=== PATIENT | female | born 1950 | race Caucasian/White ===

== ENCOUNTER → 2018-06-01 09:03 | Outpatient (CLI) | payer OTHER, SELFPAY ==
--- NOTE | 2018-06-01 09:10 | RAD_ITS ---
STUDY: X-RAY - LUMBAR SPINE REASON FOR EXAM: Female, 67 years old. Pain in lower back for years recently worsening. TECHNIQUE: 5 view(s) of the lumbar spine were obtained. COMPARISON: None FINDINGS: There is mild exaggeration of the lumbar lordosis. There is no substantial scoliosis. There is anterolisthesis of L5 on S1 of 3 mm. The alignment is otherwise preserved. There is mild multilevel endplate spondylosis of the lumbar vertebrae. Normal disc space heights. There is no evidence of acute fracture or loss of vertebral axial height. There is there is diffuse facet joint degenerative change without demonstrated spondylolysis of the pars interarticulares. There is atherosclerotic calcification of the abdominal aorta without a demonstrated aneurysm. RAD/L/S Spine Min 4 Views IMPRESSION: Degenerative changes of the lumbar spine as above. Electronically Signed: Fahad Maki DO at 16:59 EDT Tel [phone], Service support ,
== END ==
PROVIDERS: Family Provider Internal Medicine; PCP Internal Medicine; Visit Provider Anesthesiology Pain Medicine
DX: M54.5 Low back pain (principal)
CPT/HCPCS: 72110

== ENCOUNTER 2018-06-04 17:26 | Inpatient (IN) | payer OTHER, SELFPAY ==
[2018-06-04] VITALS (8 sets, daily range): BP systolic 115–128; BP diastolic 70–102; PULSE 79–113; RESP 14–20; TEMP 36.6; O2SAT 94–100; BMI 22.3; BMI 22.5; BMI 22.4
--- NOTE | 2018-06-04 17:48 | RAD_ITS ---
STUDY: X-RAY CHEST REASON FOR EXAM: Female, 67 years old. Dyspnea TECHNIQUE: Frontal view COMPARISON: None. FINDINGS: The lungs are clear and expanded. There is no demonstrated pleural abnormality. Normal size heart. Normal mediastinum and jonathon. Normal visualized pulmonary arteries. Normal visualized aortic arch and descending thoracic aorta. Normal visualized thoracic spine. Normal visualized ribs, clavicles, and shoulders. There is no demonstrated abnormality of the visualized soft tissue structures of the upper abdomen. RAD/Chest 1 View (Portable) IMPRESSION: Normal x-ray examination of the chest. Electronically Signed: Gentry Junior DO at 18:49 EDT Tel [phone], Service support ,
--- NOTE | 2018-06-04 17:48 | EKG12_ITS ---
Test Reason : VOMTTING Blood Pressure : / mmHG Vent. Rate : 095 BPM Atrial Rate : 095 BPM P-R Int : 146 ms QRS Dur : 088 ms QT Int : 360 ms P-R-T Axes : 077 066 076 degrees QTc Int : 452 ms Normal sinus rhythm Possible Left atrial enlargement Nonspecific ST abnormality Abnormal ECG Confirmed by BRAIN COLIN, REJI ([id number]), photograph editor PJ SANCHEZ ([id number] on 06/08/2018 2:52:41 PM Referred By: Sandeep Mehta Confirmed By:REJI DE LA PAZ MD
--- NOTE | 2018-06-04 17:53 | NURSING ---
NO OLD EKGS
[2018-06-04] MEDS: Ipratropium/Albuterol Sulfate 3 ML AMPUL.NEB INHALATION (18:00)
--- NOTE | 2018-06-04 18:05 | ED.VISSUMM ---
- ER Visit Summary Date of Service: 06/04/18 Chief Complaint: Shortness of breath History of Present Illness: The patient is a 67 F with shortness of breath today. The patient also reports nausea, vomiting, cough, congestion, cramps, and increased stoma output. She is worried she might be dehydrated. She has a history of colorectal cancer which was diagnosed and treated about 20 years ago. She does have an ostomy. She is denying any abdominal pain or bleeding. Denying fevers. She is a smoker. Physical Examination: Afebrile. Heart rate 113. 100% on room air. Sitting comfortably but breathing loudly. Nonlabored. Alert and oriented. HEENT exam unremarkable. Heart tachycardic but regular. Lungs show wheezing throughout all [place] with expiration. Abdomen is soft and nontender with slightly hyperactive bowel sounds. Skin appears unremarkable. Test Results: EKG shows sinus rhythm at a rate of [address] and T wave changes. Laboratory studies and chest x-ray are pending. Emergency Department Course and Treatment: Patient placed on a monitor. Treated with a small fluid bolus, Zofran, and a DuoNeb treatment. Will reassess. Lab work showed a white count of 14.7. She met Sirs criteria. Additional fluids were started. Lactate and cultures were added. Labs showed hyponatremia and acute kidney injury. Urinalysis and chest x-ray unremarkable. Troponin normal. Lactate 1.7. Patient looks and feels better after fluids and albuterol. She was covered with Azactam and vancomycin. Hospitalist was contacted for admission. Treatment Plan: As above Disposition: Admission to PCU Impression: 1. Hyponatremia 2. Acute kidney injury 3. Leukocytosis This note was generated with [employer] dictation software. It may contain incorrect words, spelling, and punctuation that were not noted in review of the chart prior to signing ED Disposition - Plan for ED Patient: Chief Complaint: Nausea/Vomiting/Diarrhea Referrals: Daphne Polanco DO [Primary Care Provider] -
[2018-06-04 18:14] LABS: Absolute Lymphocyte Count 1.49 X10^3/ul (0.83-4.51); Absolute Neutrophil Count 12.1 X10^3/uL (2.0-7.7); Basophil# 0.01 X10^3/uL; Basophil% 0.1 % (0-1); Eosinophil# 0.02 X10^3/uL; Eosinophils% 0.1 % (0-5); Lymphocyte # 1.49 X10^3/ul (4.0); Lymphocyte % 10.1 % (19-41); Mean Platelet Vol. 9.8 fl (6.2-12.0); Monocyte# 1.05 X10^3/uL; Monocyte% 7.1 % (0-10); Neutrophil # 12.11 X10^3/uL (2.7-7.7); Neutrophil % 82.4 % (47-70); Platelet Count 235 K/mm3 (150-450); RBC Distribution Width CV 12.6 % (11.6-14.6); RBC Distribution Width SD 40.3 fl (35.1-43.9); Red Blood Count 5.16 M/mm3 (4.2-5.4); White Blood Count 14.7 K/mm3 (4.4-11.0)
[2018-06-04] MEDS: Ondansetron 4 MG/2 ML Vial IV (18:15)
[2018-06-04 18:33] LABS: AST(SGOT) 69 U/L (15-37); Alanine Aminotransfer ALT/SGPT 111 U/L (13-56); Albumin, Serum 4.5 g/dL (3.2-5.0); Alkaline Phosphatase 69 U/L (45-117); Anion Gap 16 (5-15); BUN 48 mg/dL (7-18); BUN/Creat Ratio 19.8 RATIO (10-20); Calcium,Total 9.5 mg/dL (8.5-10.1); Chloride 79 mmol/L (98-107); Creatinine, Serum 2.43 mg/dL (0.55-1.02); EST Glomerular Filtration Rate 21 mL/min (>60); Est Glom Filt Rate - Afr Amer 26 mL/min (>60); Estimated Creatinine Clearance 19.93 ml/min; Globulin 4.6 g/dL (2.2-4.2); Glucose 149 mg/dL (74-106); Potassium 3.8 mmol/L (3.5-5.1); Protein, Total 9.1 g/dL (6.4-8.2); Sodium Level 113 mmol/L (136-145)
--- NOTE | 2018-06-04 18:33 | ED.RN ---
DR. PATEL AWARE OF NA LEVEL 113.
[2018-06-04 18:42] LABS: Hemoglobin 15.8 g/dl (12.0-15.0)
[2018-06-04 18:43] LABS: Differential Indicated SCAN CRITERIA MET; Hematocrit 45.5 % (37-47); POSITIVE COUNT YES; POSITIVE DIFFERENTIAL NO; POSITIVE MORPHOLOGY YES
[2018-06-04 18:44] LABS: Mean Corp Hgb Conc 34.7 g/gl (32-36); Mean Corpuscular Hgb 30.4 pg (27.0-32.0); Mean Corpuscular Volume 87.7 fL (81-99)
[2018-06-04 19:02] LABS: Platelet Estimate ADEQUATE (ADEQ); Red Cell Morphology NORM C+C NORMAL (NORM C&C)
[2018-06-04] MEDS: 0.9% Normal Saline 1,000 ML 999 ML IV (19:33)
[2018-06-04 19:48] LABS: Mucous, Urine 0 SEEN /hpf (<or=2+); Red Blood Cells-Urine 0 SEEN /hpf (0-5)
[2018-06-04 19:57] LABS: Color, Urine Yellow (Yellow); Glucose, Dipstick Normal (Normal); Ketone-Dipstick Negative (Negative); Leukocyte Esterase-Dipstick 100 /ul (Negative); Nitrite-Dipstick Negative (Negative); Occult Blood-Urine 50 /ul (Negative); Protein-Dipstick 30 mg/dl (Negative); Urine Bilirubin Dipstick Negative (Negative); Urine Clarity Clear (Clear); Urine Urobilinogen Normal (Normal)
[2018-06-04 20:05] LABS: Bacteria RARE /hpf (None Seen); Squamous Epithelial Cells - UA 0-5 SEEN /hpf (5-10)
[2018-06-04 20:06] LABS: White Blood Cells 0-5 SEEN /hpf (0-5)
[2018-06-04 20:15] LABS: Lactic Acid 1.7 mmol/L (0.4-2.0)
[2018-06-04] MEDS: Vancomycin IV 1,000 MG/200 ML BAG 200 MG IV (20:38)
--- NOTE | 2018-06-04 21:43 | HP.PCM_ITS ---
Problem List (1) COPD with acute exacerbation Status: Acute (2) Acute viral syndrome Status: Acute (3) Hyponatremia Status: Acute (4) AMAURY (acute kidney injury) Status: Acute (5) Chronic obstructive pulmonary disease Status: Chronic Qualifiers: COPD type: unspecified COPD Qualified Code(s): J44.9 - Chronic obstructive pulmonary disease, unspecified (6) History of colorectal cancer Status: Chronic (7) History of creation of ostomy Status: Chronic (8) Tobacco use Status: Chronic (9) Hypothyroidism Status: Chronic Qualifiers: Hypothyroidism type: unspecified Qualified Code(s): E03.9 - Hypothyroidism, unspecified History of Present Illness Date of Admission: 06/04/18 Chief Complaint: Dyspnea, cough, wheezing, increased ostomy output, N/V The patient is a 67 y/o F w/ PMHx: Chronic COPD, Tobacco use, History of Colorectal Cancer s/p colectomy w/ ostomy, Hypothyroidism who presents to the [facility] ED on 06/04/18 with history of 4-5-day history of dyspnea, cough with mild sputum production, congestion, nausea as well as occasional dry heaving, abdominal cramps and poor intake with increased ostomy output progressively worsening especially over the last 24 hours. She denied any recent seizure activity or mental status changes or neurological symptoms. In the ED workup included T 97.8, heart rate 113, BP 118/71, respiratory rate 17, 100% on room air, CBC with W BC 14.7, hemoglobin 15.8, platelet 235 with left shift, CMP with sodium 113, chloride 79, carbon dioxide 18, anion gap 16, BUN/Cr 48/2.43, glucose 149, lactic acid 1.7, AST/ALT 69/111, troponin less than 0.015, urinalysis with no evidence of acute infection but evidence of dehydration, chest x-ray with no acute process identified. The ED pending chest x-ray given presentation initially administered aztreonam and vancomycin for possible pne umonia, duonebs, Solu-Medrol, normal saline. Past Medical History Past Medical History (Chronic Problems): Chronic Problems Chronic obstructive pulmonary disease (Chronic) History of colorectal cancer (Chronic) History of creation of ostomy (Chronic) Tobacco use (Chronic) Hypothyroidism (Chronic) Allergies Penicillins Allergy (Verified 06/04/18 17:27) Other Home Medications: Ambulatory Orders Medication Instructions Recorded Acetaminophen/Codeine #3 [Tylenol 1 tab PO 4X/DAY 06/04/18 #3 Tablet] Citalopram Hydrobromide 20 mg PO DAILY 06/04/18 [Citalopram HBr] Cyanocobalamin [Vitamin B12] 100 mcg IM QWEEK 06/04/18 Levothyroxine [Synthroid] 100 mcg PO DAILY 06/04/18 Surgical History: - - Patient status post total colectomy with ostomy, tonsillectomy. 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 Tobacco Use: Cigarettes Alcohol: Occasional Drugs: None - *Family History Maternal History Items: - - Patient denies any marked paternal or maternal family history including heart disease, diabetes, cancer. Paternal History Items: - - Patient denies any marked paternal or maternal family history including heart disease, diabetes, cancer. Review of Systems Constitutional: Reports: Anorexia, Malaise, Weakness, Fatigue. Denies: Chills, Fever, Weight Change HEENT: Denies: Head Aches, Sinus Congestion, Sinus Drainage Cardiovascular: Denies: Chest Pain, Palpitations Respiratory: Reports: Cough, Shortness of Breath, Shortness of breath at rest, Shortness of breath upon exertion, Sputum production, Wheezing Gastrointestinal: Reports: Abdominal Pain, Nausea, Vomiting, - - Increased ostomy output. Genitourinary: Denies: Dysuria Musculoskeletal: Reports: Back Pain. Denies: Joint Pain, Joint Tenderness Skin: Denies: Rash, Wounds Neurological: Denies: Numbness, Tingling, Focal weakness Psychiatric: Reports: Anxiety, Depression. Denies: Homicidal Ideations, Suicidal Ideations Hematologic/ Lymphatic: Denies: Easy Bruising, Easy Bleeding VTE Information - Inpt Only VTE Present on Admission: No VTE Mechan Device Prophylaxis: SCD's VTE Pharm Prophylaxis ordered?: Yes Patient Problems: Active and Suspected Problems COPD with acute exacerbation (Acute) Acute viral syndrome (Acute) Hyponatremia (Acute) AMAURY (acute kidney injury) (Acute) Subjective: Seated upright in the ED bed, fatigued appearance, notes feeling improved since initial presentation. Objective: Physical Examination: General: awake, alert, oriented x 3 and cooperative, seated upright in the ED bed in no apparent distress, fatigued appearance. Skin: normal color, turgor, no icterus, cyanosis. HEENT: AT/NC, EOMI, PERRLA, MMM, no carotid bruits or JVD noted. Lungs: Diminished BS, > BL bases, moderate effort, expiratory distant wheezing, no rales or ronchi. Heart: Tachycardic with regular rhythm; no gallop, rub audible. Abdomen: soft, mild generalized discomfort to palpation, no marked distention, hyperactive BS, ostomy present, no HSM. Extremities: no cyanosis, clubbing, or edema. Neurological: patient awake, alert, oriented x 3; cognitive function intact; pupils equally reactive to light and accomodation; cranial nerves II-XII grossly normal, moving all 4 extremities, no focal deficits, strength moderately globally decreased secondary to acute presentation. Psychiatric: affect appears mildly flat, no acute evidence of depressive or anxiety feelings. - Physical Exam Vital Signs Temp Pulse Resp BP Pulse Ox 97.8 F 101 H 17 127/85 H 95 06/04/18 17:28 06/04/18 21:05 06/04/18 21:05 06/04/18 21:05 06/04/18 21:05 Oxygen Delivery Method Room Air Weight: 130 lb 1.164 oz Body Mass Index (BMI) 22.3 Laboratory Tests Past 24 Hrs 06/04/18 06/04/18 06/04/18 18:05 18:05 19:35 WBC 14.7 H RBC 5.16 Hgb 15.8 H Hct 45.5 MCV 87.7 MCH 30.4 MCHC 34.7 RDW 12.6 RDW Differential 40.3 Plt Count 235 MPV 9.8 Immature Gran % (Auto) 0.200 Neut % (Auto) 82.4 H Lymph % (Auto) 10.1 L [place] % (Auto) 7.1 Eos % (Auto) 0.1 Baso % (Auto) 0.1 Absolute Neuts (auto) 12.1 H Absolute Lymphs (auto) 1.49 Total Counted Not Reportable Platelet Estimate ADEQUATE RBC Morphology NORM C+C Sodium 113 L* Potassium 3.8 Chloride 79 L Carbon Dioxide 18.0 L Anion Gap 16 H BUN 48 H Creatinine 2.43 H Estim Creat Clear Calc 19.93 Est GFR (MDRD) Af Amer 26 L Est GFR (MDRD) Non-Af 21 L BUN/Creatinine Ratio 19.8 Glucose 149 H Lactic Acid 1.7 Calcium 9.5 Total Bilirubin 0.90 AST 69 H ALT 111 H Alkaline Phosphatase 69 Troponin I < 0.015 Total Protein 9.1 H Albumin 4.5 Globulin 4.6 H Albumin/Globulin Ratio 1.0 Urine Color Urine Clarity Urine pH Ur Specific [place] Urine Protein Urine Glucose (UA) Urine Ketones Urine Occult Blood Urine Nitrite Urine Bilirubin Urine Urobilinogen Ur Leukocyte Esterase Urine RBC Urine WBC Ur Squamous Epith Cells Urine Bacteria Urine Mucus 06/04/18 19:35 WBC RBC Hgb Hct MCV MCH MCHC RDW RDW Differential Plt Count MPV Immature Gran % (Auto) Neut % (Auto) Lymph % (Auto) [place] % (Auto) Eos % (Auto) Baso % (Auto) Absolute Neuts (auto) Absolute Lymphs (auto) Total Counted Platelet Estimate RBC Morphology Sodium Potassium Chloride Carbon Dioxide Anion Gap BUN Creatinine Estim Creat Clear Calc Est GFR (MDRD) Af Amer Est GFR (MDRD) Non-Af BUN/Creatinine Ratio Glucose Lactic Acid Calcium Total Bilirubin AST ALT Alkaline Phosphatase Troponin I Total Protein Albumin Globulin Albumin/Globulin Ratio Urine Color Yellow Urine Clarity Clear Urine pH 5.0 Ur Specific [place] 1.020 Urine Protein 30 H Urine Glucose (UA) Normal Urine Ketones Negative Urine Occult Blood 50 H Urine Nitrite Negative Urine Bilirubin Negative Urine Urobilinogen Normal Ur Leukocyte Esterase 100 H Urine RBC 0 SEEN Urine WBC 0-5 SEEN Ur Squamous Epith Cells 0-5 SEEN Urine Bacteria RARE Urine Mucus 0 SEEN Assessment/Plan All Active Problems COPD with acute exacerbation (Acute) Acute viral syndrome (Acute) Hyponatremia (Acute) AMAURY (acute kidney injury) (Acute) The patient is a 67 y/o F w/ PMHx: Chronic COPD, Tobacco use, History of Colorectal Cancer s/p colectomy w/ ostomy, Hypothyroidism who presents to the [facility] ED on 06/04/18 with history of 4-5-day history of dyspnea, cough with mild sputum production, congestion, nausea as well as occasional dry heaving, abdominal cramps and poor intake with increased ostomy output progressively worsening especially over the last 24 hours. (1) Acute Sepsis secondary to Suspected Acute Viral Syndrome (See #2) and Acute on chronic COPD exacerbation: CXR w/ chronic changes, CBC on admission w/ WBC 14.7 with L shift, afebrile upon presentation, LA 1.7. Will admit to PCU, maintain on oxygen with wean as tolerated to room air, continue ATC duonebs, PRN albuterol, IV methylprednisolone, HOB, IS parameters, IV Azithromcyin with pending sputum cultures, urine antigens, respiratory viral panel. Suspect that patient likely had viral illness w/ upper respiratory and GI symptoms w/ then exacerbation of her COPD. (2) N/V/Increased ostomy output, ? Acute Viral Syndrome w/ Gastroenteritis: Will continue hydration, will obtain c diff, stool cx with repeat AM CBC. Res piratory viral panel as noted also requested. On abx for concurrent COPD exacerbation given WBC elevation and shift. Anti-emetics, pain regimen PRN. (3) Acute kidney injury: Secondary to GI losses with viral illness suspected as noted. Admission BUN/Cr 48/2.43, prior baseline creatinine not known but no prior history of renal disease. Repeat BMP upon admission w/ improvement BUN/Cr 46/1.67. Will hydrate, hold nephrotoxic medications with repeat BMP q 4 and in AM secondary to severity of hyponatremia. Will obtain FeNa assessment. (4) Severe Hyponatremia, Hypovolemic: Admission Na 113, notably history of N/V, increased ostomy output w/ suspected acute viral syndrome as noted. Will obtain TSH, mag level, FeNa as noted. Patient is on Citalopram; however, denies history of prior chronic hyponatremia, thus will continue and suspect this is only secondary to her acute presentation. Will continue to hydrate, obtain serial BMP and repeat in AM to trend correction of Na. (5) Tobacco Abuse: Encouraged cessation, inpatient consultation per RT, NR if desired. (6) Anxiety and Depression: Given presentation, likely acute hypovolemic hyponatremia, will continue patient SSRI. (7) Hypothyroidism: Continue home synthroid regimen, TSH pending. (8) History of Colorectal Cancer: s/p colectomy w/ ostomy, closely monitor ostomy output, staff genetic counselor consultation. (9) DVT Prophylaxis: SCDs, heparin. Code Visit Inpatient E&M: 27940 Init Hosp L3
[2018-06-04 22:41] LABS: Urine Sodium < 5 mmol/L (Not Establ.)
[2018-06-04 22:51] LABS: Anion Gap 13 (5-15); BUN 46 mg/dL (7-18); BUN/Creat Ratio 27.5 RATIO (10-20); Calcium,Total 7.9 mg/dL (8.5-10.1); Chloride 87 mmol/L (98-107); Creatinine, Serum 1.67 mg/dL (0.55-1.02); EST Glomerular Filtration Rate 33 mL/min (>60); Est Glom Filt Rate - Afr Amer 40 mL/min (>60); Glucose 108 mg/dL (74-106); Magnesium 1.8 mg/dL (1.6-2.6); Potassium 3.1 mmol/L (3.5-5.1); Sodium Level 116 mmol/L (136-145)
[2018-06-04 22:53] LABS: Phosphorus 3.8 mg/dL (2.5-4.9); Thyroid Stim Hormone (TSH) 2.34 uIU/mL (0.358-3.74)
[2018-06-04] MEDS: oxyCODONE 5 MG Tablet PO (23:02)
[2018-06-04] MEDS: guaiFENesin 1,200 MG Tablet 1200 MG PO ×2 (23:02)
[2018-06-04] MEDS: 0.9% Normal Saline 1,000 ML 125 ML IV (23:03)
[2018-06-04] MEDS: Heparin Injection (Vial) 5,000 UNIT/ML VIAL 5000 UNIT SC (23:03)
[2018-06-05] VITALS (15 sets, daily range): BP systolic 116–121; BP diastolic 59–68; PULSE 81–112; RESP 16–20; TEMP 36.8–37; O2SAT 94–96
[2018-06-05] MEDS: Ipratropium/Albuterol Sulfate 3 ML AMPUL.NEB INHALATION ×4 (00:15→10:54)
[2018-06-05 02:04] LABS: Absolute Lymphocyte Count 0.94 X10^3/ul (0.83-4.51); Absolute Neutrophil Count 10.4 X10^3/uL (2.0-7.7); Basophil# 0.01 X10^3/uL; Basophil% 0.1 % (0-1); Eosinophil# 0.01 X10^3/uL; Eosinophils% 0.1 % (0-5); Hematocrit 38.1 % (37-47); Hemoglobin 13.8 g/dl (12.0-15.0); Lymphocyte # 0.94 X10^3/ul (4.0); Lymphocyte % 7.8 % (19-41); Mean Corp Hgb Conc 36.2 g/gl (32-36); Mean Corpuscular Hgb 31.9 pg (27.0-32.0); Mean Platelet Vol. 9.3 fl (6.2-12.0); Neutrophil % 86.8 % (47-70); Platelet Count 199 K/mm3 (150-450); RBC Distribution Width CV 12.2 % (11.6-14.6); RBC Distribution Width SD 38.8 fl (35.1-43.9); Red Blood Count 4.33 M/mm3 (4.2-5.4)
[2018-06-05 02:05] LABS: POSITIVE COUNT NO; POSITIVE DIFFERENTIAL NO; POSITIVE MORPHOLOGY NO
[2018-06-05 02:19] LABS: Anion Gap 12 (5-15); BUN 41 mg/dL (7-18); BUN/Creat Ratio 28.7 RATIO (10-20); Calcium,Total 8.2 mg/dL (8.5-10.1); Chloride 91 mmol/L (98-107); Creatinine, Serum 1.43 mg/dL (0.55-1.02); EST Glomerular Filtration Rate 39 mL/min (>60); Est Glom Filt Rate - Afr Amer 47 mL/min (>60); Estimated Creatinine Clearance 33.87 ml/min; Glucose 134 mg/dL (74-106); Potassium 3.5 mmol/L (3.5-5.1); Sodium Level 120 mmol/L (136-145)
[2018-06-05] MEDS: Heparin Injection (Vial) 5,000 UNIT/ML VIAL 5000 UNIT SC ×3 (06:17→21:58)
[2018-06-05] MEDS: Levothyroxine 100 MCG Tablet PO (06:18)
[2018-06-05] MEDS: 0.9% Normal Saline 1,000 ML 125 ML IV ×3 (06:18→19:42)
[2018-06-05 06:41] LABS: AST(SGOT) 73 U/L (15-37); Alanine Aminotransfer ALT/SGPT 84 U/L (13-56); Albumin, Serum 3.6 g/dL (3.2-5.0); Alkaline Phosphatase 52 U/L (45-117); Anion Gap 11 (5-15); BUN 34 mg/dL (7-18); BUN/Creat Ratio 25.6 RATIO (10-20); Calcium,Total 8.2 mg/dL (8.5-10.1); Chloride 95 mmol/L (98-107); Creatinine, Serum 1.33 mg/dL (0.55-1.02); EST Glomerular Filtration Rate 42 mL/min (>60); Est Glom Filt Rate - Afr Amer 51 mL/min (>60); Estimated Creatinine Clearance 36.42 ml/min; Globulin 3.5 g/dL (2.2-4.2); Glucose 153 mg/dL (74-106); Potassium 3.9 mmol/L (3.5-5.1); Protein, Total 7.1 g/dL (6.4-8.2); Sodium Level 124 mmol/L (136-145)
[2018-06-05] MEDS: Acetaminophen 325 MG Tablet 650 MG PO (07:47)
[2018-06-05] MEDS: Citalopram 20 MG Tablet PO (10:15)
--- NOTE | 2018-06-05 11:17 | NURSING ---
Pt states she cares for her own ostomy. states she has had it since she was in her 30's. denies any needs or supplies.
--- NOTE | 2018-06-05 11:41 | PN_ITS ---
Patient Problems: Active and Suspected Problems COPD with acute exacerbation (Acute) Acute viral syndrome (Acute) Hyponatremia (Acute) AMAURY (acute kidney injury) (Acute) Subjective: Patient was seen and examined today, she cannot remember why she came to the hospital, she does not appear to be in any distress and otherwise she is c arrying on a conversation appropriately. Lab called and she is positive for Shiga toxin, she will need antibiotics for this. Patient's lungs are clear, breath sounds are somewhat distant, I do not believe she needs IV Zithromax at this time. Patient states she is a water drinker and drinks water all day long. Her hyponatremia is better, I think most of the sodium loss was from her gastroenteritis. - Physical Exam General: Alert, Oriented x3, Cooperative, No apparent distress, Well developed, Well nourished HEENT: Atraumatic, PERRLA, EOMI, Normocephalic Oral: Moist Mucosa Neck: Supple, No Nuchal Rigidity, Trachea Midline, Thyroid Normal Size and Texture Lungs: Clear to auscultation, Normal air movement, No rhonchi, No wheeze, No rales Cardiovascular: Regular rate, Regular Rhythm, Normal S1, Normal S2, No murmurs Abdomen: Bowel Sounds Present, Soft, Non Tender, Non-Distended Extremities: No clubbing, No cyanosis, No edema, Capillary Refill Less than 3 Seconds Skin: No rashes, No breakdown Musculoskeletal: No Tenderness to Palpation of Joints or Extremities Neurological: Cranial nerves II-XII grossly intact, Sensory exam intact to light touch and pain, Coordination normal Psych/Mental Status: Normal Affect, Appropriate, Alert and oriented to time, place, person, mood and affect Vital Signs Temp Pulse Resp BP Pulse Ox 98.6 F 92 18 116/68 95 06/05/18 10:12 06/05/18 11:03 06/05/18 10:12 06/05/18 10:12 06/05/18 10:12 Oxygen Delivery Method Room Air Weight: 59.1 kg Body Mass Index (BMI) 22.4 Intake and Output for Last 24 Hours 06/03/18 06/04/18 06/05/18 23:59 23:59 23:59 Intake Total 2751 / 2751 Balance 2751 / 2751 Microbiology Past 72 Hours 06/04/18 22:55 Enteric Bacteriology - Final Stool Shiga Toxin 1 06/05/18 00:30 Respiratory Panel (PCR) - Final Mucosa - Nasopharyngeal 06/04/18 22:55 C. difficile DNA Amplification - Final Stool 06/04/18 19:35 Streptococcus pneumoniae Antigen (M - Final Urine, Clean Catch 06/04/18 19:35 Legionella Antigen - Final Urine, Clean Catch Laboratory Tests Past 24 Hrs 06/04/18 06/04/18 06/04/18 18:05 18:05 19:35 WBC 14.7 H RBC 5.16 Hgb 15.8 H Hct 45.5 MCV 87.7 MCH 30.4 MCHC 34.7 RDW 12.6 RDW Differential 40.3 Plt Count 235 MPV 9.8 Immature Gran % (Auto) 0.200 Neut % (Auto) 82.4 H Lymph % (Auto) 10.1 L [place] % (Auto) 7.1 Eos % (Auto) 0.1 Baso % (Auto) 0.1 Absolute Neuts (auto) 12.1 H Absolute Lymphs (auto) 1.49 Total Counted Not Reportable Platelet Estimate ADEQUATE RBC Morphology NORM C+C Sodium 113 L* Potassium 3.8 Chloride 79 L Carbon Dioxide 18.0 L Anion Gap 16 H BUN 48 H Creatinine 2.43 H Estim Creat Clear Calc 19.93 Est GFR (MDRD) Af Amer 26 L Est GFR (MDRD) Non-Af 21 L BUN/Creatinine Ratio 19.8 Glucose 149 H Lactic Acid 1.7 Calcium 9.5 Phosphorus Magnesium Total Bilirubin 0.90 AST 69 H ALT 111 H Alkaline Phosphatase 69 Troponin I < 0.015 Total Protein 9.1 H Albumin 4.5 Globulin 4.6 H Albumin/Globulin Ratio 1.0 TSH Urine Color Urine Clarity Urine pH Ur Specific [place] Urine Protein Urine Glucose (UA) Urine Ketones Urine Occult Blood Urine Nitrite Urine Bilirubin Urine Urobilinogen Ur Leukocyte Esterase Urine RBC Urine WBC Ur Squamous Epith Cells Urine Bacteria Urine Mucus Ur Random Sodium Urine Creatinine 06/04/18 06/04/18 06/04/18 19:35 19:35 19:35 WBC RBC Hgb Hct MCV MCH MCHC RDW RDW Differential Plt Count MPV Immature Gran % (Auto) Neut % (Auto) Lymph % (Auto) [place] % (Auto) Eos % (Auto) Baso % (Auto) Absolute Neuts (auto) Absolute Lymphs (auto) Total Counted Platelet Estimate RBC Morphology Sodium Potassium Chloride Carbon Dioxide Anion Gap BUN Creatinine Estim Creat Clear Calc Est GFR (MDRD) Af Amer Est GFR (MDRD) Non-Af BUN/Creatinine Ratio Glucose Lactic Acid Calcium Phosphorus Magnesium Total Bilirubin AST ALT Alkaline Phosphatase Troponin I Total Protein Albumin Globulin Albumin/Globulin Ratio TSH Urine Color Yellow Urine Clarity Clear Urine pH 5.0 Ur Specific [place] 1.020 Urine Protein 30 H Urine Glucose (UA) Normal Urine Ketones Negative Urine Occult Blood 50 H Urine Nitrite Negative Urine Bilirubin Negative Urine Urobilinogen Normal Ur Leukocyte Esterase 100 H Urine RBC 0 SEEN Urine WBC 0-5 SEEN Ur Squamous Epith Cells 0-5 SEEN Urine Bacteria RARE Urine Mucus 0 SEEN Ur Random Sodium < 5 Urine Creatinine 239.00 06/04/18 06/04/18 06/05/18 22:22 22:22 01:53 WBC RBC Hgb Hct MCV MCH MCHC RDW RDW Differential Plt Count MPV Immature Gran % (Auto) Neut % (Auto) Lymph % (Auto) [place] % (Auto) Eos % (Auto) Baso % (Auto) Absolute Neuts (auto) Absolute Lymphs (auto) Total Counted Platelet Estimate RBC Morphology Sodium 116 L* 120 L Potassium 3.1 L 3.5 Chloride 87 L 91 L Carbon Dioxide 16.0 L 17.0 L Anion Gap 13 12 BUN 46 H 41 H Creatinine 1.67 H 1.43 H Estim Creat Clear Calc 29.00 33.87 Est GFR (MDRD) Af Amer 40 L 47 L Est GFR (MDRD) Non-Af 33 L 39 L BUN/Creatinine Ratio 27.5 H 28.7 H Glucose 108 H 134 H Lactic Acid Calcium 7.9 L 8.2 L Phosphorus 3.8 Magnesium 1.8 Total Bilirubin AST ALT Alkaline Phosphatase Troponin I Total Protein Albumin Globulin Albumin/Globulin Ratio TSH 2.34 Urine Color Urine Clarity Urine pH Ur Specific [place] Urine Protein Urine Glucose (UA) Urine Ketones Urine Occult Blood Urine Nitrite Urine Bilirubin Urine Urobilinogen Ur Leukocyte Esterase Urine RBC Urine WBC Ur Squamous Epith Cells Urine Bacteria Urine Mucus Ur Random Sodium Urine Creatinine 06/05/18 06/05/18 01:53 05:40 WBC 12.0 H RBC 4.33 Hgb 13.8 Hct 38.1 MCV 88.0 MCH 31.9 MCHC 36.2 H RDW 12.2 RDW Differential 38.8 Plt Count 199 MPV 9.3 Immature Gran % (Auto) 0.200 Neut % (Auto) 86.8 H Lymph % (Auto) 7.8 L [place] % (Auto) 5.0 Eos % (Auto) 0.1 Baso % (Auto) 0.1 Absolute Neuts (auto) 10.4 H Absolute Lymphs (auto) 0.94 Total Counted Not Reportable Platelet Estimate RBC Morphology Sodium 124 L Potassium 3.9 Chloride 95 L Carbon Dioxide 18.0 L Anion Gap 11 BUN 34 H Creatinine 1.33 H Estim Creat Clear Calc 36.42 Est GFR (MDRD) Af Amer 51 L Est GFR (MDRD) Non-Af 42 L BUN/Creatinine Ratio 25.6 H Glucose 153 H Lactic Acid Calcium 8.2 L Phosphorus Magnesium Total Bilirubin 0.70 AST 73 H ALT 84 H Alkaline Phosphatase 52 Troponin I Total Protein 7.1 Albumin 3.6 Globulin 3.5 Albumin/Globulin Ratio 1.0 TSH Urine Color Urine Clarity Urine pH Ur Specific [place] Urine Protein Urine Glucose (UA) Urine Ketones Urine Occult Blood Urine Nitrite Urine Bilirubin Urine Urobilinogen Ur Leukocyte Esterase Urine RBC Urine WBC Ur Squamous Epith Cells Urine Bacteria Urine Mucus Ur Random Sodium Urine Creatinine Medical Necessity - Tobacco Use Smoking Status: Current every day smoker Tobacco Use: Cigarettes Assessment/Plan All Active Problems COPD with acute exacerbation (Acute) Acute viral syndrome (Acute) Hyponatremia (Acute) AMAURY (acute kidney injury) (Acute) #1 acute gastroenteritis with positive Shiga toxin, probably bacterial in nature-patient will be treated with supportive measures such as IV fluids, labs will be rechecked tomorrow #2 hyponatremia-secondary to gastroenteritis and excessive water drinking, patient has been cautioned to limit her water intake to when she is thirsty, patient's labs will be checked tomorrow #3 exacerbation of COPD-I have decided to change the patient from IV corticosteroids to inhaled Pulmicort, she is not wheezing today and does not appear to be in any distress and she is on room air. I have also changed her DuoNeb's to every 6 hours. #4 hypothyroidism #5 depression #6 acute kidney injury secondary to acute gastroenteritis-probably bacterial in nature-continue IV fluids and recheck labs Code Visit Inpatient E&M: 56057 Subs Hosp L2
[2018-06-05] MEDS: oxyCODONE 5 MG Tablet PO ×2 (13:00→17:32)
--- NOTE | 2018-06-05 14:12 | CASEMGMT ---
SHANTA POWELL Assessment: Face to Face with patient for initial transition planning/care coordination assessment. SHANTA POWELL introduced self and role at [facility], pt voices understanding and consents to assessment at this time. Pt is sitting up in bed in no distress at this time. Pt is A/O x4 at this time and answers all questions appropriately at this time. Care providers, pharmacy, and demographics verified at this time. PCP: Sherri Specialists: David Montague Pharmacy: [facility] Insurance: [facility] Prescription Benefit: [facility] Living Will/HPOA: Pt states does not have either and declines info at this time. Pt states my is who will be making all decisions if I can't. LNOK: Cr Steinberg, Living Arrangements: Pt states lives with in a duplex with no stairs and states no concerns at home at this time. Transportation: Pt states drives self and states no transportation concerns at this time. DME/HHC: Pt states has an ostomy and currently gets supplies through [facility] and they are closing soon. Pt provided with info on 2 other medical supply companies at this time, voices understanding and appreciation at this time. Pt states no need for any further DME at this time. Pt is disabled. Pt states no concerns with going home at time of discharge. Pt voices no further concerns/needs at this time. Plan: [place] SHANTA POWELL
[2018-06-05] MEDS: Ondansetron 4 MG/2 ML Vial IV (15:53)
[2018-06-05] MEDS: proMETHazine 25 MG/ML Syringe 12.5 MG IV (20:32)
[2018-06-05] MEDS: 0.9% NaCl Peripheral Flush Adult/Peds IV (20:33)
[2018-06-05] MEDS: guaiFENesin 1,200 MG Tablet 1200 MG PO (21:58)
[2018-06-06] VITALS (7 sets, daily range): BP systolic 119–130; BP diastolic 63–70; PULSE 82–133; RESP 16–20; TEMP 36.8; O2SAT 93–100
[2018-06-06] MEDS: 0.9% Normal Saline 1,000 ML 125 ML IV (03:46)
[2018-06-06] MEDS: Heparin Injection (Vial) 5,000 UNIT/ML VIAL 5000 UNIT SC (05:22)
[2018-06-06] MEDS: Levothyroxine 100 MCG Tablet PO (05:22)
[2018-06-06] MEDS: proMETHazine 25 MG/ML Syringe 12.5 MG IV (05:42)
[2018-06-06] MEDS: Budesonide Respules 0.5 MG/2 ML AMPUL.NEB. INHALATION (06:34)
[2018-06-06] MEDS: Ipratropium/Albuterol Sulfate 3 ML AMPUL.NEB INHALATION (06:34)
[2018-06-06 06:49] LABS: Anion Gap 8 (5-15); BUN 19 mg/dL (7-18); BUN/Creat Ratio 21.8 RATIO (10-20); Calcium,Total 7.9 mg/dL (8.5-10.1); Chloride 100 mmol/L (98-107); Creatinine, Serum 0.87 mg/dL (0.55-1.02); EST Glomerular Filtration Rate 69 mL/min (>60); Est Glom Filt Rate - Afr Amer 84 mL/min (>60); Estimated Creatinine Clearance 55.67 ml/min; Glucose 104 mg/dL (74-106); Potassium 3.7 mmol/L (3.5-5.1); Sodium Level 128 mmol/L (136-145)
[2018-06-06] MEDS: guaiFENesin 1,200 MG Tablet 1200 MG PO (09:20)
[2018-06-06] MEDS: Citalopram 20 MG Tablet PO (09:20)
[2018-06-06] MEDS: oxyCODONE 5 MG Tablet PO (09:21)
[2018-06-06] MEDS: Ondansetron 4 MG/2 ML Vial IV (09:21)
[2018-06-06] MEDS: 0.9% NaCl Peripheral Flush Adult/Peds IV (09:22)
--- NOTE | 2018-06-06 10:44 | DCINST_ITS ---
- Discharge Diagnoses Current Active Problems: Current Active and Chronic Problems Chronic obstructive pulmonary disease (Chronic) History of colorectal cancer (Chronic) History of creation of ostomy (Chronic) Tobacco use (Chronic) COPD with acute exacerbation (Acute) Acute viral syndrome (Acute) Hyponatremia (Acute) AMAURY (acute kidney injury) (Acute) Hypothyroidism (Chronic) You will use the following diet at home:: No restrictions Your food should be the consistency of: Regular Your liquids should be the consistency of: Regular/Thin Discharge Activity: Return to Normal Activity Weight Bearing Status: Full weight bearing Allergies/Adverse Reactions: Allergies Penicillins Allergy (Verified 06/04/18 17:27) Other Medications to take at Discharge Acetaminophen/Codeine #3 [Tylenol #3 Tablet] 1 tab PO 4X/DAY 06/04/18 Citalopram Hydrobromide [Citalopram HBr] 20 mg PO DAILY 06/04/18 Cyanocobalamin [Vitamin B12] 100 mcg IM QWEEK 06/04/18 Levothyroxine [Synthroid] 100 mcg PO DAILY 06/04/18 Acetaminophen [Tylenol Tablet] 650 mg PO Q6H PRN PRN tablet 06/06/18 Primary Care Physician: Daphne Polanco DO [Primary Care Provider] - Please follow up with your Primary Care Physician in: this week-get BMP drawn Test Results: Test results from this visit will be discussed in further detail at your follow- up appointment, if applicable.
--- NOTE | 2018-06-06 12:10 | DS.PCM_ITS ---
Discharge Date and Diagnosis - Problem List Patient Problems: Active and Suspected Problems COPD with acute exacerbation (Acute) Acute viral syndrome (Acute) Hyponatremia (Acute) AMAURY (acute kidney injury) (Acute) Date of Admission: 06/04/18 Date of Discharge: 06/06/18 - Primary Discharge Diagnosis Active and Suspected Problems #1 hyponatremia secondary to E. coli induced gastroenteritis #2 E. coli induced gastroenteritis-Shiga positive toxin #3 acute exacerbation of COPD #4 acute kidney injury secondary to E. 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 Lab work performed in the emergency room showed an elevated white count of 14.7, patient was hyponatremic and her creatinine and BUN were elevated. Urinalysis and chest x-ray were unremarkable, lactic acid was 1.7. On physical examination, patient had expiratory wheezes over her lungs, she was given an albuterol treatment, she was initially given antibiotics by the emergency room physician, the hospitalist service was contacted for admission and antibiotics were not continued. Patient was given IV fluids and labs are monitored, patient was given IV corticosteroids and then p.o. corticosteroids briefly, patient's sodium improved, her BUN and creatinine dropped, aerosol treatments were administered and the patient's breathing stabilized and she did not have wheezing. Enteric pathogen panel revealed positive Shiga toxin which was likely secondary to E. coli gastroenteritis. Patient was able to intake regular diet. On 06/06/18, patient was seen and examined: On examination she appeared in good health and spirits. Vital signs as documented. Skin warm and dry and without overt rashes. Neck without JVD. Lungs clear, breath sounds were distant. Heart exam notable for regular rhythm, normal sounds and absence of murmurs, rubs or gallops. Abdomen unremarkable and without evidence of organomegaly, masses, or abdominal aortic enlargement. Extremities nonedematous. Psych: Patient was alert and oriented x3 and in no distress. Neuro: Cranial nerves II through XII are grossly intact, no neurological deficits were noted On 06/06/18, patient was discharged home in stable condition, I did not feel that she needed follow-up treatment for her exacerbation of COPD, she had no wheezing and she did not want to go on any metered-dose inhaler or prednisone. Her E. coli gastroenteritis did not require antibiotic treatment. Discharge Activity: Return to Normal Activity Weight Bearing Status: Full weight bearing Home Medications: Medications to take at Discharge Acetaminophen/Codeine #3 [Tylenol #3 Tablet] 1 tab PO 4X/DAY 06/04/18 Citalopram Hydrobromide [Citalopram HBr] 20 mg PO DAILY 06/04/18 Cyanocobalamin [Vitamin B12] 100 mcg IM QWEEK 06/04/18 Levothyroxine [Synthroid] 100 mcg PO DAILY 06/04/18 Acetaminophen [Tylenol Tablet] 650 mg PO Q6H PRN PRN tablet 06/06/18 Primary Care Physician: Daphne Polanco DO [Primary Care Provider] - Please follow up with your Primary Care Physician in: this week-get BMP drawn Disposition: Home Minutes spent on discharge:: 32 Patient Condition:: Stable Medical Necessity - Tobacco Use Smoking Status: Current every day smoker Tobacco Use: Cigarettes Meaningful Use Info Meaningful Use Diagnoses (Choose all that apply): None applicable Code Visit Inpatient E&M: 65803 Disch Hosp
[2018-06-06] MEDS: Ondansetron 8 MG Tablet 4 MG PO (13:16)
== END 2018-06-06 13:59 | disposition home or self-care (01) | DRG 872 ==
LOC: ED 18:30 → PCU 06-05 06:57
PROVIDERS: Admitting Provider Family Medicine; Emergency Provider Emergency Medicine; Family Provider Internal Medicine; PCP Internal Medicine; Visit Provider Internal Medicine
DX: A41.51 Sepsis due to Escherichia coli [E. coli] (principal); A04.4 Other intestinal Escherichia coli infections; N17.9 Acute kidney failure, unspecified; E87.1 Hypo-osmolality and hyponatremia; J44.1 Chronic obstructive pulmonary disease with (acute) exacerbation; E03.9 Hypothyroidism, unspecified; E87.6 Hypokalemia; F17.210 Nicotine dependence, cigarettes, uncomplicated; Z93.3 Colostomy status; Z90.49 Acquired absence of other specified parts of digestive tract; Z85.038 Personal history of other malignant neoplasm of large intestine
CPT/HCPCS: 36415; 71045; 80048; 80053; 81001; 82570; 83605; 83735; 84100; 84300; 84443; 84484; 85025; 87040; 87086; 87088; 87449; 87493; 87506; 87633; 93005; 94640; 97802; 99283; 99406; J7030; J7040; A4216; J2405

== ENCOUNTER 2018-06-10 11:56 | Inpatient (IN) | payer OTHER, SELFPAY ==
[2018-06-10 11:57] VITALS: BP 89/52; PULSE 113; RESP 24; TEMP 36.6; O2SAT 97; BMI 22.3
[2018-06-10] MEDS: 0.9% Normal Saline 1,000 ML 1000 ML IV (12:55)
--- NOTE | 2018-06-10 13:09 | ED.RN ---
[facility] [address] CALLED FROM THE LAB. DR LYONS AWARE
[2018-06-10 13:10] LABS: ALB/GLOB Ratio 0.9 RATIO (0.9-2.4); AST(SGOT) 39 U/L (15-37); Alanine Aminotransfer ALT/SGPT 91 U/L (13-56); Albumin, Serum 4.1 g/dL (3.2-5.0); Alkaline Phosphatase 64 U/L (45-117); Anion Gap 14 (5-15); BUN 81 mg/dL (7-18); BUN/Creat Ratio 37.9 RATIO (10-20); Calcium,Total 9.7 mg/dL (8.5-10.1); Chloride 84 mmol/L (98-107); Creatinine, Serum 2.14 mg/dL (0.55-1.02); EST Glomerular Filtration Rate 25 mL/min (>60); Est Glom Filt Rate - Afr Amer 30 mL/min (>60); Estimated Creatinine Clearance 22.63 ml/min; Globulin 4.5 g/dL (2.2-4.2); Glucose 200 mg/dL (74-106); Lipase 1043 U/L (73-393); Potassium 3.6 mmol/L (3.5-5.1); Protein, Total 8.6 g/dL (6.4-8.2); Sodium Level 114 mmol/L (136-145)
[2018-06-10 13:14] VITALS: BP 105/67; PULSE 94; RESP 17; O2SAT 97
[2018-06-10 13:16] LABS: Mucous, Urine 0 SEEN /hpf (<or=2+)
[2018-06-10 13:18] LABS: Color, Urine Yellow (Yellow); Glucose, Dipstick Normal (Normal); Ketone-Dipstick Negative (Negative); Leukocyte Esterase-Dipstick 25 /ul (Negative); Nitrite-Dipstick Negative (Negative); Occult Blood-Urine 10 /ul (Negative); Protein-Dipstick 15 mg/dl (Negative); Specific Gravity, Urine 1.015 (1.002-1.030); Urine Bilirubin Dipstick Negative (Negative); Urine Clarity Sl. Cloudy (Clear); Urine Urobilinogen Normal (Normal)
[2018-06-10 13:24] LABS: Bacteria 1+ /hpf (None Seen); Red Blood Cells-Urine 0-5 SEEN /hpf (0-5); Squamous Epithelial Cells - UA 0-5 SEEN /hpf (5-10); White Blood Cells 0-5 SEEN /hpf (0-5)
[2018-06-10 13:29] LABS: Absolute Lymphocyte Count 2.18 X10^3/ul (0.83-4.51); Absolute Neutrophil Count 12.4 X10^3/uL (2.0-7.7); Basophil# 0.02 X10^3/uL; Basophil% 0.1 % (0-1); Eosinophil# 0.07 X10^3/uL; Eosinophils% 0.4 % (0-5); Hematocrit 45.9 % (37-47); Lymphocyte # 2.18 X10^3/ul (4.0); Lymphocyte % 13.5 % (19-41); Mean Corpuscular Hgb 31.5 pg (27.0-32.0); Mean Corpuscular Volume 85.2 fL (81-99); Monocyte# 1.39 X10^3/uL; Monocyte% 8.6 % (0-10); Neutrophil # 12.39 X10^3/uL (2.7-7.7); Neutrophil % 76.7 % (47-70); Platelet Count 301 K/mm3 (150-450); RBC Distribution Width CV 12.1 % (11.6-14.6); RBC Distribution Width SD 37.7 fl (35.1-43.9); Red Blood Count 5.39 M/mm3 (4.2-5.4); White Blood Count 16.2 K/mm3 (4.4-11.0)
[2018-06-10 13:30] LABS: POSITIVE COUNT NO; POSITIVE DIFFERENTIAL NO; POSITIVE MORPHOLOGY NO
--- NOTE | 2018-06-10 13:39 | ED.DCSUM_ITS ---
- ER Visit Summary Date of Service: 06/10/18 Chief Complaint: [Generalized weakness] History of Present Illness: The patient is a 67 F [presents to the emergency department complaint of feeling weak and lightheaded. Patient was admitted on the of the month and discharged on 06 June. Patient was admitted for vomiting and diarrhea and tested positive for Shiga toxin. Patient still having large amount of output from colostomy. She denies any fever. She has not had any further vomiting. There has been decreased p.o. intake. She denies any abdominal pain. She has not been on antibiotics. She denies urinary symptoms.] Physical Examination: [HEENT-PERRLA, EOMI. Cranial nerves II through XII grossly intact. TMs clear. Mucous membranes moist. No adenopathy. Cardiovascular-regular rate and rhythm without murmur or ectopy Lungs-clear to auscultation, chest wall stable without crepitus or subcu emphysema Abdomen-normoactive bowel sounds, soft, nontender, no rebound or rigidity, no peritoneal signs. Patient does have a colostomy in the right lower quadrant in the inferior portion of the ostomy is slightly erythematous and irritated. Extremities-intact ?4, normal range of motion, normal pulses, atraumatic] Test Results: [CBC with differential obtained showed a white count 16.2, hemoglobin 17, hematocrit 46, platelets 301. Chemistry showed a sodium of 114, potassium 3.6, chloride 84, CO2 16, BUN 81 creatinine 2.14. LFTs unremarkable. Urinalysis was unremarkable.] Emergency Department Course and Treatment: [Patient was given 1 L normal same fluid bolus and treated with normal saline.] Treatment Plan: [Admit for hydration and correction of electrolytes] Disposition: [Admit] Impression: [Hyponatremia Dehydration Gastroenteritis positive for Shiga toxin] This note was generated with [employer] dictation software. It may contain incorrect words, spelling, and punctuation that were not noted in review of the chart prior to signing ED Disposition - Plan for ED Patient: Chief Complaint: General Illness Referrals: Daphne Polanco DO [Primary Care Provider] -
[2018-06-10 13:50] VITALS: BP 116/71; PULSE 93; RESP 17; O2SAT 97
[2018-06-10] MEDS: 0.9% Normal Saline 1,000 ML 200 ML IV (13:56)
--- NOTE | 2018-06-10 13:59 | PCM.HP.STD ---
Problem List (1) Pancreatitis Status: Acute Qualifiers: Chronicity: acute (2) AMAURY (acute kidney injury) Status: Acute (3) Hyponatremia Status: Acute History of Present Illness Date of Admission: 06/10/18 Chief Complaint: weakness. not herself The patient is a 67 year old F who was just discharged on being admitted for acute hyponatremia and renal failure. Patient was having diarrhea and did test positive for the Shiga toxin. Patient x-rays is having higher output from her ostomy than normal. The actual output has actually normalized since then but patient states that she has not been eating or drinking as much. Patient states that she has having trouble swallowing and is able to eat some but does have to take some water with that. She denies any abdominal pain. Patient presents with a sodium of 114, creatinine of 2.1 for the baseline of 0.87. Patient's white count was also elevated at 16.2 with a slight left shift. Urinalysis was negative. Patient did have a lipase of greater than 1000 but as mentioned above, patient is not having any abdominal pain. Patient being brought in for further hyponatremia treatment and workup. [] Past Medical History Past Medical History (Chronic Problems): Chronic Problems (Last Updated 06/10/18 @ 14:02 by Willy Steve DO) Chronic obstructive pulmonary disease (Chronic) History of colorectal cancer (Chronic) History of creation of ostomy (Chronic) Tobacco use (Chronic) Hypothyroidism (Chronic) Medical History: Medical History (Last Updated 06/10/18 @ 14:02 by Willy Steve DO) COPD (chronic obstructive pulmonary disease) J44.9 Colon cancer C18.9 Hypothyroidism E03.9 Allergies Penicillins Allergy (Verified 06/10/18 12:00) Other Home Medications: Ambulatory Orders Medication Instructions Recorded Acetaminophen/Codeine #3 [Tylenol 1 tab PO 4X/DAY 06/04/18 #3 Tablet] Citalopram Hydrobromide 20 mg PO DAILY 06/04/18 [Citalopram HBr] Cyanocobalamin [Vitamin B12] 100 mcg IM QWEEK 06/04/18 Levothyroxine [Synthroid] 100 mcg PO DAILY 06/04/18 Surgical History: - - Patient status post total colectomy with ostomy, tonsillectomy. Psychiatric History: Anxiety, Depression HEDIS REVIEW NURSE History: No pertinent HEDIS REVIEW NURSE history Smoking Status: Current some day smoker Tobacco Use: Cigarettes Alcohol: None Drugs: None - *Family History Maternal History Items: - - Patient denies any marked paternal or maternal family history including heart disease, diabetes, cancer. Paternal History Items: - - Patient denies any marked paternal or maternal family history including heart disease, diabetes, cancer. Review of Systems Constitutional: Reports: Malaise, Weakness, Fatigue. Denies: Anorexia, Chills, Fever Eyes: Reports: - - glasses. Denies: Blurred vision, Double vision HEENT: Denies: Head Aches, Sinus Congestion, Sinus Drainage Cardiovascular: Denies: Chest Pain, Palpitations Respiratory: Denies: Cough, Shortness of breath at rest, Sputum production Gastrointestinal: Denies: Abdominal Pain, Nausea, Vomiting Genitourinary: Denies: Dysuria Musculoskeletal: Denies: Joint Pain, Joint Tenderness Skin: Denies: Rash, Wounds Neurological: Denies: Numbness, Tingling, Focal weakness Hematologic/ Lymphatic: Denies: Easy Bruising, Easy Bleeding Comment: All review of systems are negative except as mentioned in the history of present illness and the other review of systems. VTE Information - Inpt Only VTE Present on Admission: No VTE Pharm Prophylaxis ordered?: Yes Patient Problems: Active and Suspected Problems (Last Updated 06/10/18 @ 14:02 by Willy Steve DO) Pancreatitis (Acute) - Physical Exam General: Alert, Oriented x3, Cooperative HEENT: Atraumatic, Normocephalic, - - Scleral icterus Oral: Moist Mucosa, No Gingival or Mucosal Lesions/ Ulcerations, - - Mild body stage III. Cannot visualize posterior pharynx. No obvious oral thrush Neck: Negative Hepatojugular Reflux, Thyroid Normal Size and Texture Lungs: Clear to auscultation, Normal air movement Cardiovascular: Regular rate, Regular Rhythm, Normal S1, Normal S2, No murmurs Abdomen: Bowel Sounds Present, Soft, Non Tender, Non-Distended, No Hepato-splenomegaly, - - Right side ostomy Extremities: No edema, Capillary Refill Less than 3 Seconds, No Calf Tenderness Skin: No rashes, No breakdown Musculoskeletal: No Tenderness to Palpation of Joints or Extremities Neurological: Sensory exam intact to light touch and pain, - - No clonus Psych/Mental Status: Normal Affect, Appropriate Vital Signs Temp Pulse Resp BP Pulse Ox 36.6 C 93 17 116/71 97 06/10/18 11:57 06/10/18 13:50 06/10/18 13:50 06/10/18 13:50 06/10/18 13:50 Oxygen Delivery Method Room Air Weight: 58.967 kg Body Mass Index (BMI) 22.3 Laboratory Tests Past 24 Hrs 06/10/18 06/10/18 06/10/18 12:39 12:39 12:51 WBC 16.2 H RBC 5.39 Hgb 17.0 H Hct 45.9 MCV 85.2 MCH 31.5 MCHC 37.0 H RDW 12.1 RDW Differential 37.7 Plt Count 301 MPV 10.0 Immature Gran % (Auto) 0.700 Neut % (Auto) 76.7 H Lymph % (Auto) 13.5 L Phillips % (Auto) 8.6 Eos % (Auto) 0.4 Baso % (Auto) 0.1 Absolute Neuts (auto) 12.4 H Absolute Lymphs (auto) 2.18 Total Counted Not Reportable Sodium 114 L* Potassium 3.6 Chloride 84 L Carbon Dioxide 16.0 L Anion Gap 14 BUN 81 H Creatinine 2.14 H Estim Creat Clear Calc 22.63 Est GFR (MDRD) Af Amer 30 L Est GFR (MDRD) Non-Af 25 L BUN/Creatinine Ratio 37.9 H Glucose 200 H Lactic Acid 2.0 Calcium 9.7 Total Bilirubin 0.60 AST 39 H ALT 91 H Alkaline Phosphatase 64 Total Protein 8.6 H Albumin 4.1 Globulin 4.5 H Albumin/Globulin Ratio 0.9 Lipase 1043 H Urine Color Urine Clarity Urine pH Ur Specific [place] Urine Protein Urine Glucose (UA) Urine Ketones Urine Occult Blood Urine Nitrite Urine Bilirubin Urine Urobilinogen Ur Leukocyte Esterase Urine RBC Urine WBC Ur Squamous Epith Cells Urine Bacteria Urine Mucus 06/10/18 13:05 WBC RBC Hgb Hct MCV MCH MCHC RDW RDW Differential Plt Count MPV Immature Gran % (Auto) Neut % (Auto) Lymph % (Auto) Phillips % (Auto) Eos % (Auto) Baso % (Auto) Absolute Neuts (auto) Absolute Lymphs (auto) Total Counted Sodium Potassium Chloride Carbon Dioxide Anion Gap BUN Creatinine Estim Creat Clear Calc Est GFR (MDRD) Af Amer Est GFR (MDRD) Non-Af BUN/Creatinine Ratio Glucose Lactic Acid Calcium Total Bilirubin AST ALT Alkaline Phosphatase Total Protein Albumin Globulin Albumin/Globulin Ratio Lipase Urine Color Yellow Urine Clarity Sl. Cloudy Urine pH 5.0 Ur Specific [place] 1.015 Urine Protein 15 H Urine Glucose (UA) Normal Urine Ketones Negative Urine Occult Blood 10 H Urine Nitrite Negative Urine Bilirubin Negative Urine Urobilinogen Normal Ur Leukocyte Esterase 25 H Urine RBC 0-5 SEEN Urine WBC 0-5 SEEN Ur Squamous Epith Cells 0-5 SEEN Urine Bacteria 1+ Urine Mucus 0 SEEN Assessment/Plan All Active Problems (Last Updated 06/10/18 @ 14:02 by Willy Steve DO) COPD with acute exacerbation (Acute) Acute viral syndrome (Acute) Hyponatremia (Acute) AMAURY (acute kidney injury) (Acute) Pancreatitis (Acute) 1. Hyponatremia Recurrent but not due to high output from her ostomy this time. Unclear as to the source but could be related with volume depletion versus hypothyroidism versus versus other Patient will be on IV fluids Check TSH, Cortrosyn stim test, urine sodium, urine osmolality and serum osmolality Patient advised that she is going to be admitted prior for the sodium somewhat normalized but understanding that it may not get to the normal range when she is discharged 2. Acute kidney injury Presumed prerenal Was normalized when she left IV fluids Reevaluate 3. Acute pancreatitis Based solely on labs as her lipase was greater than 1000 No prior lipase available Patient will be on clear diet IV fluids Check right upper quadrant ultrasound Follow-up lab work in the morning 4. Leukocytosis May be reactive Patient did have a positive Shiga toxin when she was here last but no active high output at this time Will monitor Urinalysis negative 5. DVT prophylaxis with heparin Case discussed with the patient's friend at bedside. Code Visit Inpatient E&M: 17049 Init Hosp L3
--- NOTE | 2018-06-10 14:03 | HP.PCM_ITS ---
Problem List (1) Pancreatitis Status: Acute Qualifiers: Chronicity: acute (2) AMAURY (acute kidney injury) Status: Acute (3) Hyponatremia Status: Acute History of Present Illness Date of Admission: 06/10/18 Chief Complaint: weakness. not herself The patient is a 67 year old F who was just discharged on being admitted for acute hyponatremia and renal failure. Patient was having diarrhea and did test positive for the Shiga toxin. Patient x-rays is having higher output from her ostomy than normal. The actual output has actually normalized since then but patient states that she has not been eating or drinking as much. Patient states that she has having trouble swallowing and is able to eat some but does have to take some water with that. She denies any abdominal pain. Patient presents with a sodium of 114, creatinine of 2.1 for the baseline of 0.87. Patient's white count was also elevated at 16.2 with a slight left shift. Urinalysis was negative. Patient did have a lipase of greater than 1000 but as mentioned above, patient is not having any abdominal pain. Patient being brought in for further hyponatremia treatment and workup. [] Past Medical History Past Medical History (Chronic Problems): Chronic Problems (Last Updated 06/10/18 @ 14:02 by Willy Steve DO) Chronic obstructive pulmonary disease (Chronic) History of colorectal cancer (Chronic) History of creation of ostomy (Chronic) Tobacco use (Chronic) Hypothyroidism (Chronic) Medical History: Medical History (Last Updated 06/10/18 @ 14:02 by Willy Steve DO) COPD (chronic obstructive pulmonary disease) J44.9 Colon cancer C18.9 Hypothyroidism E03.9 Allergies Penicillins Allergy (Verified 06/10/18 12:00) Other Home Medications: Ambulatory Orders Medication Instructions Recorded Acetaminophen/Codeine #3 [Tylenol 1 tab PO 4X/DAY 06/04/18 #3 Tablet] Citalopram Hydrobromide 20 mg PO DAILY 06/04/18 [Citalopram HBr] Cyanocobalamin [Vitamin B12] 100 mcg IM QWEEK 06/04/18 Levothyroxine [Synthroid] 100 mcg PO DAILY 06/04/18 Surgical History: - - Patient status post total colectomy with ostomy, tonsillectomy. Psychiatric History: Anxiety, Depression ACCOUNTING INTERN History: No pertinent ACCOUNTING INTERN history Smoking Status: Current some day smoker Tobacco Use: Cigarettes Alcohol: None Drugs: None - *Family History Maternal History Items: - - Patient denies any marked paternal or maternal family history including heart disease, diabetes, cancer. Paternal History Items: - - Patient denies any marked paternal or maternal family history including heart disease, diabetes, cancer. Review of Systems Constitutional: Reports: Malaise, Weakness, Fatigue. Denies: Anorexia, Chills, Fever Eyes: Reports: - - glasses. Denies: Blurred vision, Double vision HEENT: Denies: Head Aches, Sinus Congestion, Sinus Drainage Cardiovascular: Denies: Chest Pain, Palpitations Respiratory: Denies: Cough, Shortness of breath at rest, Sputum production Gastrointestinal: Denies: Abdominal Pain, Nausea, Vomiting Genitourinary: Denies: Dysuria Musculoskeletal: Denies: Joint Pain, Joint Tenderness Skin: Denies: Rash, Wounds Neurological: Denies: Numbness, Tingling, Focal weakness Hematologic/ Lymphatic: Denies: Easy Bruising, Easy Bleeding Comment: All review of systems are negative except as mentioned in the history of present illness and the other review of systems. VTE Information - Inpt Only VTE Present on Admission: No VTE Pharm Prophylaxis ordered?: Yes Patient Problems: Active and Suspected Problems (Last Updated 06/10/18 @ 14:02 by Willy Steve DO) Pancreatitis (Acute) - Physical Exam General: Alert, Oriented x3, Cooperative HEENT: Atraumatic, Normocephalic, - - Scleral icterus Oral: Moist Mucosa, No Gingival or Mucosal Lesions/ Ulcerations, - - Mild body stage III. Cannot visualize posterior pharynx. No obvious oral thrush Neck: Negative Hepatojugular Reflux, Thyroid Normal Size and Texture Lungs: Clear to auscultation, Normal air movement Cardiovascular: Regular rate, Regular Rhythm, Normal S1, Normal S2, No murmurs Abdomen: Bowel Sounds Present, Soft, Non Tender, Non-Distended, No Hepato- splenomegaly, - - Right side ostomy Extremities: No edema, Capillary Refill Less than 3 Seconds, No Calf Tenderness Skin: No rashes, No breakdown Musculoskeletal: No Tenderness to Palpation of Joints or Extremities Neurological: Sensory exam intact to light touch and pain, - - No clonus Psych/Mental Status: Normal Affect, Appropriate Vital Signs Temp Pulse Resp BP Pulse Ox 36.6 C 93 17 116/71 97 06/10/18 11:57 06/10/18 13:50 06/10/18 13:50 06/10/18 13:50 06/10/18 13:50 Oxygen Delivery Method Room Air Weight: 58.967 kg Body Mass Index (BMI) 22.3 Laboratory Tests Past 24 Hrs 06/10/18 06/10/18 06/10/18 12:39 12:39 12:51 WBC 16.2 H RBC 5.39 Hgb 17.0 H Hct 45.9 MCV 85.2 MCH 31.5 MCHC 37.0 H RDW 12.1 RDW Differential 37.7 Plt Count 301 MPV 10.0 Immature Gran % (Auto) 0.700 Neut % (Auto) 76.7 H Lymph % (Auto) 13.5 L [place] % (Auto) 8.6 Eos % (Auto) 0.4 Baso % (Auto) 0.1 Absolute Neuts (auto) 12.4 H Absolute Lymphs (auto) 2.18 Total Counted Not Reportable Sodium 114 L* Potassium 3.6 Chloride 84 L Carbon Dioxide 16.0 L Anion Gap 14 BUN 81 H Creatinine 2.14 H Estim Creat Clear Calc 22.63 Est GFR (MDRD) Af Amer 30 L Est GFR (MDRD) Non-Af 25 L BUN/Creatinine Ratio 37.9 H Glucose 200 H Lactic Acid 2.0 Calcium 9.7 Total Bilirubin 0.60 AST 39 H ALT 91 H Alkaline Phosphatase 64 Total Protein 8.6 H Albumin 4.1 Globulin 4.5 H Albumin/Globulin Ratio 0.9 Lipase 1043 H Urine Color Urine Clarity Urine pH Ur Specific [place] Urine Protein Urine Glucose (UA) Urine Ketones Urine Occult Blood Urine Nitrite Urine Bilirubin Urine Urobilinogen Ur Leukocyte Esterase Urine RBC Urine WBC Ur Squamous Epith Cells Urine Bacteria Urine Mucus 06/10/18 13:05 WBC RBC Hgb Hct MCV MCH MCHC RDW RDW Differential Plt Count MPV Immature Gran % (Auto) Neut % (Auto) Lymph % (Auto) [place] % (Auto) Eos % (Auto) Baso % (Auto) Absolute Neuts (auto) Absolute Lymphs (auto) Total Counted Sodium Potassium Chloride Carbon Dioxide Anion Gap BUN Creatinine Estim Creat Clear Calc Est GFR (MDRD) Af Amer Est GFR (MDRD) Non-Af BUN/Creatinine Ratio Glucose Lactic Acid Calcium Total Bilirubin AST ALT Alkaline Phosphatase Total Protein Albumin Globulin Albumin/Globulin Ratio Lipase Urine Color Yellow Urine Clarity Sl. Cloudy Urine pH 5.0 Ur Specific [place] 1.015 Urine Protein 15 H Urine Glucose (UA) Normal Urine Ketones Negative Urine Occult Blood 10 H Urine Nitrite Negative Urine Bilirubin Negative Urine Urobilinogen Normal Ur Leukocyte Esterase 25 H Urine RBC 0-5 SEEN Urine WBC 0-5 SEEN Ur Squamous Epith Cells 0-5 SEEN Urine Bacteria 1+ Urine Mucus 0 SEEN Assessment/Plan All Active Problems (Last Updated 06/10/18 @ 14:02 by Willy Steve DO) COPD with acute exacerbation (Acute) Acute viral syndrome (Acute) Hyponatremia (Acute) AMAURY (acute kidney injury) (Acute) Pancreatitis (Acute) 1. Hyponatremia * Recurrent but not due to high output from her ostomy this time. * Unclear as to the source but could be related with volume depletion versus hypothyroidism versus versus other * Patient will be on IV fluids * Check TSH, Cortrosyn stim test, urine sodium, urine osmolality and serum osmolality * Patient advised that she is going to be admitted prior for the sodium somewhat normalized but understanding that it may not get to the normal range when she is discharged 2. Acute kidney injury * Presumed prerenal * Was normalized when she left * IV fluids * Reevaluate 3. Acute pancreatitis * Based solely on labs as her lipase was greater than 1000 * No prior lipase available * Patient will be on clear diet * IV fluids * Check right upper quadrant ultrasound * Follow-up lab work in the morning 4. Leukocytosis * May be reactive * Patient did have a positive Shiga toxin when she was here last but no active high output at this time * Will monitor * Urinalysis negative 5. DVT prophylaxis with heparin Case discussed with the patient's friend at bedside. Code Visit Inpatient E&M: 27008 Init Hosp L3
[2018-06-10 14:12] VITALS: BMI 21.0
--- NOTE | 2018-06-10 14:31 | US_ITS ---
STUDY: ABDOMINAL ULTRASOUND - RIGHT UPPER QUADRANT REASON FOR VISIT: Female, 67 years old. Pancreatitis. TECHNIQUE: Ultrasound evaluation of the right upper quadrant was performed with real-time and static liriano-scale imaging. TECHNICAL QUALITY: Adequate. COMPARISON: CT abdomen and pelvis January 18, 2010. FINDINGS: Liver: The liver measures 14.9 cm. There is normal echogenicity of the liver. The bile ducts are within normal limits. There is hepatic color flow. The direction of portal flow is hepatopetal. There is no demonstrated mass lesion. Gallbladder: The patient is status post cholecystectomy. Common Bile Duct (C.B.D.): The common bile duct measures 6 mm. Pancreas: Normal size of the visualized head of the pancreas. The body and tail the pancreas were obscured by bowel gas. There is normal echogenicity of the visualized pancreas. There is no demonstrated pancreatic mass or cyst. Right Kidney: Normal size of the right kidney. The right kidney measures 9.3 x 4.2 x 4.2 cm. There is thinning of the renal cortex. The right cortex measures 0.6 cm. There are numerous adjacent fluid-filled structures that likely reflect severe pelvocaliectasis. A number of adjacent parenchymal cyst might also have this appearance. The right ureter is not visualized. US/Abdomen Limited IMPRESSION: 1. The body and tail the pancreas were scattered by bowel gas. The head of the pancreas is unremarkable. 2. Prior cholecystectomy. No sign of bile duct obstruction. 3. Severe right pelvocaliectasis or, less likely, a number of large adjacent renal parenchymal cysts. This is new since 2009. One might consider nuclear medicine renal scan to document right renal function and/or CT urogram to identify a site of possible urinary tract obstruction. Electronically Signed: George Self MD at 16:55 EDT , Service support ,
[2018-06-10 14:38] VITALS: BP 116/59; PULSE 87; RESP 18; TEMP 36.5; O2SAT 99
[2018-06-10 15:07] LABS: Thyroid Stim Hormone (TSH) 4.52 uIU/mL (0.358-3.74)
[2018-06-10 15:21] LABS: Osmolality, Serum 267 mOsm/KG (280-301)
[2018-06-10 17:00] LABS: Reflex Lactate? Y
[2018-06-10] MEDS: Acetaminophen/Codeine #3 Tablet 1 TABLET PO ×2 (17:27→21:29)
[2018-06-10 18:00] LABS: Lactic Acid 0.8 mmol/L (0.4-2.0)
[2018-06-10] MEDS: 0.9% Normal Saline 1,000 ML 150 ML IV (19:25)
[2018-06-10 20:30] VITALS: BP 106/64; PULSE 77; RESP 16; TEMP 36.8; O2SAT 97
[2018-06-10] MEDS: MELATONIN 3 MG TABLET 6 MG PO (21:30)
[2018-06-10] MEDS: Heparin Injection (Vial) 5,000 UNIT/ML VIAL 5000 UNIT SC (21:30)
[2018-06-10] MEDS: Ondansetron 4 MG/2 ML Vial IV (21:40)
[2018-06-10] MEDS: Levothyroxine 100 MCG Tablet PO (21:40)
[2018-06-10] MEDS: Citalopram 20 MG Tablet PO (21:40)
[2018-06-10 23:38] LABS: Urine Sodium 6 mmol/L (Not Establ.)
[2018-06-10 23:43] LABS: Osmolality, Urine 589 mOsm/KG
[2018-06-11] MEDS: 0.9% Normal Saline 1,000 ML 150 ML IV (02:23)
[2018-06-11 02:30] VITALS: BP 106/67; PULSE 78; RESP 16; TEMP 36.7; O2SAT 97
[2018-06-11] MEDS: Cosyntropin 0.25 MG Vial IV (06:00)
[2018-06-11 06:51] LABS: Absolute Lymphocyte Count 1.36 X10^3/ul (0.83-4.51); Absolute Neutrophil Count 9.6 X10^3/uL (2.0-7.7); Basophil# 0.02 X10^3/uL; Basophil% 0.2 % (0-1); Eosinophil# 0.12 X10^3/uL; Hematocrit 40.9 % (37-47); Hemoglobin 14.9 g/dl (12.0-15.0); Lymphocyte # 1.36 X10^3/ul (4.0); Lymphocyte % 10.8 % (19-41); Mean Corp Hgb Conc 36.4 g/gl (32-36); Mean Corpuscular Hgb 31.8 pg (27.0-32.0); Mean Corpuscular Volume 87.4 fL (81-99); Mean Platelet Vol. 9.4 fl (6.2-12.0); Monocyte# 1.38 X10^3/uL; Neutrophil # 9.57 X10^3/uL (2.7-7.7); Neutrophil % 76.3 % (47-70); Platelet Count 273 K/mm3 (150-450); RBC Distribution Width CV 12.3 % (11.6-14.6); RBC Distribution Width SD 39.1 fl (35.1-43.9); Red Blood Count 4.68 M/mm3 (4.2-5.4); White Blood Count 12.5 K/mm3 (4.4-11.0)
[2018-06-11 06:55] LABS: POSITIVE COUNT NO; POSITIVE DIFFERENTIAL NO; POSITIVE MORPHOLOGY NO
[2018-06-11 07:21] LABS: AST(SGOT) 38 U/L (15-37); Alanine Aminotransfer ALT/SGPT 71 U/L (13-56); Albumin, Serum 3.4 g/dL (3.2-5.0); Alkaline Phosphatase 50 U/L (45-117); Anion Gap 10 (5-15); BUN 45 mg/dL (7-18); BUN/Creat Ratio 44.6 RATIO (10-20); Bilirubin, Direct 0.15 mg/dL (0.00-0.30); Calcium,Total 7.8 mg/dL (8.5-10.1); Chloride 98 mmol/L (98-107); Creatinine, Serum 1.01 mg/dL (0.55-1.02); EST Glomerular Filtration Rate 58 mL/min (>60); Est Glom Filt Rate - Afr Amer 71 mL/min (>60); Estimated Creatinine Clearance 47.95 ml/min; Globulin 2.9 g/dL (2.2-4.2); Glucose 102 mg/dL (74-106); Lipase 1208 U/L (73-393); Potassium 3.4 mmol/L (3.5-5.1); Protein, Total 6.3 g/dL (6.4-8.2); Sodium Level 126 mmol/L (136-145)
--- NOTE | 2018-06-11 09:23 | PCM.PN.HOSP ---
Patient Problems: Active and Suspected Problems (Last Updated 06/10/18 @ 14:02 by Willy Steve DO) Pancreatitis (Acute) Subjective: Patient with no acute events overnight per self and per nursing report. She states she does feel improved since initial presentation however she states that since her recent admission with E. coli Shiga gastroenteritis she has had issues with swallowing therefore speech therapy requested and pending upon evaluation. She does state feeling less weak than initial presentation but since recent admission has continued to feel weak with poor intake. She states that her ostomy output has been stable and not increased as it was prior. Patient denies fevers, chills, nausea, emesis, abdominal pain, chest pain or dyspnea. Objective: Physical Examination: General: awake, alert, oriented x 3 and cooperative, seated upright in bed in no apparent distress. Skin: normal color, turgor, no icterus, cyanosis. HEENT: AT/NC, EOMI, PERRLA, improved MMM. Lungs: CTA bilaterally, moderate effort, mild decrease BL bases, no rales, ronchi or wheezing. Heart: Regular rate and rhythm; no gallop, rub audible. Abdomen: soft, ostomy RLQ in place, NTTP, ND, mildly hyperactive BS. Extremities: no cyanosis, clubbing, or edema. Neurological: patient awake, alert, oriented x 3; cognitive function intact; pupils equally reactive to light and accomodation; cranial nerves II-XII grossly normal, moving all 4 extremities, no focal deficits, strength improved, moderately globally decreased. Psychiatric: affect appears fatigued, no acute evidence of depressive or anxiety feelings. Vitals/I&O's: Vital Signs Temp Pulse Resp BP Pulse Ox 98.1 F 78 16 106/67 97 06/11/18 02:30 06/11/18 02:30 06/11/18 02:30 06/11/18 02:30 06/11/18 02:30 Oxygen Delivery Method Room Air Weight: 124 lb 6.404 oz Body Mass Index (BMI) 21.0 Intake and Output for Last 24 Hours 06/09/18 06/10/18 06/11/18 23:59 23:59 23:59 Intake Total 2211 Balance 2211 Laboratory Results 06/10/18 12:39: WBC 16.2 H, RBC 5.39, Hgb 17.0 H, Hct 45.9, MCV 85.2, MCH 31.5, MCHC 37.0 H, RDW 12.1, RDW Differential 37.7, Plt Count 301, MPV 10.0, Immature Gran % (Auto) 0.700, Neut % (Auto) 76.7 H, Lymph % (Auto) 13.5 L, [place] % (Auto) 8.6, Eos % (Auto) 0.4, Baso % (Auto) 0.1, Absolute Neuts (auto) 12.4 H, Absolute Lymphs (auto) 2.18, Total Counted Not Reportable 06/10/18 12:39: Sodium 114 L*, Potassium 3.6, Chloride 84 L, Carbon Dioxide 16.0 L, Anion Gap 14, BUN 81 H, Creatinine 2.14 H, Estim Creat Clear Calc 22.63, Est GFR (MDRD) Af Amer 30 L, Est GFR (MDRD) Non-Af 25 L, BUN/Creatinine Ratio 37.9 H, Glucose 200 H, Calcium 9.7, Total Bilirubin 0.60, AST 39 H, ALT 91 H, Alkaline Phosphatase 64, Total Protein 8.6 H, Albumin 4.1, Globulin 4.5 H, Albumin/Globulin Ratio 0.9, Lipase 1043 H 06/10/18 12:39: TSH 4.52 H 06/10/18 12:51: Lactic Acid 2.0 06/10/18 13:05: Urine Color Yellow, Urine Clarity Sl. Cloudy, Urine pH 5.0, Ur Specific [place] 1.015, Urine Protein 15 H, Urine Glucose (UA) Normal, Urine Ketones Negative, Urine Occult Blood 10 H, Urine Nitrite Negative, Urine Bilirubin Negative, Urine Urobilinogen Normal, Ur Leukocyte Esterase 25 H, Urine RBC 0-5 SEEN, Urine WBC 0-5 SEEN, Ur Squamous Epith Cells 0-5 SEEN, Urine Bacteria 1+, Urine Mucus 0 SEEN 06/10/18 15:01: Serum Osmolality 267 L 06/10/18 17:19: Lactic Acid 0.8 06/10/18 23:25: Urine Osmolality 589 06/10/18 23:25: Ur Random Sodium 6 06/11/18 05:54: Cortisol 28.40 H 06/11/18 06:34: WBC 12.5 H, RBC 4.68, Hgb 14.9, Hct 40.9, MCV 87.4, MCH 31.8, MCHC 36.4 H, RDW 12.3, RDW Differential 39.1, Plt Count 273, MPV 9.4, Immature Gran % (Auto) 0.700, Neut % (Auto) 76.3 H, Lymph % (Auto) 10.8 L, [place] % (Auto) 11.0 H, Eos % (Auto) 1.0, Baso % (Auto) 0.2, Absolute Neuts (auto) 9.6 H, Absolute Lymphs (auto) 1.36, Total Counted Not Reportable 06/11/18 06:34: Sodium 126 L, Potassium 3.4 L, Chloride 98, Carbon Dioxide 18.0 L, Anion Gap 10, BUN 45 H, Creatinine 1.01, Estim Creat Clear Calc 47.95, Est GFR (MDRD) Af Amer 71, Est GFR (MDRD) Non-Af 58 L, BUN/Creatinine Ratio 44.6 H, Glucose 102, Calcium 7.8 L, Total Bilirubin 0.60, Direct Bilirubin 0.15, AST 38 H, ALT 71 H, Alkaline Phosphatase 50, Total Protein 6.3 L, Albumin 3.4, Globulin 2.9, Lipase 1208 H 06/11/18 06:34: Cortisol 51.50 H 06/11/18 07:02: Cortisol 59.90 H Current Medications Acetaminophen (Tylenol) 650 mg PO Q6H PRN PRN PRN Reason: Mild Pain (1-3)/Temp > 100.7 F Acetaminophen/Codeine Phosphate (Tylenol#3) 1 tablet PO 4X/DAY [facility] Last Admin: 06/10/18 21:29 Dose: 1 tablet Citalopram Hydrobromide (Celexa) 20 mg PO DAILY [facility] Last Admin: 06/10/18 21:40 Dose: 20 mg Cyanocobalamin (Vitamin B12) 100 mcg IM QWEEK [facility] Heparin Sodium (Porcine) (Heparin Na) 5,000 unit SC Q12 [facility] Last Admin: 06/10/18 21:30 Dose: 5,000 unit Levothyroxine Sodium (Synthroid) 100 mcg PO DAILY@0600 [facility] Last Admin: 06/10/18 21:40 Dose: 100 mcg Magnesium Hydroxide (Milk Of Magnesia) 30 ml PO DAILY PRN PRN PRN Reason: Constipation Ondansetron HCl (Zofran) 4 mg IV Q8H PRN PRN PRN Reason: NAUSEA Last Admin: 06/10/18 21:40 Dose: 4 mg Sodium Chloride () 5 - 30 ml IV UD PRN PRN Reason: SALINE FLUSH Medical Necessity - Tobacco Use Smoking Status: Current some day smoker Tobacco Use: Cigarettes Assessment/Plan All Active Problems (Last Updated 06/10/18 @ 14:02 by Willy Steve DO) COPD with acute exacerbation (Acute) Acute viral syndrome (Acute) Hyponatremia (Acute) AMAURY (acute kidney injury) (Acute) Pancreatitis (Acute) The patient is a 67 y/o F w/ PMHx: Chronic COPD, Tobacco use, History of Colorectal Cancer s/p colectomy w/ ostomy, Hypothyroidism who presents to the [facility] ED on 06/04/18 with history of 4-5-day history of dyspnea, cough with mild sputum production, congestion, nausea as well as occasional dry heaving, abdominal cramps and poor intake with increased ostomy output progressively worsening especially over the last 24 hours. (1) Acute Recurrent Severe Hyponatremia, ? Hypovolemic w/ Recurrent AMAURY: Admission Na 114, similar to recent presentation but corrected upon recent discharge following treatment for #1, admission BUN/Cr 81/2.14, hydrated, nephrotoxic regimen held, repeat 06/11/18 BUN/Cr 45/1.01, Na 126, patient is on citalopram and given recurrent hyponatremia with patient reported appropriate intake and normalized ostomy output, may need to be held but again recurrent poor intake. Continue to gently hydrate, trend BMP. PT, OT, CM Consultation for discharge planning. TSH 4.52, free T4 pending, Cortisol initial 28.40 (normal level prior), repeat 51.50 and 59.90 (does not appear to have glucocorticoid deficiency given response and initial), S [id number], U Osm 589 (limited usage), U Na 6 (? renal losses), abdominal US w/ until pancreas scattered by bowel gas, head of pancreas unremarkable, prior cholecystectomy, no sign of bile duct obstruction, severe right pelvocaliectasis or less likely a number of large addition renal parenchymal cyst new since 2009. Given atypical findings, Nephrology consulted as recurrent severe AMAURY and hyponatremia. Given US findings may also need to consider Urology input. (2) Elevated Lipase c/w Acute Pancreatitis: Asymptomatic. Unclear specific etiology, recent malaise, fatigue, admission lipase 1043, repeat 1208 following overnight hydration. Abdominal US w/ until pancreas scattered by bowel gas, head of pancreas unremarkable, prior cholecystectomy, no sign of bile duct obstruction, severe right pelvocaliectasis or less likely a number of large addition renal parenchymal cyst new since 2009. Clears w/ transition pending abdominal complaints and lipase. (3) Recent N/V/Increased ostomy output secondary to E. Coli Induced Gastroenteritis: Recent admission w/ AMAURY, increased ostomy output w/ + shiga toxin on evaluation. She notes currently improved, appropriate ostomy output since discharge. Per Nephrology they noted intention for repeat stool function studies. (4) Chronic COPD: Recent acute exacerbation treatment, continue ATC duonebs, PRN albuterol, HOB, IS parameters. (5) Tobacco Abuse: Encouraged cessation, inpatient consultation per RT, NR if desired. (6) Anxiety and Depression: Given presentation, likely acute hypovolemic hyponatremia as noted, Nephrology consulted given recurrence #1, will continue patient SSRI but again may need to discontinue. (7) Hypothyroidism: Continue home synthroid regimen, TSH mildly elevated, FT4 pending. (8) History of Colorectal Cancer: s/p colectomy w/ ostomy, closely monitor ostomy output, head of commission department consultation. (9) Hypokalemia: Admission K+ 3.4, supplementation given, repeat level in AM. (10) DVT Prophylaxis: SCDs, heparin. Code Visit Inpatient E&M: 09769 Subs Hosp L3
--- NOTE | 2018-06-11 09:28 | PN_ITS ---
Patient Problems: Active and Suspected Problems (Last Updated 06/10/18 @ 14:02 by Willy Steve DO) Pancreatitis (Acute) Subjective: Patient with no acute events overnight per self and per nursing report. She states she does feel improved since initial presentation however she states that since her recent admission with E. coli Shiga gastroenteritis she has had issues with swallowing therefore speech therapy requested and pending upon evaluation. She does state feeling less weak than initial presentation but since recent ad mission has continued to feel weak with poor intake. She states that her ostomy output has been stable and not increased as it was prior. Patient denies fevers, chills, nausea, emesis, abdominal pain, chest pain or dyspnea. Objective: Physical Examination: General: awake, alert, oriented x 3 and cooperative, seated upright in bed in no apparent distress. Skin: normal color, turgor, no icterus, cyanosis. HEENT: AT/NC, EOMI, PERRLA, improved MMM. Lungs: CTA bilaterally, moderate effort, mild decrease BL bases, no rales, ronchi or wheezing. Heart: Regular rate and rhythm; no gallop, rub audible. Abdomen: soft, ostomy RLQ in place, NTTP, ND, mildly hyperactive BS. Extremities: no cyanosis, clubbing, or edema. Neurological: patient awake, alert, oriented x 3; cognitive function intact; pupils equally reactive to light and accomodation; cranial nerves II-XII grossly normal, moving all 4 extremities, no focal deficits, strength improved, moderately globally decreased. Psychiatric: affect appears fatigued, no acute evidence of depressive or anxiety feelings. Vitals/I&O's: Vital Signs Temp Pulse Resp BP Pulse Ox 98.1 F 78 16 106/67 97 06/11/18 02:30 06/11/18 02:30 06/11/18 02:30 06/11/18 02:30 06/11/18 02:30 Oxygen Delivery Method Room Air Weight: 124 lb 6.404 oz Body Mass Index (BMI) 21.0 Intake and Output for Last 24 Hours 06/09/18 06/10/18 06/11/18 23:59 23:59 23:59 Intake Total 2211 Balance 2211 Laboratory Results 06/10/18 12:39: WBC 16.2 H, RBC 5.39, Hgb 17.0 H, Hct 45.9, MCV 85.2, MCH 31.5, MCHC 37.0 H, RDW 12.1, RDW Differential 37.7, Plt Count 301, MPV 10.0, Immature Gran % (Auto) 0.700, Neut % (Auto) 76.7 H, Lymph % (Auto) 13.5 L, [place] % (Auto) 8.6, Eos % (Auto) 0.4, Baso % (Auto) 0.1, Absolute Neuts (auto) 12.4 H, Absolute Lymphs (auto) 2.18, Total Counted Not Reportable 06/10/18 12:39: Sodium 114 L*, Potassium 3.6, Chloride 84 L, Carbon Dioxide 16.0 L, Anion Gap 14, BUN 81 H, Creatinine 2.14 H, Estim Creat Clear Calc 22.63, Est GFR (MDRD) Af Amer 30 L, Est GFR (MDRD) Non-Af 25 L, BUN/Creatinine Ratio 37.9 H , Glucose 200 H, Calcium 9.7, Total Bilirubin 0.60, AST 39 H, ALT 91 H, Alkaline Phosphatase 64, Total Protein 8.6 H, Albumin 4.1, Globulin 4.5 H, Albumin/Globulin Ratio 0.9, Lipase 1043 H 06/10/18 12:39: TSH 4.52 H 06/10/18 12:51: Lactic Acid 2.0 06/10/18 13:05: Urine Color Yellow, Urine Clarity Sl. Cloudy, Urine pH 5.0, Ur Specific [place] 1.015, Urine Protein 15 H, Urine Glucose (UA) Normal, Urine Ketones Negative, Urine Occult Blood 10 H, Urine Nitrite Negative, Urine Bilirubin Negative, Urine Urobilinogen Normal, Ur Leukocyte Esterase 25 H, Urine RBC 0-5 SEEN, Urine WBC 0-5 SEEN, Ur Squamous Epith Cells 0-5 SEEN, Urine Bacteria 1+, Urine Mucus 0 SEEN 06/10/18 15:01: Serum Osmolality 267 L 06/10/18 17:19: Lactic Acid 0.8 06/10/18 23:25: Urine Osmolality 589 06/10/18 23:25: Ur Random Sodium 6 06/11/18 05:54: Cortisol 28.40 H 06/11/18 06:34: WBC 12.5 H, RBC 4.68, Hgb 14.9, Hct 40.9, MCV 87.4, MCH 31.8, MCHC 36.4 H, RDW 12.3, RDW Differential 39.1, Plt Count 273, MPV 9.4, Immature Gran % (Auto) 0.700, Neut % (Auto) 76.3 H, Lymph % (Auto) 10.8 L, [place] % (Auto) 11.0 H, Eos % (Auto) 1.0, Baso % (Auto) 0.2, Absolute Neuts (auto) 9.6 H, Absolute Lymphs (auto) 1.36, Total Counted Not Reportable 06/11/18 06:34: Sodium 126 L, Potassium 3.4 L, Chloride 98, Carbon Dioxide 18.0 L, Anion Gap 10, BUN 45 H, Creatinine 1.01, Estim Creat Clear Calc 47.95, Est GFR (MDRD) Af Amer 71, Est GFR (MDRD) Non-Af 58 L, BUN/Creatinine Ratio 44.6 H, Glucose 102, Calcium 7.8 L, Total Bilirubin 0.60, Direct Bilirubin 0.15, AST 38 H, ALT 71 H, Alkaline Phosphatase 50, Total Protein 6.3 L, Albumin 3.4, Globulin 2.9, Lipase 1208 H 06/11/18 06:34: Cortisol 51.50 H 06/11/18 07:02: Cortisol 59.90 H Current Medications Acetaminophen (Tylenol) 650 mg PO Q6H PRN PRN PRN Reason: Mild Pain (1-3)/Temp > 100.7 F Acetaminophen/Codeine Phosphate (Tylenol#3) 1 tablet PO 4X/DAY [facility] Last Admin: 06/10/18 21:29 Dose: 1 tablet Citalopram Hydrobromide (Celexa) 20 mg PO DAILY [facility] Last Admin: 06/10/18 21:40 Dose: 20 mg Cyanocobalamin (Vitamin B12) 100 mcg IM QWEEK [facility] Heparin Sodium (Porcine) (Heparin Na) 5,000 unit SC Q12 [facility] Last Admin: 06/10/18 21:30 Dose: 5,000 unit Levothyroxine Sodium (Synthroid) 100 mcg PO DAILY@0600 [facility] Last Admin: 06/10/18 21:40 Dose: 100 mcg Magnesium Hydroxide (Milk Of Magnesia) 30 ml PO DAILY PRN PRN PRN Reason: Constipation Ondansetron HCl (Zofran) 4 mg IV Q8H PRN PRN PRN Reason: NAUSEA Last Admin: 06/10/18 21:40 Dose: 4 mg Sodium Chloride () 5 - 30 ml IV UD PRN PRN Reason: SALINE FLUSH Medical Necessity - Tobacco Use Smoking Status: Current some day smoker Tobacco Use: Cigarettes Assessment/Plan All Active Problems (Last Updated 06/10/18 @ 14:02 by Willy Steve DO) COPD with acute exacerbation (Acute) Acute viral syndrome (Acute) Hyponatremia (Acute) AMAURY (acute kidney injury) (Acute) Pancreatitis (Acute) The patient is a 67 y/o F w/ PMHx: Chronic COPD, Tobacco use, History of Colorectal Cancer s/p colectomy w/ ostomy, Hypothyroidism who presents to the [facility] ED on 06/04/18 with history of 4-5-day history of dyspnea, cough with mild sputum production, congestion, nausea as well as occasional dry heaving, abdominal cramps and poor intake with increased ostomy output progressively worsening especially over the last 24 hours. (1) Acute Recurrent Severe Hyponatremia, ? Hypovolemic w/ Recurrent AMAURY: Admission Na 114, similar to recent presentation but corrected upon recent discharge following treatment for #1, admission BUN/Cr 81/2.14, hydrated, nephrotoxic regimen held, repeat 06/11/18 BUN/Cr 45/1.01, Na 126, patient is on citalopram and given recurrent hyponatremia with patient reported appropriate intake and normalized ostomy output, may need to be held but again recurrent poor intake. Continue to gently hydrate, trend BMP. PT, OT, CM Consultation for discharge planning. TSH 4.52, free T4 pending, Cortisol initial 28.40 (normal level prior), repeat 51.50 and 59.90 (does not appear to have glucocorticoid deficiency given response and initial), S [id number], U Osm 589 (limited usage), U Na 6 (? renal losses), abdominal US w/ until pancreas scattered by bowel gas, head of pancreas unremarkable, prior cholecystectomy, no sign of bile duct obstruction, severe right pelvocaliectasis or less likely a number of large addition renal parenchymal cyst new since 2009. Given atypical findings, Nephrology consulted as recurrent severe AMAURY and hyponatremia. Given US findings may also need to consider Urology input. (2) Elevated Lipase c/w Acute Pancreatitis: Asymptomatic. Unclear specific etiology, recent malaise, fatigue, admission lipase 1043, repeat 1208 following overnight hydration. Abdominal US w/ until pancreas scattered by bowel gas, head of pancreas unremarkable, prior cholecystectomy, no sign of bile duct obstruction, severe right pelvocaliectasis or less likely a number of large addition renal parenchymal cyst new since 2009. Clears w/ transition pending abdominal complaints and lipase. (3) Recent N/V/Increased ostomy output secondary to E. Coli Induced Gastroenteritis: Recent admission w/ AMAURY, increased ostomy output w/ + shiga toxin on evaluation. She notes currently improved, appropriate ostomy output since discharge. Per Nephrology they noted intention for repeat stool function studies. (4) Chronic COPD: Recent acute exacerbation treatment, continue ATC duonebs, PRN albuterol, HOB, IS parameters. (5) Tobacco Abuse: Encouraged cessation, inpatient consultation per RT, NR if desired. (6) Anxiety and Depression: Given presentation, likely acute hypovolemic hyponatremia as noted, Nephrology consulted given recurrence #1, will continue patient SSRI but again may need to discontinue. (7) Hypothyroidism: Continue home synthroid regimen, TSH mildly elevated, FT4 pending. (8) History of Colorectal Cancer: s/p colectomy w/ ostomy, closely monitor ostomy output, technical lead consultation. (9) Hypokalemia: Admission K+ 3.4, supplementation given, repeat level in AM. (10) DVT Prophylaxis: SCDs, heparin. Code Visit Inpatient E&M: 49144 Subs Hosp L3
[2018-06-11 10:07] LABS: Magnesium 2.4 mg/dL (1.6-2.6); T4 Free Direct 1.25 ng/dL (0.76-1.46)
--- NOTE | 2018-06-11 10:22 | NURSING ---
was asked to see patient for some redness just inferior to patient's ostomy appliance. in to talk with patient. patient states that she had some stool leakage prior to admission and the redness was from the stool sitting on the skin. the area of redness is dry. pt states it appears to be healing. patient thought about applying a lotion to this area. discussed with patient that this may loosen the appliance at the inferior edge from the moisture. patient agreed to just monitor the redness and keep dry at this time. appears to be healing well. pt denies any further needs at this time.
[2018-06-11 10:43] VITALS: BP 104/66; PULSE 85; RESP 18; TEMP 36.3; O2SAT 98
[2018-06-11] MEDS: Acetaminophen/Codeine #3 Tablet 1 TABLET PO ×4 (10:45→21:11)
[2018-06-11] MEDS: Heparin Injection (Vial) 5,000 UNIT/ML VIAL 5000 UNIT SC ×2 (10:46→21:12)
--- NOTE | 2018-06-11 11:25 | CASEMGMT ---
RN CM Assessment Link. PCP: Dr. Polanco Pharmacy: [facility]. Prescription benefit: yes DME: Pt has colostomy, received supplies through [facility]. per Josette, wound nurse, pt can have [facility] transfer prescription for ostomy supplies to [facility] DME. Pt has number, explained to pt and she will contact [facility], or if needed, her PCP to establish with [facility] for DME supplies. Intro role of CM to patient in room. Pt states she is independent, drives, cares for own colostomy and independent in all ADL's.No dc needs identified. DC Plan: Home, no needs identified.
--- NOTE | 2018-06-11 14:01 | PCM.CONS.R ---
Consultation - Renal 06/11/18 PCP/ Referring MD: Requesting physician: [] Primary care physician: Daphne Polanco Reason for Consultation:: hyponatremia - History of Present Illness History of Present Illness: The patient is a 67 year old F who was recently hospitalized for hyponatremia and diarrhea with Shigella readmitted for acute renal failure and hyponatremia. Her sodium level was low at 114 on admission improved to 126 with normal saline. She had a cortisol stim test that was unremarkable. Creatinine improved from 2.14 to 1.01. Her white blood cell count was 16 improved to 12.5. Urine sodium was low at 6 with urine osmolarity of 589. Sodium during last hospitalization was 113 improved to 128 on June 05 prior to discharge. She has a history of high ostomy output s/p colostomy with resection for colorectal cancer in 1997. Her ostomy output is usually liquid, denied bloody stools or abdominal pain. She denied fever or chills. Her oral intake has decreased. Patient had trouble swallowing, no history of esophagea strictures. She denies abdominal pain, nausea, or vomiting. She did have nausea prior to admit. She denied eating out at a restaurant recently. Denied purchasing produce. She did go on a bus ride around [place]. - Allergies Allergies: Allergies Penicillins Allergy (Verified 06/10/18 12:00) Other - Current Medications Current Medications: Current Medications Acetaminophen (Tylenol) 650 mg PO Q6H PRN PRN PRN Reason: Mild Pain (1-3)/Temp > 100.7 F Acetaminophen/Codeine Phosphate (Tylenol#3) 1 tablet PO 4X/DAY [facility] Last Admin: 06/11/18 10:45 Dose: 1 tablet Citalopram Hydrobromide (Celexa) 20 mg PO DAILY [facility] Last Admin: 06/10/18 21:40 Dose: 20 mg Cyanocobalamin (Vitamin B12) 100 mcg IM QWEEK [facility] Heparin Sodium (Porcine) (Heparin Na) 5,000 unit SC Q12 [facility] Last Admin: 06/11/18 10:46 Dose: 5,000 unit Sodium Chloride () 1,000 mls @ 75 mls/hr IV .[id number] [facility] Levothyroxine Sodium (Synthroid) 100 mcg PO DAILY@0600 [facility] Last Admin: 06/10/18 21:40 Dose: 100 mcg Magnesium Hydroxide (Milk Of Magnesia) 30 ml PO DAILY PRN PRN PRN Reason: Constipation Ondansetron HCl (Zofran) 4 mg IV Q8H PRN PRN PRN Reason: NAUSEA Last Admin: 06/10/18 21:40 Dose: 4 mg Sodium Chloride () 5 - 30 ml IV UD PRN PRN Reason: SALINE FLUSH - Past Medical History Past Medical History (Chronic Problems): Chronic Problems (Last Updated 06/10/18 @ 14:02 by Willy Steve DO) Chronic obstructive pulmonary disease (Chronic) History of colorectal cancer (Chronic) History of creation of ostomy (Chronic) Tobacco use (Chronic) Hypothyroidism (Chronic) - Past Surgical History Surgical History: - - Patient status post total colectomy with ostomy, tonsillectomy. - Social History Smoking Status: Current some day smoker Alcohol: None Drugs: None - Family History Maternal History Items: - - Patient denies any marked paternal or maternal family history including heart disease, diabetes, cancer. Paternal History Items: - - Patient denies any marked paternal or maternal family history including heart disease, diabetes, cancer. Review of Systems Constitutional: Denies: Anorexia, Chills, Fever, Weakness, Fatigue HEENT: Denies: Head Aches Cardiovascular: Denies: Chest Pain, Edema, Syncope Respiratory: Denies: Cough, Shortness of Breath Gastrointestinal: Reports: Nausea, - - loose stools from ostomy. Denies: Abdominal Pain, Constipation, Hematemesis, Hematochezia, Vomiting Genitourinary: Denies: Dysuria, Frequency Musculoskeletal: Denies: Joint Tenderness, Muscle pain Skin: Denies: Rash Neurological: Denies: Balance problems, Tremor, Seizures Psychiatric: Denies: Anxiety, Depression Hematologic/ Lymphatic: Denies: Anemia Patient Problems: Active and Suspected Problems (Last Updated 06/10/18 @ 14:02 by Willy Steve DO) Pancreatitis (Acute) Shiga toxin-producing Escherichia coli infection (Acute) - Physical Exam General: Alert, Oriented x3, Cooperative HEENT: PERRLA, EOMI Neck: Supple Lungs: Clear to auscultation Cardiovascular: Regular rate Abdomen: Bowel Sounds Present, Soft, Non Tender, Non-Distended, - - colostomy with liquid stools Extremities: No edema Skin: No rashes Musculoskeletal: No Muscle Wasting Neurological: Cranial nerves II-XII grossly intact Psych/Mental Status: Normal Affect, Appropriate, Alert and oriented to time, place, person, mood and affect Vital Signs Temp Pulse Resp BP Pulse Ox 97.3 F L 85 18 104/66 98 06/11/18 10:43 06/11/18 10:43 06/11/18 10:43 06/11/18 10:43 06/11/18 10:43 Oxygen Delivery Method Room Air Weight: 56.427 kg Body Mass Index (BMI) 21.0 Intake and Output for Last 24 Hours 06/09/18 06/10/18 06/11/18 23:59 23:59 23:59 Intake Total 2211 Balance 2211 Laboratory Tests Past 24 Hrs 06/10/18 06/10/18 06/10/18 12:39 15:01 17:19 WBC RBC Hgb Hct MCV MCH MCHC RDW RDW Differential Plt Count MPV Immature Gran % (Auto) Neut % (Auto) Lymph % (Auto) [place] % (Auto) Eos % (Auto) Baso % (Auto) Absolute Neuts (auto) Absolute Lymphs (auto) Total Counted Sodium Potassium Chloride Carbon Dioxide Anion Gap BUN Creatinine Estim Creat Clear Calc Est GFR (MDRD) Af Amer Est GFR (MDRD) Non-Af BUN/Creatinine Ratio Glucose Serum Osmolality 267 L Lactic Acid 0.8 Calcium Magnesium Total Bilirubin Direct Bilirubin AST ALT Alkaline Phosphatase Total Protein Albumin Globulin Lipase TSH 4.52 H Free T4 Cortisol Urine Osmolality Ur Random Sodium 06/10/18 06/10/18 06/11/18 23:25 23:25 05:54 WBC RBC Hgb Hct MCV MCH MCHC RDW RDW Differential Plt Count MPV Immature Gran % (Auto) Neut % (Auto) Lymph % (Auto) [place] % (Auto) Eos % (Auto) Baso % (Auto) Absolute Neuts (auto) Absolute Lymphs (auto) Total Counted Sodium Potassium Chloride Carbon Dioxide Anion Gap BUN Creatinine Estim Creat Clear Calc Est GFR (MDRD) Af Amer Est GFR (MDRD) Non-Af BUN/Creatinine Ratio Glucose Serum Osmolality Lactic Acid Calcium Magnesium Total Bilirubin Direct Bilirubin AST ALT Alkaline Phosphatase Total Protein Albumin Globulin Lipase TSH Free T4 Cortisol 28.40 H Urine Osmolality 589 Ur Random Sodium 6 06/11/18 06/11/18 06/11/18 06:34 06:34 06:34 WBC 12.5 H RBC 4.68 Hgb 14.9 Hct 40.9 MCV 87.4 MCH 31.8 MCHC 36.4 H RDW 12.3 RDW Differential 39.1 Plt Count 273 MPV 9.4 Immature Gran % (Auto) 0.700 Neut % (Auto) 76.3 H Lymph % (Auto) 10.8 L [place] % (Auto) 11.0 H Eos % (Auto) 1.0 Baso % (Auto) 0.2 Absolute Neuts (auto) 9.6 H Absolute Lymphs (auto) 1.36 Total Counted Not Reportable Sodium 126 L Potassium 3.4 L Chloride 98 Carbon Dioxide 18.0 L Anion Gap 10 BUN 45 H Creatinine 1.01 Estim Creat Clear Calc 47.95 Est GFR (MDRD) Af Amer 71 Est GFR (MDRD) Non-Af 58 L BUN/Creatinine Ratio 44.6 H Glucose 102 Serum Osmolality Lactic Acid Calcium 7.8 L Magnesium Total Bilirubin 0.60 Direct Bilirubin 0.15 AST 38 H ALT 71 H Alkaline Phosphatase 50 Total Protein 6.3 L Albumin 3.4 Globulin 2.9 Lipase 1208 H TSH Free T4 Cortisol 51.50 H Urine Osmolality Ur Random Sodium 06/11/18 06/11/18 06:34 07:02 WBC RBC Hgb Hct MCV MCH MCHC RDW RDW Differential Plt Count MPV Immature Gran % (Auto) Neut % (Auto) Lymph % (Auto) [place] % (Auto) Eos % (Auto) Baso % (Auto) Absolute Neuts (auto) Absolute Lymphs (auto) Total Counted Sodium Potassium Chloride Carbon Dioxide Anion Gap BUN Creatinine Estim Creat Clear Calc Est GFR (MDRD) Af Amer Est GFR (MDRD) Non-Af BUN/Creatinine Ratio Glucose Serum Osmolality Lactic Acid Calcium Magnesium 2.4 Total Bilirubin Direct Bilirubin AST ALT Alkaline Phosphatase Total Protein Albumin Globulin Lipase TSH Free T4 1.25 Cortisol 59.90 H Urine Osmolality Ur Random Sodium Assessment/Plan All Active Problems (Last Updated 06/10/18 @ 14:02 by Willy Steve DO) COPD with acute exacerbation (Acute) Acute viral syndrome (Acute) Hyponatremia (Acute) AMAURY (acute kidney injury) (Acute) Pancreatitis (Acute) Shiga toxin-producing Escherichia coli infection (Acute) 1.AMAURY likely due to dehydration from liquid stools, poor intake. Creatinine improved from 2.14 to 1.01 today. Baseline creatinine 0.87 on 06/06, improved from 2.4 during prior hospitalization 2. Hyponatremia urine sodium 6 likely due to hypovolemia. Encourage salt in diet. Sodium 114 to 126 today with NSS. 3. Shigella diarrhea in May 2018. Recheck stool for shiga toxin 4. Acute pancreatitis continue iv fluids. 5. Hx colorectal cancer s/p ileostomy converted to colostomy. 6. Hypothyroid on supplements
--- NOTE | 2018-06-11 14:06 | CON.PCM_ITS ---
Consultation - Renal 06/11/18 PCP/ Referring MD: Requesting physician: [] Primary care physician: Daphne Polanco Reason for Consultation:: hyponatremia - History of Present Illness History of Present Illness: The patient is a 67 year old F who was recently hospitalized for hyponatremia and diarrhea with Shigella readmitted for acute renal failure and hyponatremia. Her sodium level was low at 114 on admission improved to 126 with normal saline. She had a cortisol stim test that was unremarkable. Creatinine improved from 2.14 to 1.01. Her white blood cell count was 16 improved to 12.5. Urine sodium was low at 6 with urine osmolarity of 589. Sodium during last hospitalization was 113 improved to 128 on June 05 prior to discharge. She has a history of high ostomy output s/p colostomy with resection for colorectal cancer in 1997. Her ostomy output is usually liquid, denied bloody stools or abdominal pain. She denied fever or chills. Her oral intake has decreased. Patient had trouble swallowing, no history of esophagea strictures. She denies abdominal pain, nausea, or vomiting. She did have nausea prior to admit. She denied eating out at a restaurant recently. Denied purchasing produce. She did go on a bus ride around [place]. - Allergies Allergies: Allergies Penicillins Allergy (Verified 06/10/18 12:00) Other - Current Medications Current Medications: Current Medications Acetaminophen (Tylenol) 650 mg PO Q6H PRN PRN PRN Reason: Mild Pain (1-3)/Temp > 100.7 F Acetaminophen/Codeine Phosphate (Tylenol#3) 1 tablet PO 4X/DAY [facility] Last Admin: 06/11/18 10:45 Dose: 1 tablet Citalopram Hydrobromide (Celexa) 20 mg PO DAILY [facility] Last Admin: 06/10/18 21:40 Dose: 20 mg Cyanocobalamin (Vitamin B12) 100 mcg IM QWEEK [facility] Heparin Sodium (Porcine) (Heparin Na) 5,000 unit SC Q12 [facility] Last Admin: 06/11/18 10:46 Dose: 5,000 unit Sodium Chloride () 1,000 mls @ 75 mls/hr IV .[id number] [facility] Levothyroxine Sodium (Synthroid) 100 mcg PO DAILY@0600 [facility] Last Admin: 06/10/18 21:40 Dose: 100 mcg Magnesium Hydroxide (Milk Of Magnesia) 30 ml PO DAILY PRN PRN PRN Reason: Constipation Ondansetron HCl (Zofran) 4 mg IV Q8H PRN PRN PRN Reason: NAUSEA Last Admin: 06/10/18 21:40 Dose: 4 mg Sodium Chloride () 5 - 30 ml IV UD PRN PRN Reason: SALINE FLUSH - Past Medical History Past Medical History (Chronic Problems): Chronic Problems (Last Updated 06/10/18 @ 14:02 by Willy Steve DO) Chronic obstructive pulmonary disease (Chronic) History of colorectal cancer (Chronic) History of creation of ostomy (Chronic) Tobacco use (Chronic) Hypothyroidism (Chronic) - Past Surgical History Surgical History: - - Patient status post total colectomy with ostomy, tonsillectomy. - Social History Smoking Status: Current some day smoker Alcohol: None Drugs: None - Family History Maternal History Items: - - Patient denies any marked paternal or maternal family history including heart disease, diabetes, cancer. Paternal History Items: - - Patient denies any marked paternal or maternal family history including heart disease, diabetes, cancer. Review of Systems Constitutional: Denies: Anorexia, Chills, Fever, Weakness, Fatigue HEENT: Denies: Head Aches Cardiovascular: Denies: Chest Pain, Edema, Syncope Respiratory: Denies: Cough, Shortness of Breath Gastrointestinal: Reports: Nausea, - - loose stools from ostomy. Denies: Abdominal Pain, Constipation, Hematemesis, Hematochezia, Vomiting Genitourinary: Denies: Dysuria, Frequency Musculoskeletal: Denies: Joint Tenderness, Muscle pain Skin: Denies: Rash Neurological: Denies: Balance problems, Tremor, Seizures Psychiatric: Denies: Anxiety, Depression Hematologic/ Lymphatic: Denies: Anemia Patient Problems: Active and Suspected Problems (Last Updated 06/10/18 @ 14:02 by Willy Steve DO) Pancreatitis (Acute) Shiga toxin-producing Escherichia coli infection (Acute) - Physical Exam General: Alert, Oriented x3, Cooperative HEENT: PERRLA, EOMI Neck: Supple Lungs: Clear to auscultation Cardiovascular: Regular rate Abdomen: Bowel Sounds Present, Soft, Non Tender, Non-Distended, - - colostomy with liquid stools Extremities: No edema Skin: No rashes Musculoskeletal: No Muscle Wasting Neurological: Cranial nerves II-XII grossly intact Psych/Mental Status: Normal Affect, Appropriate, Alert and oriented to time, place, person, mood and affect Vital Signs Temp Pulse Resp BP Pulse Ox 97.3 F L 85 18 104/66 98 06/11/18 10:43 06/11/18 10:43 06/11/18 10:43 06/11/18 10:43 06/11/18 10:43 Oxygen Delivery Method Room Air Weight: 56.427 kg Body Mass Index (BMI) 21.0 Intake and Output for Last 24 Hours 06/09/18 06/10/18 06/11/18 23:59 23:59 23:59 Intake Total 2211 Balance 2211 Laboratory Tests Past 24 Hrs 06/10/18 06/10/18 06/10/18 12:39 15:01 17:19 WBC RBC Hgb Hct MCV MCH MCHC RDW RDW Differential Plt Count MPV Immature Gran % (Auto) Neut % (Auto) Lymph % (Auto) [place] % (Auto) Eos % (Auto) Baso % (Auto) Absolute Neuts (auto) Absolute Lymphs (auto) Total Counted Sodium Potassium Chloride Carbon Dioxide Anion Gap BUN Creatinine Estim Creat Clear Calc Est GFR (MDRD) Af Amer Est GFR (MDRD) Non-Af BUN/Creatinine Ratio Glucose Serum Osmolality 267 L Lactic Acid 0.8 Calcium Magnesium Total Bilirubin Direct Bilirubin AST ALT Alkaline Phosphatase Total Protein Albumin Globulin Lipase TSH 4.52 H Free T4 Cortisol Urine Osmolality Ur Random Sodium 06/10/18 06/10/18 06/11/18 23:25 23:25 05:54 WBC RBC Hgb Hct MCV MCH MCHC RDW RDW Differential Plt Count MPV Immature Gran % (Auto) Neut % (Auto) Lymph % (Auto) [place] % (Auto) Eos % (Auto) Baso % (Auto) Absolute Neuts (auto) Absolute Lymphs (auto) Total Counted Sodium Potassium Chloride Carbon Dioxide Anion Gap BUN Creatinine Estim Creat Clear Calc Est GFR (MDRD) Af Amer Est GFR (MDRD) Non-Af BUN/Creatinine Ratio Glucose Serum Osmolality Lactic Acid Calcium Magnesium Total Bilirubin Direct Bilirubin AST ALT Alkaline Phosphatase Total Protein Albumin Globulin Lipase TSH Free T4 Cortisol 28.40 H Urine Osmolality 589 Ur Random Sodium 6 06/11/18 06/11/18 06/11/18 06:34 06:34 06:34 WBC 12.5 H RBC 4.68 Hgb 14.9 Hct 40.9 MCV 87.4 MCH 31.8 MCHC 36.4 H RDW 12.3 RDW Differential 39.1 Plt Count 273 MPV 9.4 Immature Gran % (Auto) 0.700 Neut % (Auto) 76.3 H Lymph % (Auto) 10.8 L [place] % (Auto) 11.0 H Eos % (Auto) 1.0 Baso % (Auto) 0.2 Absolute Neuts (auto) 9.6 H Absolute Lymphs (auto) 1.36 Total Counted Not Reportable Sodium 126 L Potassium 3.4 L Chloride 98 Carbon Dioxide 18.0 L Anion Gap 10 BUN 45 H Creatinine 1.01 Estim Creat Clear Calc 47.95 Est GFR (MDRD) Af Amer 71 Est GFR (MDRD) Non-Af 58 L BUN/Creatinine Ratio 44.6 H Glucose 102 Serum Osmolality Lactic Acid Calcium 7.8 L Magnesium Total Bilirubin 0.60 Direct Bilirubin 0.15 AST 38 H ALT 71 H Alkaline Phosphatase 50 Total Protein 6.3 L Albumin 3.4 Globulin 2.9 Lipase 1208 H TSH Free T4 Cortisol 51.50 H Urine Osmolality Ur Random Sodium 06/11/18 06/11/18 06:34 07:02 WBC RBC Hgb Hct MCV MCH MCHC RDW RDW Differential Plt Count MPV Immature Gran % (Auto) Neut % (Auto) Lymph % (Auto) [place] % (Auto) Eos % (Auto) Baso % (Auto) Absolute Neuts (auto) Absolute Lymphs (auto) Total Counted Sodium Potassium Chloride Carbon Dioxide Anion Gap BUN Creatinine Estim Creat Clear Calc Est GFR (MDRD) Af Amer Est GFR (MDRD) Non-Af BUN/Creatinine Ratio Glucose Serum Osmolality Lactic Acid Calcium Magnesium 2.4 Total Bilirubin Direct Bilirubin AST ALT Alkaline Phosphatase Total Protein Albumin Globulin Lipase TSH Free T4 1.25 Cortisol 59.90 H Urine Osmolality Ur Random Sodium Assessment/Plan All Active Problems (Last Updated 06/10/18 @ 14:02 by Willy Steve DO) COPD with acute exacerbation (Acute) Acute viral syndrome (Acute) Hyponatremia (Acute) AMAURY (acute kidney injury) (Acute) Pancreatitis (Acute) Shiga toxin-producing Escherichia coli infection (Acute) 1.AMAURY likely due to dehydration from liquid stools, poor intake. Creatinine improved from 2.14 to 1.01 today. Baseline creatinine 0.87 on 06/06, improved from 2.4 during prior hospitalization 2. Hyponatremia urine sodium 6 likely due to hypovolemia. Encourage salt in diet. Sodium 114 to 126 today with NSS. 3. Shigella diarrhea in May 2018. Recheck stool for shiga toxin 4. Acute pancreatitis continue iv fluids. 5. Hx colorectal cancer s/p ileostomy converted to colostomy. 6. Hypothyroid on supplements
[2018-06-11] MEDS: 0.9% Normal Saline 1,000 ML 75 ML IV (15:38)
[2018-06-11] MEDS: Carbamide Peroxide 15 ML Bottle OTIC (16:31)
[2018-06-11 16:33] VITALS: BP 106/64; PULSE 93; RESP 18; TEMP 36.7; O2SAT 96
[2018-06-11] MEDS: Ondansetron 4 MG/2 ML Vial IV (20:58)
[2018-06-11 22:34] VITALS: BP 101/68; PULSE 92; RESP 16; TEMP 36.7; O2SAT 97
[2018-06-12] MEDS: 0.9% Normal Saline 1,000 ML 75 ML IV (03:20)
[2018-06-12 04:30] VITALS: BP 123/60; PULSE 92; RESP 16; TEMP 36.6; O2SAT 97
[2018-06-12] MEDS: Levothyroxine 100 MCG Tablet PO (06:38)
--- NOTE | 2018-06-12 07:45 | PCM.DC ---
- Discharge Diagnoses Current Active Problems: Current Active and Chronic Problems (Last Updated 06/10/18 @ 14:02 by Willy Steve DO) (1) Acute Recurrent Severe Hyponatremia, Suspected Hypovolemic w/ Recurrent AMAURY (2) Elevated Lipase c/w Acute Pancreatitis, Asymptomatic (3) Recent N/V/Increased ostomy output secondary to E. Coli Induced Gastroenteritis (4) Chronic COPD (5) Tobacco Abuse (6) Anxiety and Depression (7) Hypothyroidism (8) History of Colorectal Cancer You will use the following diet at home:: Regular - Per Nephrology, liberal salt usage. Your food should be the consistency of: Regular Your liquids should be the consistency of: Regular/Thin Discharge Activity: Return to Normal Activity May resume sexual activity in: No Restrictions Weight Bearing Status: Weight bearing as tolerated Call your doctor if you observe: Fever of 101 or Higher, Inability to urinate, Inability to have a bowel movement, Shortness of breath, Dizziness, Fainting spells, Chest pain, Uncontrolled pain, - - Recurrent increased ostomy output. Instructions: Discharge Instructions for Hyponatremia, Dehydration, ED Dehydration, What is COPD?, Chronic Lung Disease: Preventing Lung Infections, Why Do You Smoke?, Planning to Quit Smoking Additional Instructions: Please have repeat basic metabolic panel with your primary care physician and have these results also sent to Dr. Ivett Chang. It is important to maintain adequate oral intake and hydration. Allergies/Adverse Reactions: Allergies Penicillins Allergy (Verified 06/10/18 12:00) Other Medications to take at Discharge Acetaminophen/Codeine #3 [Tylenol #3 Tablet] 1 tab PO 4X/DAY 06/04/18 Citalopram Hydrobromide [Citalopram HBr] 20 mg PO QHS 06/04/18 Cyanocobalamin [Vitamin B12] 100 mcg IM QWEEK 06/04/18 Levothyroxine [Synthroid] 100 mcg PO QHS 06/04/18 Albuterol IH (ProAir) [Proair Hfa] 1 - 2 puff INHALATION Q4H PRN PRN #1 inhaler 06/12/18 Fluticasone/Salmeterol [Advair 250-50 Diskus] 1 each IH BID #1 blst.w.dev 06/12/18 The following prescriptions were given: Albuterol IH (ProAir) [Proair Hfa] 1 - 2 puff INHALATION Q4H PRN PRN #1 inhaler PRN Reason: dyspnea, wheezing Fluticasone/Salmeterol [Advair 250-50 Diskus] 1 each IH BID #1 blst.w.dev Primary Care Physician: Daphne Polanco DO [Primary Care Provider] - Please follow up with your Primary Care Physician in: Follow-up within 2-3 days. Test Results: Test results from this visit will be discussed in further detail at your follow-up appointment, if applicable. Please Follow Up With: Ivett Chang DO When: Follow-up within 1 week. Proposed Discharge Date: 06/12/18
--- NOTE | 2018-06-12 07:48 | DCINST_ITS ---
- Discharge Diagnoses Current Active Problems: Current Active and Chronic Problems (Last Updated 06/10/18 @ 14:02 by Willy Steve DO) (1) Acute Recurrent Severe Hyponatremia, Suspected Hypovolemic w/ Recurrent AMAURY (2) Elevated Lipase c/w Acute Pancreatitis, Asymptomatic (3) Recent N/V/Increased ostomy output secondary to E. Coli Induced Gastro enteritis (4) Chronic COPD (5) Tobacco Abuse (6) Anxiety and Depression (7) Hypothyroidism (8) History of Colorectal Cancer You will use the following diet at home:: Regular - Per Nephrology, liberal salt usage. Your food should be the consistency of: Regular Your liquids should be the consistency of: Regular/Thin Discharge Activity: Return to Normal Activity May resume sexual activity in: No Restrictions Weight Bearing Status: Weight bearing as tolerated Call your doctor if you observe: Fever of 101 or Higher, Inability to urinate, Inability to have a bowel movement, Shortness of breath, Dizziness, Fainting spells, Chest pain, Uncontrolled pain, - - Recurrent increased ostomy output. Instructions: Discharge Instructions for Hyponatremia, Dehydration, ED Dehydration, What is COPD?, Chronic Lung Disease: Preventing Lung Infections, Why Do You Smoke?, Planning to Quit Smoking Additional Instructions: Please have repeat basic metabolic panel with your primary care physician and have these results also sent to Dr. Ivett Chang. It is important to maintain adequate oral intake and hydration. Allergies/Adverse Reactions: Allergies Penicillins Allergy (Verified 06/10/18 12:00) Other Medications to take at Discharge Acetaminophen/Codeine #3 [Tylenol #3 Tablet] 1 tab PO 4X/DAY 06/04/18 Citalopram Hydrobromide [Citalopram HBr] 20 mg PO QHS 06/04/18 Cyanocobalamin [Vitamin B12] 100 mcg IM QWEEK 06/04/18 Levothyroxine [Synthroid] 100 mcg PO QHS 06/04/18 Albuterol IH (ProAir) [Proair Hfa] 1 - 2 puff INHALATION Q4H PRN PRN #1 inhaler 06/12/18 Fluticasone/Salmeterol [Advair 250-50 Diskus] 1 each IH BID #1 blst.w.dev 06/12/18 The following prescriptions were given: Albuterol IH (ProAir) [Proair Hfa] 1 - 2 puff INHALATION Q4H PRN PRN #1 inhaler PRN Reason: dyspnea, wheezing Fluticasone/Salmeterol [Advair 250-50 Diskus] 1 each IH BID #1 blst.w.dev Primary Care Physician: Daphne Polanco DO [Primary Care Provider] - Please follow up with your Primary Care Physician in: Follow-up within 2-3 days. Test Results: Test results from this visit will be discussed in further detail at your follow- up appointment, if applicable. Please Follow Up With: Ivett Chang DO When: Follow-up within 1 week. Proposed Discharge Date: 06/12/18
[2018-06-12 08:06] VITALS: BP 104/64; PULSE 86; RESP 16; TEMP 36.6; O2SAT 95
[2018-06-12] MEDS: Acetaminophen/Codeine #3 Tablet 2 TABLET PO ×2 (08:09→21:55)
[2018-06-12 08:16] LABS: Hemoglobin 15.4 g/dl (12.0-15.0); Mean Corpuscular Hgb 31.5 pg (27.0-32.0); Mean Corpuscular Volume 85.9 fL (81-99); Mean Platelet Vol. 9.6 fl (6.2-12.0); Platelet Count 348 K/mm3 (150-450); RBC Distribution Width CV 11.7 % (11.6-14.6); RBC Distribution Width SD 36.7 fl (35.1-43.9); Red Blood Count 4.89 M/mm3 (4.2-5.4); White Blood Count 14.8 K/mm3 (4.4-11.0)
[2018-06-12 08:17] LABS: Anion Gap 11 (5-15); BUN 34 mg/dL (7-18); BUN/Creat Ratio 30.4 RATIO (10-20); Calcium,Total 8.3 mg/dL (8.5-10.1); Chloride 90 mmol/L (98-107); Creatinine, Serum 1.12 mg/dL (0.55-1.02); EST Glomerular Filtration Rate 52 mL/min (>60); Est Glom Filt Rate - Afr Amer 63 mL/min (>60); Estimated Creatinine Clearance 43.24 ml/min; Glucose 106 mg/dL (74-106); Mean Corp Hgb Conc 36.7 g/gl (32-36); Potassium 3.3 mmol/L (3.5-5.1); Scan Indicated on CBC? Y/N NO; Sodium Level 119 mmol/L (136-145)
--- NOTE | 2018-06-12 08:22 | PN_ITS ---
Patient Problems: Active and Suspected Problems (Last Updated 06/10/18 @ 14:02 by Willy Steve DO) Pancreatitis (Acute) Subjective: Patient overnight with no acute events per self and per nursing report. Upon further discussions realized that patient has not been measuring her ostomy output but has been discarding this prior to measurements but does now admit that she thinks she still has high output and upon evaluation this morning definitely consistent with high output. Patient with decreased sodium again which was reviewed and restarted increased normal saline in addition to repeat pending spot urine sodium. Also discussed ID evaluation to see if there is any recommendations they may have given recent sugar gastroenteritis. Patient denies fevers, chills, nausea, emesis, abdominal pain, chest pain or dyspnea. Objective: Physical Examination: General: awake, alert, oriented x 3 and cooperative, seated upright in bed in no apparent distress. Skin: normal color, turgor, no icterus, cyanosis. HEENT: AT/NC, EOMI, PERRLA, improved MMM. Lungs: CTA bilaterally, moderate effort, mild decrease BL bases, no rales, ronchi or wheezing. Heart: Regular rate and rhythm; no gallop, rub audible. Abdomen: soft, ostomy RLQ in place with notable output and recently replaced, NTTP, ND, continued hyperactive BS. Extremities: no cyanosis, clubbing, or edema. Neurological: patient awake, alert, oriented x 3; cognitive function intact; pupils equally reactive to light and accomodation; cranial nerves II-XII grossly normal, moving all 4 extremities, no focal deficits, strength improved, moderately globally decreased. Psychiatric: affect appears fatigued, no acute evidence of depressive or anxiety feelings. Vitals/I&O's: Vital Signs Temp Pulse Resp BP Pulse Ox 97.8 F 86 16 104/64 95 06/12/18 08:06 06/12/18 08:06 06/12/18 08:06 06/12/18 08:06 06/12/18 08:06 Oxygen Delivery Method Room Air Weight: 124 lb 6.404 oz Body Mass Index (BMI) 21.0 Intake and Output for Last 24 Hours 06/10/18 06/11/18 06/12/18 23:59 23:59 23:59 Intake Total 3458 / 3458 874 / 874 Output Total 600 / 600 Balance 3458 / 3458 274 / 274 Laboratory Results 06/11/18 06:34: Magnesium 2.4, Free T4 1.25 06/12/18 07:08: WBC 14.8 H, RBC 4.89, Hgb 15.4 H, Hct 42.0, MCV 85.9, MCH 31.5, MCHC 36.7 H, RDW 11.7, RDW Differential 36.7, Plt Count 348, MPV 9.6 06/12/18 07:08: Sodium 119 L*, Potassium 3.3 L, Chloride 90 L, Carbon Dioxide 18.0 L, Anion Gap 11, BUN 34 H, Creatinine 1.12 H, Estim Creat Clear Calc 43.24, Est GFR (MDRD) Af Amer 63, Est GFR (MDRD) Non-Af 52 L, BUN/Creatinine Ratio 30.4 H, Glucose 106, Calcium 8.3 L Current Medications Acetaminophen (Tylenol) 650 mg PO Q6H PRN PRN PRN Reason: Mild Pain (1-3)/Temp > 100.7 F Acetaminophen/Codeine Phosphate (Tylenol#3) 2 tablet PO BID@0800,1999 [facility] Last Admin: 06/12/18 08:09 Dose: 2 tablet Citalopram Hydrobromide (Celexa) 20 mg PO DAILY [facility] Last Admin: 06/10/18 21:40 Dose: 20 mg Cyanocobalamin (Vitamin B12) 100 mcg IM QWEEK [facility] Heparin Sodium (Porcine) (Heparin Na) 5,000 unit SC Q12 [facility] Last Admin: 06/11/18 21:12 Dose: 5,000 unit Sodium Chloride () 1,000 mls @ 150 mls/hr IV .Q6H40M [facility] Levothyroxine Sodium (Synthroid) 100 mcg PO DAILY@0600 [facility] Last Admin: 06/12/18 06:38 Dose: 100 mcg Magnesium Hydroxide (Milk Of Magnesia) 30 ml PO DAILY PRN PRN PRN Reason: Constipation Ondansetron HCl (Zofran) 4 mg IV Q8H PRN PRN PRN Reason: NAUSEA Last Admin: 06/11/18 20:58 Dose: 4 mg Potassium Chloride (K-Dur) 40 meq PO X1 ONE Stop: 06/12/18 08:22 Sodium Chloride () 5 - 30 ml IV UD PRN PRN Reason: SALINE FLUSH Medical Necessity - Tobacco Use Smoking Status: Current some day smoker Tobacco Use: Cigarettes Assessment/Plan All Active Problems (Last Updated 06/10/18 @ 14:02 by Willy Steve DO) COPD with acute exacerbation (Acute) Acute viral syndrome (Acute) Hyponatremia (Acute) AMAURY (acute kidney injury) (Acute) Pancreatitis (Acute) The patient is a 67 y/o F w/ PMHx: Chronic COPD, Tobacco use, History of Colorectal Cancer s/p colectomy w/ ostomy, Hypothyroidism who presents to the [facility] ED on 06/04/18 with history of 4-5-day history of dyspnea, cough with mild sputum production, congestion, nausea as well as occasional dry heaving, abdominal cramps and poor intake with increased ostomy output progressively worsening especially over the last 24 hours. (1) Acute Recurrent Severe Hyponatremia, Suspect Recurrent Hypovolemic w/ Recurrent AMAURY secondary to High Ostomy Output: Admission Na 114, similar to recent presentation but corrected upon recent discharge following treatment for #1, admission BUN/Cr 81/2.14, hydrated, nephrotoxic regimen held, repeat 06/11/18 BUN/Cr 45/1.01, Na 126, patient is on citalopram and given recurrent hyponatremia with patient reported appropriate intake and normalized ostomy output but upon measurements initially feel likely still ongoing high ostomy output. TSH 4.52, free T4 pending, Cortisol initial 28.40 (normal level prior), repeat 51.50 and 59.90 (does not appear to have glucocorticoid deficiency given response and initial), S [id number], U Osm 589 (limited usage), U Na 6 (more consistent w/ hypovolemic presentation), abdominal US w/ until pancreas scattered by bowel gas, head of pancreas unremarkable, prior cholecystectomy, no sign of bile duct obstruction, severe right pelvocaliectasis or less likely a number of large addition renal parenchymal cyst new since 2009. Given atypical findings and recurrent issues Nephrology consulted. 06/12/18 repeat Na following improvement 114-->126-->119, reviewed outpatient and patient has been discarding her ostomy output prior to measurement and from discussions feel likely still high output. Change BMP to q 4 with increased supplementation. Repeat U Na pending per Nephrology. Will consult ID to review case given ongoing hyponatremia and high output with recent Shiga gastroenteritis. (2) Elevated Lipase c/w Acute Pancreatitis: Asymptomatic. Unclear specific etiology, recent malaise, fatigue, admission lipase 1043, repeat 1208 following overnight hydration. Abdominal US w/ until pancreas scattered by bowel gas, head of pancreas unremarkable, prior cholecystectomy, no sign of bile duct obstruct ion, severe right pelvocaliectasis or less likely a number of large addition renal parenchymal cyst new since 2009. Clears tolerated, transitioned to regular diet w/ diet intake alterations per patient discretion given s/p colectomy status. (3) Recent N/V/Increased ostomy output secondary to E. Coli Induced Gastroenteritis: Recent admission w/ AMAURY, increased ostomy output w/ + shiga toxin on evaluation. She notes upon current admission output had improved, however, upon recent measurements concern for etiology of ongoing hyponatremia. Per Nephrology they noted intention for repeat stool function studies. Will consult ID to review case given ongoing hyponatremia and high output with recent Shiga gastroenteritis. (4) Chronic COPD: Recent acute exacerbation treatment, continue ATC duonebs, PRN albuterol, HOB, IS parameters. (5) Tobacco Abuse: Encouraged cessation, inpatient consultation per RT, NR if desired. (6) Anxiety and Depression: Given presentation, likely acute hypovolemic hy ponatremia as noted, Nephrology consulted given recurrence #1, will continue patient SSRI but again may need to discontinue. (7) Hypothyroidism: Continue home synthroid regimen, TSH mildly elevated, FT4 normal 1.25. Repeat once clinically improved given recent acute presentation. 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 (9) Hypokalemia: Admission K+ 3.4, supplementation given, repeat level 3.3, additional supplementation administered, mag 2.4. (10) DVT Prophylaxis: SCDs, heparin. Code Visit Inpatient E&M: 33739 Subs Hosp L3
--- NOTE | 2018-06-12 08:22 | NURSING ---
Lab called at 0700 to ensure that labs would be drawn this morning per Dr. harrison's requst. Notified by Shaq that [facility] will be drawing shortly.
[2018-06-12] MEDS: Citalopram 20 MG Tablet PO (09:45)
[2018-06-12] MEDS: Heparin Injection (Vial) 5,000 UNIT/ML VIAL 5000 UNIT SC ×2 (09:45→21:55)
[2018-06-12 10:22] LABS: Urine Sodium 5 mmol/L (Not Establ.)
--- NOTE | 2018-06-12 10:40 | NURSING ---
normal saline rate changed rates several this morning (06/12/18). Used the original bag. ns @ 75 ml/hr at shift change 0859 ns @ 150 ml/hr 0939 ns @ 125 ml/hr
[2018-06-12 10:45] LABS: Anion Gap 10 (5-15); BUN 33 mg/dL (7-18); BUN/Creat Ratio 28.4 RATIO (10-20); Calcium,Total 8.1 mg/dL (8.5-10.1); Chloride 92 mmol/L (98-107); Creatinine, Serum 1.16 mg/dL (0.55-1.02); EST Glomerular Filtration Rate 50 mL/min (>60); Est Glom Filt Rate - Afr Amer 60 mL/min (>60); Estimated Creatinine Clearance 41.75 ml/min; Glucose 119 mg/dL (74-106); Potassium 3.3 mmol/L (3.5-5.1); Sodium Level 119 mmol/L (136-145)
--- NOTE | 2018-06-12 12:12 | PCM.PN.REN ---
Patient Problems: Active and Suspected Problems (Last Updated 06/10/18 @ 14:02 by Willy Steve DO) Pancreatitis (Acute) Shiga toxin-producing Escherichia coli infection (Acute) Subjective: still with loose stools, SSYC negative on repeat. States has history of bowel obstruction with lomotil, fiber diet. Creatinine slightly elevated at 1.16 with soidum 119. Will increase iv fluids. - Physical Exam General: Alert, Oriented x3 Lungs: Clear to auscultation Cardiovascular: Regular rate Abdomen: Bowel Sounds Present, Soft, Non Tender, Non-Distended Extremities: No edema Vital Signs Temp Pulse Resp BP Pulse Ox 97.8 F 86 16 104/64 95 06/12/18 08:06 06/12/18 08:06 06/12/18 08:06 06/12/18 08:06 06/12/18 08:06 Oxygen Delivery Method Room Air Weight: 56.427 kg Body Mass Index (BMI) 21.0 Intake and Output for Last 24 Hours 06/10/18 06/11/18 06/12/18 23:59 23:59 23:59 Intake Total 3458 / 3458 874 / 874 Output Total 1150 / 1150 Balance 3458 / 3458 -276 / -276 Microbiology Past 72 Hours 06/11/18 16:43 Enteric Bacteriology - Final Stool Laboratory Tests Past 24 Hrs 06/12/18 06/12/18 06/12/18 07:08 07:08 10:00 WBC 14.8 H RBC 4.89 Hgb 15.4 H Hct 42.0 MCV 85.9 MCH 31.5 MCHC 36.7 H RDW 11.7 RDW Differential 36.7 Plt Count 348 MPV 9.6 Sodium 119 L* Potassium 3.3 L Chloride 90 L Carbon Dioxide 18.0 L Anion Gap 11 BUN 34 H Creatinine 1.12 H Estim Creat Clear Calc 43.24 Est GFR (MDRD) Af Amer 63 Est GFR (MDRD) Non-Af 52 L BUN/Creatinine Ratio 30.4 H Glucose 106 Calcium 8.3 L Ur Random Sodium 5 06/12/18 10:20 WBC RBC Hgb Hct MCV MCH MCHC RDW RDW Differential Plt Count MPV Sodium 119 L* Potassium 3.3 L Chloride 92 L Carbon Dioxide 17.0 L Anion Gap 10 BUN 33 H Creatinine 1.16 H Estim Creat Clear Calc 41.75 Est GFR (MDRD) Af Amer 60 Est GFR (MDRD) Non-Af 50 L BUN/Creatinine Ratio 28.4 H Glucose 119 H Calcium 8.1 L Ur Random Sodium Medical Necessity - Tobacco Use Smoking Status: Current some day smoker Tobacco Use: Cigarettes Assessment/Plan All Active Problems (Last Updated 06/10/18 @ 14:02 by Willy Steve DO) COPD with acute exacerbation (Acute) Acute viral syndrome (Acute) Hyponatremia (Acute) AMAURY (acute kidney injury) (Acute) Pancreatitis (Acute) Shiga toxin-producing Escherichia coli infection (Acute) 1.AMAURY likely due to dehydration from liquid stools, poor intake. Creatinine increased slightly from 1.01 to 1.16 today. Baseline creatinine 0.87 on 06/06. Increase iv fluids 2. Hyponatremia urine sodium 6 likely due to hypovolemia. Encourage salt in diet. Sodium 119 today. Increase NSS rate. . 3. Shigella diarrhea in May 2018. Repeat stool for shiga toxin negative. Continues to have diarrhea. Consider antidiarrheal agent. 4. Hx colorectal cancer s/p ileostomy converted to colostomy. 5. Hypokalemia, NAG metabolic acidosis likely due to GI loss. Replaced 6. Acute pancreatitis persists. Consider pancreatic insuff. DW hosptalist
--- NOTE | 2018-06-12 12:51 | PCM.HP.ID ---
Problem List (1) Shiga toxin-producing Escherichia coli infection Status: Acute Reason for Consult: shiga (+) Consulted by: Dr. Dowling History of Present Illness: The patient is a 67 year old F with ostomy due to c/o colorectal cancer who was admitted last week with high output, abd cramping, not feeling well. Found to have Shiga (+) stool pcr. Came back with AMAURY and persistent output. Denies fever or chills, no blood in stool during any of this. Cr improving, neph following, feeling better, but still heavy ostomy output. Full ROS performed and neg except as noted above - Medical History Past Medical History (Chronic Problems): Chronic Problems (Last Updated 06/10/18 @ 14:02 by Willy Steve DO) Chronic obstructive pulmonary disease (Chronic) History of colorectal cancer (Chronic) History of creation of ostomy (Chronic) Tobacco use (Chronic) Hypothyroidism (Chronic) Allergies/Adverse Reactions: Allergies Penicillins Allergy (Verified 06/10/18 12:00) Other Home Medications: Ambulatory Orders Medication Instructions Recorded Acetaminophen/Codeine #3 [Tylenol 1 tab PO 4X/DAY 06/04/18 #3 Tablet] Citalopram Hydrobromide 20 mg PO QHS 06/04/18 [Citalopram HBr] Cyanocobalamin [Vitamin B12] 100 mcg IM QWEEK 06/04/18 Levothyroxine [Synthroid] 100 mcg PO QHS 06/04/18 Albuterol IH (ProAir) [Proair Hfa] 1 - 2 puff INHALATION Q4H PRN PRN 06/12/18 #1 inhaler Fluticasone/Salmeterol [Advair 1 each IH BID #1 blst.w.dev 06/12/18 250-50 Diskus] - Social History Tobacco Use: cigarettes Vital Signs Temp Pulse Resp BP Pulse Ox 97.8 F 86 16 104/64 95 06/12/18 08:06 06/12/18 08:06 06/12/18 08:06 06/12/18 08:06 06/12/18 08:06 Oxygen Delivery Method Room Air Weight: 56.427 kg Body Mass Index (BMI) 21.0 Microbiology Past 72 Hours 06/11/18 16:43 Enteric Bacteriology - Final Stool Laboratory Tests Past 24 Hrs 06/12/18 06/12/1818 07:08 07:08 10:00 WBC 14.8 H RBC 4.89 Hgb 15.4 H Hct 42.0 MCV 85.9 MCH 31.5 MCHC 36.7 H RDW 11.7 RDW Differential 36.7 Plt Count 348 MPV 9.6 Sodium 119 L* Potassium 3.3 L Chloride 90 L Carbon Dioxide 18.0 L Anion Gap 11 BUN 34 H Creatinine 1.12 H Estim Creat Clear Calc 43.24 Est GFR (MDRD) Af Amer 63 Est GFR (MDRD) Non-Af 52 L BUN/Creatinine Ratio 30.4 H Glucose 106 Calcium 8.3 L Ur Random Sodium 5 06/12/18 10:20 WBC RBC Hgb Hct MCV MCH MCHC RDW RDW Differential Plt Count MPV Sodium 119 L* Potassium 3.3 L Chloride 92 L Carbon Dioxide 17.0 L Anion Gap 10 BUN 33 H Creatinine 1.16 H Estim Creat Clear Calc 41.75 Est GFR (MDRD) Af Amer 60 Est GFR (MDRD) Non-Af 50 L BUN/Creatinine Ratio 28.4 H Glucose 119 H Calcium 8.1 L Ur Random Sodium - Other Studies Radiology: [] reviewed Other Studies: [] Route of nutrition/ use of supplements: [] Nutritional Intake: [] IV Site: [] Campos Catheter: [] - Physical Exam General: Alert, Oriented x3, Cooperative, No apparent distress HEENT: Atraumatic, PERRLA, EOMI Neck: Supple, No Nodes Lungs: Clear to auscultation, Normal air movement Cardiovascular: Regular rate, Regular Rhythm Abdomen: Soft, Non Tender, Non-Distended, - - ostomy in place Extremities: No edema Skin: No rashes IV Site: Peripheral, without redness Musculoskeletal: No Tenderness to Palpation of Joints or Extremities Neurological: Cranial nerves II-XII grossly intact - Assessment/Plan Antibiotics: [] Assessment/Plan: [] Active and Suspected Problems (Last Updated 06/10/18 @ 14:02 by Willy Steve DO) Pancreatitis (Acute) Shiga (+) ecoli diarrhea - repeat pcr was neg. No role for abx for this infection, will likely take time to resolve completely. Cr improved. Will follow as needed, d/w Dr. Chang and Dr. Dowling.
[2018-06-12 13:43] VITALS: BP 104/64; PULSE 85; RESP 16; TEMP 36.3; O2SAT 99
[2018-06-12] MEDS: Diphenoxylate/Atrop 1 Tablet PO ×3 (13:45→21:55)
[2018-06-12] MEDS: 0.9% Normal Saline 1,000 ML 125 ML IV ×2 (14:19→22:42)
[2018-06-12 15:02] LABS: Anion Gap 11 (5-15); BUN 35 mg/dL (7-18); BUN/Creat Ratio 28.2 RATIO (10-20); Calcium,Total 8.5 mg/dL (8.5-10.1); Chloride 92 mmol/L (98-107); Creatinine, Serum 1.24 mg/dL (0.55-1.02); EST Glomerular Filtration Rate 46 mL/min (>60); Est Glom Filt Rate - Afr Amer 56 mL/min (>60); Estimated Creatinine Clearance 39.06 ml/min; Glucose 105 mg/dL (74-106); Potassium 3.8 mmol/L (3.5-5.1); Sodium Level 122 mmol/L (136-145)
[2018-06-12] MEDS: 0.9% NaCl Peripheral Flush Adult/Peds IV (17:01)
[2018-06-12] MEDS: Ondansetron 4 MG/2 ML Vial IV (17:01)
[2018-06-12 19:16] LABS: Anion Gap 11 (5-15); BUN 35 mg/dL (7-18); BUN/Creat Ratio 29.2 RATIO (10-20); Calcium,Total 8.3 mg/dL (8.5-10.1); Chloride 94 mmol/L (98-107); EST Glomerular Filtration Rate 48 mL/min (>60); Est Glom Filt Rate - Afr Amer 58 mL/min (>60); Estimated Creatinine Clearance 40.36 ml/min; Glucose 107 mg/dL (74-106); Potassium 3.7 mmol/L (3.5-5.1); Sodium Level 122 mmol/L (136-145)
[2018-06-12] MEDS: Ipratropium/Albuterol Sulfate 3 ML AMPUL.NEB INHALATION (19:22)
[2018-06-12 19:23] VITALS: O2SAT 100
[2018-06-12 19:25] VITALS: PULSE 88; RESP 16
[2018-06-12 21:48] VITALS: BP 91/73; PULSE 93; RESP 14; TEMP 36.3; O2SAT 98
[2018-06-12 22:30] LABS: BUN 36 mg/dL (7-18); BUN/Creat Ratio 26.3 RATIO (10-20); Calcium,Total 8.4 mg/dL (8.5-10.1); Chloride 94 mmol/L (98-107); Creatinine, Serum 1.37 mg/dL (0.55-1.02); EST Glomerular Filtration Rate 41 mL/min (>60); Est Glom Filt Rate - Afr Amer 50 mL/min (>60); Estimated Creatinine Clearance 35.35 ml/min; Glucose 128 mg/dL (74-106); Potassium 3.5 mmol/L (3.5-5.1); Sodium Level 123 mmol/L (136-145)
[2018-06-12 22:31] LABS: Anion Gap 12 (5-15)
[2018-06-13] VITALS (9 sets, daily range): BP systolic 94–108; BP diastolic 48–76; PULSE 74–100; RESP 16–20; TEMP 36.6–36.9; O2SAT 93–98
[2018-06-13] MEDS: Levothyroxine 100 MCG Tablet PO (06:29)
[2018-06-13] MEDS: 0.9% Normal Saline 1,000 ML 125 ML IV ×2 (06:29→06:49)
--- NOTE | 2018-06-13 06:57 | PCM.PN.HOSP ---
Patient Problems: Active and Suspected Problems (Last Updated 06/10/18 @ 14:02 by Willy Steve DO) Pancreatitis (Acute) Shiga toxin-producing Escherichia coli infection (Acute) Subjective: Patient overnight despite attempted usage of Lomotil with ongoing high output ostomy. Patient has been more reticent for food intake and primarily hydrating which was discussed at length as need oral food intake to assist in improving decreased liquid ostomy output. Given ongoing increased output discussion with patient and spouse with initiation of Sandostatin for attempted reduction. Discussed plan of care which would include initiation and once output decreasing to discontinue IV fluids to see if patient can maintain her sodium level on her own. Patient denies fevers, chills, nausea, emesis, abdominal pain, chest pain or dyspnea. Objective: Physical Examination: General: awake, alert, oriented x 3 and cooperative, seated upright in bed in no apparent distress. Skin: normal color, turgor, no icterus, cyanosis. HEENT: AT/NC, EOMI, PERRLA, MMM. Lungs: CTA bilaterally, moderate effort, mild decrease BL bases, no rales, ronchi or wheezing. Heart: Regular rate and rhythm; no gallop, rub audible. Abdomen: soft, ostomy RLQ in place with ongoing high output, NTTP, ND, still hyperactive BS. Extremities: no cyanosis, clubbing, or edema. Neurological: patient awake, alert, oriented x 3; cognitive function intact; pupils equally reactive to light and accomodation; cranial nerves II-XII grossly normal, moving all 4 extremities, no focal deficits, strength improved, moderately globally decreased. Psychiatric: affect appears improved, normal, no acute evidence of depressive or anxiety feelings. Vitals/I&O's: Vital Signs Temp Pulse Resp BP Pulse Ox 97.9 F 86 16 103/76 97 06/13/18 02:41 06/13/18 02:41 06/13/18 02:41 06/13/18 02:41 06/13/18 02:41 Oxygen Delivery Method Room Air Weight: 124 lb 6.404 oz Body Mass Index (BMI) 21.0 Intake and Output for Last 24 Hours 06/11/18 06/12/18 06/13/18 23:59 23:59 23:59 Intake Total 3458 / 3458 2221 / 2221 2603 / 2603 Output Total 2450 / 2450 1960 / 1959 Balance 3458 / 3458 -229 / -229 643 / 643 Microbiology Past 72 Hours 06/11/18 16:43 Stool Enteric Bacteriology - Final Laboratory Results 06/12/18 07:08: WBC 14.8 H, RBC 4.89, Hgb 15.4 H, Hct 42.0, MCV 85.9, MCH 31.5, MCHC 36.7 H, RDW 11.7, RDW Differential 36.7, Plt Count 348, MPV 9.6 06/12/18 07:08: Sodium 119 L*, Potassium 3.3 L, Chloride 90 L, Carbon Dioxide 18.0 L, Anion Gap 11, BUN 34 H, Creatinine 1.12 H, Estim Creat Clear Calc 43.24, Est GFR (MDRD) Af Amer 63, Est GFR (MDRD) Non-Af 52 L, BUN/Creatinine Ratio 30.4 H, Glucose 106, Calcium 8.3 L 06/12/18 10:00: Ur Random Sodium 5 06/12/18 10:20: Sodium 119 L*, Potassium 3.3 L, Chloride 92 L, Carbon Dioxide 17.0 L, Anion Gap 10, BUN 33 H, Creatinine 1.16 H, Estim Creat Clear Calc 41.75, Est GFR (MDRD) Af Amer 60, Est GFR (MDRD) Non-Af 50 L, BUN/Creatinine Ratio 28.4 H, Glucose 119 H, Calcium 8.1 L 06/12/18 14:15: Sodium 122 L, Potassium 3.8, Chloride 92 L, Carbon Dioxide 19.0 L, Anion Gap 11, BUN 35 H, Creatinine 1.24 H, Estim Creat Clear Calc 39.06, Est GFR (MDRD) Af Amer 56 L, Est GFR (MDRD) Non-Af 46 L, BUN/Creatinine Ratio 28.2 H, Glucose 105, Calcium 8.5 06/12/18 17:56: Sodium 122 L, Potassium 3.7, Chloride 94 L, Carbon Dioxide 17.0 L, Anion Gap 11, BUN 35 H, Creatinine 1.20 H, Estim Creat Clear Calc 40.36, Est GFR (MDRD) Af Amer 58 L, Est GFR (MDRD) Non-Af 48 L, BUN/Creatinine Ratio 29.2 H, Glucose 107 H, Calcium 8.3 L 06/12/18 22:02: Sodium 123 L, Potassium 3.5, Chloride 94 L, Carbon Dioxide 17.0 L, Anion Gap 12, BUN 36 H, Creatinine 1.37 H, Estim Creat Clear Calc 35.35, Est GFR (MDRD) Af Amer 50 L, Est GFR (MDRD) Non-Af 41 L, BUN/Creatinine Ratio 26.3 H, Glucose 128 H, Calcium 8.4 L Current Medications Acetaminophen (Tylenol) 650 mg PO Q6H PRN PRN PRN Reason: Mild Pain (1-3)/Temp > 100.7 F Acetaminophen/Codeine Phosphate (Tylenol#3) 2 tablet PO BID@0800,1999 [facility] Last Admin: 06/12/18 21:55 Dose: 2 tablet Albuterol Sulfate (Ventolin Aerosols) 2.5 mg INHALATION Q2H PRN PRN PRN Reason: dyspnea, wheezing Albuterol/Ipratropium (Duoneb) 3 ml INHALATION Q6HWA.RT [facility] Last Admin: 06/12/18 19:22 Dose: 3 ml Citalopram Hydrobromide (Celexa) 20 mg PO DAILY [facility] Last Admin: 06/12/18 09:45 Dose: 20 mg Cyanocobalamin (Vitamin B12) 100 mcg IM QWEEK [facility] Diphenoxylate HCl/Atropine (Lomotil) 1 tablet PO 4X/DAY [facility] Last Admin: 06/12/18 21:55 Dose: 1 tablet Heparin Sodium (Porcine) (Heparin Na) 5,000 unit SC Q12 [facility] Last Admin: 06/12/18 21:55 Dose: 5,000 unit Sodium Chloride () 1,000 mls @ 125 mls/hr IV .Q8H [facility] Last Admin: 06/13/18 06:49 Dose: 125 mls/hr Levothyroxine Sodium (Synthroid) 100 mcg PO DAILY@0600 [facility] Last Admin: 06/13/18 06:29 Dose: 100 mcg Magnesium Hydroxide (Milk Of Magnesia) 30 ml PO DAILY PRN PRN PRN Reason: Constipation Ondansetron HCl (Zofran) 4 mg IV Q8H PRN PRN PRN Reason: NAUSEA Last Admin: 06/12/18 17:01 Dose: 4 mg Sodium Chloride () 5 - 30 ml IV UD PRN PRN Reason: SALINE FLUSH Last Admin: 06/12/18 17:01 Dose: 10 ml Medical Necessity - Tobacco Use Smoking Status: Current some day smoker Tobacco Use: Cigarettes Assessment/Plan All Active Problems (Last Updated 06/10/18 @ 14:02 by Willy Steve DO) COPD with acute exacerbation (Acute) Acute viral syndrome (Acute) Hyponatremia (Acute) AMAURY (acute kidney injury) (Acute) Pancreatitis (Acute) Shiga toxin-producing Escherichia coli infection (Acute) The patient is a 67 y/o F w/ PMHx: Chronic COPD, Tobacco use, History of Colorectal Cancer s/p colectomy w/ ostomy, Hypothyroidism who presents to the [facility] ED on 06/04/18 with history of 4-5-day history of dyspnea, cough with mild sputum production, congestion, nausea as well as occasional dry heaving, abdominal cramps and poor intake with increased ostomy output progressively worsening especially over the last 24 hours. (1) Acute Recurrent Severe Hyponatremia, Suspect Recurrent Hypovolemic w/ Recurrent AMAURY secondary to High Ostomy Output: Admission Na 114, similar to recent presentation but corrected upon recent discharge following treatment for #1, admission BUN/Cr 81/2.14, hydrated, nephrotoxic regimen held, repeat 06/11/18 BUN/Cr 45/1.01, Na 126, patient is on citalopram and given recurrent hyponatremia with patient reported appropriate intake and normalized ostomy output but upon measurements initially feel likely still ongoing high ostomy output. TSH 4.52, free T4 pending, Cortisol initial 28.40 (normal level prior), repeat 51.50 and 59.90 (does not appear to have glucocorticoid deficiency given response and initial), S [id number], U Osm 589 (limited usage), U Na 6 (more consistent w/ hypovolemic presentation), abdominal US w/ until pancreas scattered by bowel gas, head of pancreas unremarkable, prior cholecystectomy, no sign of bile duct obstruction, severe right pelvocaliectasis or less likely a number of large addition renal parenchymal cyst new since 2009. Given atypical findings and recurrent issues Nephrology consulted. 06/12/18 repeat Na following improvement 114-->126-->119, reviewed outpatient and patient has been discarding her ostomy output prior to measurement and from discussions feel likely still high output. Changed BMP to q 4 with increased supplementation. Repeat U Na 5, similar per Nephrology. ID consulted to assure no interventions for recent Shiga gastroenteritis and agreed with current management. 06/12/18 added scheduled lomotil without marked effect, will add sandostatin SC regimen. 06/13/18 Na 123. (2) Elevated Lipase c/w Acute Pancreatitis: Asymptomatic. Unclear specific etiology, recent malaise, fatigue, admission lipase 1043, repeat 1208 following overnight hydration. Abdominal US w/ until pancreas scattered by bowel gas, head of pancreas unremarkable, prior cholecystectomy, no sign of bile duct obstruction, severe right pelvocaliectasis or less likely a number of large addition renal parenchymal cyst new since 2009. Clears tolerated, transitioned to regular diet w/ diet intake alterations per patient discretion given s/p colectomy status. (3) Recent N/V/Increased ostomy output secondary to E. Coli Induced Gastroenteritis: Recent admission w/ AMAURY, increased ostomy output w/ + shiga toxin on evaluation. She notes upon current admission output had improved, however, upon recent measurements concern for etiology of ongoing hyponatremia. Per Nephrology they noted intention for repeat stool function studies which was negative. ID consulted, agreed with current management. (4) Chronic COPD: Recent acute exacerbation treatment, continue ATC duonebs, PRN albuterol, HOB, IS parameters. (5) Tobacco Abuse: Encouraged cessation, inpatient consultation per RT, NR if desired. (6) Anxiety and Depression: Given presentation, likely acute hypovolemic hyponatremia as noted, Nephrology consulted given recurrence #1, will continue patient SSRI but again may need to discontinue. (7) Hypothyroidism: Continue home synthroid regimen, TSH mildly elevated, FT4 normal 1.25. Repeat once clinically improved given recent acute presentation. 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 (9) Hypokalemia: Admission K+ 3.5, supplementation given, mag 2.4. (10) DVT Prophylaxis: SCDs, heparin. Code Visit Inpatient E&M: 05182 Subs Hosp L2
[2018-06-13] MEDS: Ipratropium/Albuterol Sulfate 3 ML AMPUL.NEB INHALATION ×3 (07:02→19:13)
--- NOTE | 2018-06-13 07:09 | PN_ITS ---
Patient Problems: Active and Suspected Problems (Last Updated 06/10/18 @ 14:02 by Willy Steve DO) Pancreatitis (Acute) Shiga toxin-producing Escherichia coli infection (Acute) Subjective: Patient overnight despite attempted usage of Lomotil with ongoing high output ostomy. Patient has been more reticent for food intake and primarily hydrating which was discussed at length as need oral food intake to assist in improving decreased liquid ostomy output. Given ongoing increased output discussion with patient and spouse with initiation of Sandostatin for attempted reduction. Discussed plan of care which would include initiation and once output decreasing to discontinue IV fluids to see if patient can maintain her sodium level on her own. Patient denies fevers, chills, nausea, emesis, abdominal pain, chest pain or dyspnea. Objective: Physical Examination: General: awake, alert, oriented x 3 and cooperative, seated upright in bed in no apparent distress. Skin: normal color, turgor, no icterus, cyanosis. HEENT: AT/NC, EOMI, PERRLA, MMM. Lungs: CTA bilaterally, moderate effort, mild decrease BL bases, no rales, ronchi or wheezing. Heart: Regular rate and rhythm; no gallop, rub audible. Abdomen: soft, ostomy RLQ in place with ongoing high output, NTTP, ND, still hyperactive BS. Extremities: no cyanosis, clubbing, or edema. Neurological: patient awake, alert, oriented x 3; cognitive function intact; pupils equally reactive to light and accomodation; cranial nerves II-XII grossly normal, moving all 4 extremities, no focal deficits, strength improved, moderately globally decreased. Psychiatric: affect appears improved, normal, no acute evidence of depressive or anxiety feelings. Vitals/I&O's: Vital Signs Temp Pulse Resp BP Pulse Ox 97.9 F 86 16 103/76 97 06/13/18 02:41 06/13/18 02:41 06/13/18 02:41 06/13/18 02:41 06/13/18 02:41 Oxygen Delivery Method Room Air Weight: 124 lb 6.404 oz Body Mass Index (BMI) 21.0 Intake and Output for Last 24 Hours 06/11/18 06/12/18 06/13/18 23:59 23:59 23:59 Intake Total 3458 / 3458 2221 / 2221 2603 / 2603 Output Total 2450 / 2450 1960 / 1959 Balance 3458 / 3458 -229 / -229 643 / 643 Microbiology Past 72 Hours 06/11/18 16:43 Stool Enteric Bacteriology - Final Laboratory Results 06/12/18 07:08: WBC 14.8 H, RBC 4.89, Hgb 15.4 H, Hct 42.0, MCV 85.9, MCH 31.5, MCHC 36.7 H, RDW 11.7, RDW Differential 36.7, Plt Count 348, MPV 9.6 06/12/18 07:08: Sodium 119 L*, Potassium 3.3 L, Chloride 90 L, Carbon Dioxide 18.0 L, Anion Gap 11, BUN 34 H, Creatinine 1.12 H, Estim Creat Clear Calc 43.24, Est GFR (MDRD) Af Amer 63, Est GFR (MDRD) Non-Af 52 L, BUN/Creatinine Ratio 30.4 H, Glucose 106, Calcium 8.3 L 06/12/18 10:00: Ur Random Sodium 5 06/12/18 10:20: Sodium 119 L*, Potassium 3.3 L, Chloride 92 L, Carbon Dioxide 17.0 L, Anion Gap 10, BUN 33 H, Creatinine 1.16 H, Estim Creat Clear Calc 41.75, Est GFR (MDRD) Af Amer 60, Est GFR (MDRD) Non-Af 50 L, BUN/Creatinine Ratio 28.4 H, Glucose 119 H, Calcium 8.1 L 06/12/18 14:15: Sodium 122 L, Potassium 3.8, Chloride 92 L, Carbon Dioxide 19.0 L, Anion Gap 11, BUN 35 H, Creatinine 1.24 H, Estim Creat Clear Calc 39.06, Est GFR (MDRD) Af Amer 56 L, Est GFR (MDRD) Non-Af 46 L, BUN/Creatinine Ratio 28.2 H , Glucose 105, Calcium 8.5 06/12/18 17:56: Sodium 122 L, Potassium 3.7, Chloride 94 L, Carbon Dioxide 17.0 L, Anion Gap 11, BUN 35 H, Creatinine 1.20 H, Estim Creat Clear Calc 40.36, Est GFR (MDRD) Af Amer 58 L, Est GFR (MDRD) Non-Af 48 L, BUN/Creatinine Ratio 29.2 H , Glucose 107 H, Calcium 8.3 L 06/12/18 22:02: Sodium 123 L, Potassium 3.5, Chloride 94 L, Carbon Dioxide 17.0 L, Anion Gap 12, BUN 36 H, Creatinine 1.37 H, Estim Creat Clear Calc 35.35, Est GFR (MDRD) Af Amer 50 L, Est GFR (MDRD) Non-Af 41 L, BUN/Creatinine Ratio 26.3 H , Glucose 128 H, Calcium 8.4 L Current Medications Acetaminophen (Tylenol) 650 mg PO Q6H PRN PRN PRN Reason: Mild Pain (1-3)/Temp > 100.7 F Acetaminophen/Codeine Phosphate (Tylenol#3) 2 tablet PO BID@0800,1999 [facility] Last Admin: 06/12/18 21:55 Dose: 2 tablet Albuterol Sulfate (Ventolin Aerosols) 2.5 mg INHALATION Q2H PRN PRN PRN Reason: dyspnea, wheezing Albuterol/Ipratropium (Duoneb) 3 ml INHALATION Q6HWA.RT [facility] Last Admin: 06/12/18 19:22 Dose: 3 ml Citalopram Hydrobromide (Celexa) 20 mg PO DAILY [facility] Last Admin: 06/12/18 09:45 Dose: 20 mg Cyanocobalamin (Vitamin B12) 100 mcg IM QWEEK [facility] Diphenoxylate HCl/Atropine (Lomotil) 1 tablet PO 4X/DAY [facility] Last Admin: 06/12/18 21:55 Dose: 1 tablet Heparin Sodium (Porcine) (Heparin Na) 5,000 unit SC Q12 [facility] Last Admin: 06/12/18 21:55 Dose: 5,000 unit Sodium Chloride () 1,000 mls @ 125 mls/hr IV .Q8H [facility] Last Admin: 06/13/18 06:49 Dose: 125 mls/hr Levothyroxine Sodium (Synthroid) 100 mcg PO DAILY@0600 [facility] Last Admin: 06/13/18 06:29 Dose: 100 mcg Magnesium Hydroxide (Milk Of Magnesia) 30 ml PO DAILY PRN PRN PRN Reason: Constipation Ondansetron HCl (Zofran) 4 mg IV Q8H PRN PRN PRN Reason: NAUSEA Last Admin: 06/12/18 17:01 Dose: 4 mg Sodium Chloride () 5 - 30 ml IV UD PRN PRN Reason: SALINE FLUSH Last Admin: 06/12/18 17:01 Dose: 10 ml Medical Necessity - Tobacco Use Smoking Status: Current some day smoker Tobacco Use: Cigarettes Assessment/Plan All Active Problems (Last Updated 06/10/18 @ 14:02 by Willy Steve DO) COPD with acute exacerbation (Acute) Acute viral syndrome (Acute) Hyponatremia (Acute) AMAURY (acute kidney injury) (Acute) Pancreatitis (Acute) Shiga toxin-producing Escherichia coli infection (Acute) The patient is a 67 y/o F w/ PMHx: Chronic COPD, Tobacco use, History of Colorectal Cancer s/p colectomy w/ ostomy, Hypothyroidism who presents to the [facility] ED on 06/04/18 with history of 4-5-day history of dyspnea, cough with mild sputum production, congestion, nausea as well as occasional dry heaving, abdominal cramps and poor intake with increased ostomy output progressively worsening especially over the last 24 hours. (1) Acute Recurrent Severe Hyponatremia, Suspect Recurrent Hypovolemic w/ Recurrent AMAURY secondary to High Ostomy Output: Admission Na 114, similar to recent presentation but corrected upon recent discharge following treatment for #1, admission BUN/Cr 81/2.14, hydrated, nephrotoxic regimen held, repeat 06/11/18 BUN/Cr 45/1.01, Na 126, patient is on citalopram and given recurrent hyponatremia with patient reported appropriate intake and normalized ostomy output but upon measurements initially feel likely still ongoing high ostomy output. TSH 4.52, free T4 pending, Cortisol initial 28.40 (normal level prior), repeat 51.50 and 59.90 (does not appear to have glucocorticoid deficiency given response and initial), S [id number], U Osm 589 (limited usage), U Na 6 (more consistent w/ hypovolemic presentation), abdominal US w/ until pancreas scattered by bowel gas, head of pancreas unremarkable, prior cholecystectomy, no sign of bile duct obstruction, severe right pelvocaliectasis or less likely a number of large addition renal parenchymal cyst new since 2009. Given atypical findings and recurrent issues Nephrology consulted. 06/12/18 repeat Na following improvement 114-->126-->119, reviewed outpatient and patient has been discarding her ostomy output prior to measurement and from discussions feel likely still high output. Changed BMP to q 4 with increased supplementation. Repeat U Na 5, similar per Nephrology. ID consulted to assure no interventions for recent Shiga gastroenteritis and agreed with current management. 06/12/18 added scheduled lomotil without marked effect, will add sandostatin SC regimen. 06/13/18 Na 123. (2) Elevated Lipase c/w Acute Pancreatitis: Asymptomatic. Unclear specific etiology, recent malaise, fatigue, admission lipase 1043, repeat 1208 following overnight hydration. Abdominal US w/ until pancreas scattered by bowel gas, head of pancreas unremarkable, prior cholecystectomy, no sign of bile duct obstruction, severe right pelvocaliectasis or less likely a number of large addition renal parenchymal cyst new since 2009. Clears tolerated, transitioned to regular diet w/ diet intake alterations per patient discretion given s/p colectomy status. (3) Recent N/V/Increased ostomy output secondary to E. Coli Induced Gastroenteritis: Recent admission w/ AMAURY, increased ostomy output w/ + shiga toxin on evaluation. She notes upon current admission output had improved, however, upon recent measurements concern for etiology of ongoing hyponatremia. Per Nephrology they noted intention for repeat stool function studies which was negative. ID consulted, agreed with current management. (4) Chronic COPD: Recent acute exacerbation treatment, continue ATC duonebs, PRN albuterol, HOB, IS parameters. (5) Tobacco Abuse: Encouraged cessation, inpatient consultation per RT, NR if desired. (6) Anxiety and Depression: Given presentation, likely acute hypovolemic hyponatremia as noted, Nephrology consulted given recurrence #1, will continue p atient SSRI but again may need to discontinue. (7) Hypothyroidism: Continue home synthroid regimen, TSH mildly elevated, FT4 normal 1.25. Repeat once clinically improved given recent acute presentation. 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 (9) Hypokalemia: Admission K+ 3.5, supplementation given, mag 2.4. (10) DVT Prophylaxis: SCDs, heparin. Code Visit Inpatient E&M: 90339 Subs Hosp L2
[2018-06-13] MEDS: Acetaminophen/Codeine #3 Tablet 2 TABLET PO ×2 (08:13→20:11)
[2018-06-13 08:18] LABS: Anion Gap 13 (5-15); BUN 34 mg/dL (7-18); BUN/Creat Ratio 27.4 RATIO (10-20); Calcium,Total 8.3 mg/dL (8.5-10.1); Chloride 93 mmol/L (98-107); Creatinine, Serum 1.24 mg/dL (0.55-1.02); EST Glomerular Filtration Rate 46 mL/min (>60); Est Glom Filt Rate - Afr Amer 56 mL/min (>60); Estimated Creatinine Clearance 39.06 ml/min; Glucose 126 mg/dL (74-106); Potassium 3.6 mmol/L (3.5-5.1); Sodium Level 125 mmol/L (136-145)
--- NOTE | 2018-06-13 08:28 | NURSING ---
Pt is notified of new medication sandostain to be administered sub cutaneous. Pt is hesitant at this time to take medication. Medication information is given to pt and explanation given. Wants this nurse to repeat this when her is present. She is also given gatorade and cranberry juice. Pt is also re-educated that water has no electrolytes she should choose gatorade and juices as first choice then water at this itme because of her Na+ level. Pt is re-informed that she is getting hydration by IV and its advised that she attempts to return to her dietary routine at home as to her baseline. She is very hesitant in taking anything by mouth. Continue to educate and provided information as needed.
[2018-06-13 09:01] LABS: Hematocrit 41.8 % (37-47); Mean Corpuscular Volume 87.4 fL (81-99); Mean Platelet Vol. 9.6 fl (6.2-12.0); Platelet Count 332 K/mm3 (150-450); RBC Distribution Width CV 11.8 % (11.6-14.6); RBC Distribution Width SD 37.8 fl (35.1-43.9); Red Blood Count 4.78 M/mm3 (4.2-5.4); White Blood Count 14.2 K/mm3 (4.4-11.0)
[2018-06-13] MEDS: Octreotide 0.1 MG/ML ML 0.05 MG SC ×3 (09:27→21:35)
[2018-06-13 09:37] LABS: Scan Indicated on CBC? Y/N NO
[2018-06-13 09:43] LABS: Hemoglobin 14.8 g/dl (12.0-15.0); Mean Corp Hgb Conc 35.4 g/gl (32-36)
[2018-06-13] MEDS: Citalopram 20 MG Tablet PO (10:10)
[2018-06-13] MEDS: Heparin Injection (Vial) 5,000 UNIT/ML VIAL 5000 UNIT SC ×2 (10:11→21:35)
[2018-06-13] MEDS: Diphenoxylate/Atrop 1 Tablet PO ×4 (10:11→21:34)
[2018-06-13 11:55] LABS: Anion Gap 10 (5-15); BUN 32 mg/dL (7-18); BUN/Creat Ratio 26.9 RATIO (10-20); Calcium,Total 7.9 mg/dL (8.5-10.1); Chloride 95 mmol/L (98-107); Creatinine, Serum 1.19 mg/dL (0.55-1.02); EST Glomerular Filtration Rate 48 mL/min (>60); Est Glom Filt Rate - Afr Amer 58 mL/min (>60); Glucose 155 mg/dL (74-106); Potassium 3.8 mmol/L (3.5-5.1); Sodium Level 122 mmol/L (136-145)
--- NOTE | 2018-06-13 12:59 | CON.PCM_ITS ---
- Consult Date of Consult: 06/13/18 - Reason for Consult Chief Complaint: diarrhea History of Present Illness: 67 y/o WF presents with diarrhea and volume and electrolyte depletion. Admitted to the hospitalist service. She is s/p colectomy with end ileostomy. Surgery was done > 15 years ago in [place]. Had also chemotherapy and radiation therapy. Has also had bowel obstructions in the past, resolved with conservative treatment. Presently with diarrhea, with copious ostomy output. Had tested positive for Shiga toxin. Presently enteric studies reveal that she is pathogen free. Also noted to have elevated lipase, she is s/p cholecystectomy Denies any abdominal pain. I was asked to evaluate patient by the hospitalist service. 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 - had initial resection then underwent completion colectomy history of PUD - gastric COPD Hypothyroidsim Past Surgical History: colectomy, then completion colectomy with ileostomy laparoscopic cholecystectomy enterolysis Medications: tylenol III with codeine citalopram vitamin B12 levothyroxine Allergies: penicillins Social history: TOB use yes lives with spouse Review of Systems: General - denies fevers, has weakness Cardiovascular denies chest pain, denies history of [place] Pulmonary denies coughing up blood Gastrointestinal as per HPI, denies blood in ostomy output Neurological denies seizures, denies history of stroke Genitourinary denies blood in urine Hematological denies spontaneous/prolonged bleeding Skin denies open non healing wounds Musculoskeletal has back pain Endocrine denies diabetes Psychological denies hallucinations Physical examination: Vital signs Temp 98.3F HR 80 RR 18 BP 94/48 General WD/WN WF in no apparent distress, alert and oriented, not septic appearing HEENT Normocephalic. EOM intact with sclera clear and no icterus noted. Neck is supple with no jugular venous distention noted. Trachea is midline. Lungs no labored breathing noted, such as retractions. Heart regular. Abdomen soft and benign. stoma functioning Extremities no calf tenderness swelling noted. Genitourinary/Rectal deferred Skin normal skin integrity. Neurological non focal. Psychological normal affect, patient is calm and appropriate WBC 16k, lipase 1208 Impression: diarrhea episode of bacterial enteritis - resolving - stools clear of pathogen s/p colectomy with end-ileostomy pancreatitis - elevated lipase Discussion/Plan: I have discussed the above with the patient and her . At this point in time, I have no surgical options to offer. I cannot account for the elevated lipase and/or elevated WBC. I suspect that this bacterial enteritis will have to run its course and supportive care (as you are doing) to be given during this period. If no improvement clinically in this patient and/or worsening clinical signs/symptoms, I would recommend transfer to tertiary medical facility with on- site ID/GI support. I have answered all questions to the patient?s satisfaction and the patient has no further questions.
[2018-06-13] MEDS: Creon 3,000 unit DR Capsule 1 CAP PO ×2 (13:00→17:59)
[2018-06-13 13:02] LABS: Magnesium 2.3 mg/dL (1.6-2.6); Phosphorus 2.7 mg/dL (2.5-4.9)
[2018-06-13] MEDS: 0.9% Normal Saline 1,000 ML 150 ML IV ×2 (14:00→21:34)
[2018-06-13 16:22] LABS: Anion Gap 10 (5-15); BUN 29 mg/dL (7-18); BUN/Creat Ratio 24.4 RATIO (10-20); Calcium,Total 7.9 mg/dL (8.5-10.1); Chloride 99 mmol/L (98-107); Creatinine, Serum 1.19 mg/dL (0.55-1.02); EST Glomerular Filtration Rate 48 mL/min (>60); Est Glom Filt Rate - Afr Amer 58 mL/min (>60); Glucose 125 mg/dL (74-106); Potassium 3.9 mmol/L (3.5-5.1); Sodium Level 123 mmol/L (136-145)
[2018-06-13] MEDS: Ondansetron 4 MG/2 ML Vial IV (19:37)
[2018-06-13] MEDS: 0.9% NaCl Peripheral Flush Adult/Peds IV (19:37)
[2018-06-13 20:30] LABS: Anion Gap 9 (5-15); BUN 28 mg/dL (7-18); BUN/Creat Ratio 23.3 RATIO (10-20); Calcium,Total 7.9 mg/dL (8.5-10.1); Chloride 99 mmol/L (98-107); EST Glomerular Filtration Rate 48 mL/min (>60); Est Glom Filt Rate - Afr Amer 58 mL/min (>60); Estimated Creatinine Clearance 40.36 ml/min; Glucose 134 mg/dL (74-106); Potassium 3.5 mmol/L (3.5-5.1); Sodium Level 123 mmol/L (136-145)
[2018-06-14] VITALS (8 sets, daily range): BP systolic 99–110; BP diastolic 57–61; PULSE 65–84; RESP 16–20; TEMP 36.4–37; O2SAT 95–100
[2018-06-14 00:16] LABS: Anion Gap 10 (5-15); BUN 29 mg/dL (7-18); BUN/Creat Ratio 23.8 RATIO (10-20); Calcium,Total 8.1 mg/dL (8.5-10.1); Chloride 101 mmol/L (98-107); Creatinine, Serum 1.22 mg/dL (0.55-1.02); EST Glomerular Filtration Rate 47 mL/min (>60); Est Glom Filt Rate - Afr Amer 57 mL/min (>60); Glucose 143 mg/dL (74-106); Potassium 3.5 mmol/L (3.5-5.1); Sodium Level 124 mmol/L (136-145)
[2018-06-14] MEDS: Acetaminophen 325 MG Tablet 650 MG PO (02:36)
[2018-06-14] MEDS: 0.9% Normal Saline 1,000 ML 150 ML IV ×4 (04:17→20:49)
[2018-06-14] MEDS: Octreotide 0.1 MG/ML ML 0.05 MG SC ×3 (06:15→22:26)
[2018-06-14] MEDS: Levothyroxine 100 MCG Tablet PO (06:15)
[2018-06-14] MEDS: Ipratropium/Albuterol Sulfate 3 ML AMPUL.NEB INHALATION ×3 (06:37→18:23)
[2018-06-14 06:44] LABS: Hematocrit 42.8 % (37-47); Hemoglobin 15.4 g/dl (12.0-15.0); Mean Corpuscular Hgb 32.2 pg (27.0-32.0); Mean Corpuscular Volume 89.4 fL (81-99); Mean Platelet Vol. 9.6 fl (6.2-12.0); Platelet Count 324 K/mm3 (150-450); RBC Distribution Width CV 12.4 % (11.6-14.6); RBC Distribution Width SD 39.6 fl (35.1-43.9); Red Blood Count 4.79 M/mm3 (4.2-5.4)
--- NOTE | 2018-06-14 06:47 | PCM.PN.HOSP ---
Patient Problems: Active and Suspected Problems (Last Updated 06/10/18 @ 14:02 by Willy Steve DO) Pancreatitis (Acute) Shiga toxin-producing Escherichia coli infection (Acute) Subjective: Patient with continued increased ostomy output and decreased urine output but has prior to this been taking little food intake. She did state that finally this morning she feels an improvement in her appetite and states she nearly all of her breakfast. Encouraged her to continue appropriate oral intake with food as continuation of only liquids would contribute to her high ostomy output. Discussed plan of care which includes evaluation per Dr. Salcedo on Friday with continued Sandostatin and Lomotil regimen. Patient understands that if she does improve she will still be encouraged to follow-up with Dr. Salcedo outpatient and possibly gastroenterology. Patient did have some wheezing but this resolved with aerosols. Patient denies fevers, chills, nausea, emesis, abdominal pain, chest pain or dyspnea. Objective: Physical Examination: General: awake, alert, oriented x 3 and cooperative, seated upright in bed in no apparent distress, hard of hearing. Skin: normal color, turgor, no icterus, cyanosis. HEENT: AT/NC, EOMI, PERRLA, MMM. Lungs: CTA bilaterally, moderate effort, mild decrease BL bases, no rales, ronchi or wheezing. Heart: Regular rate and rhythm; no gallop, rub audible. Abdomen: soft, ostomy RLQ in place, NTTP, ND, improved, more normal BS. Extremities: no cyanosis, clubbing, or edema. Neurological: patient awake, alert, oriented x 3; cognitive function intact; pupils equally reactive to light and accomodation; cranial nerves II-XII grossly normal, moving all 4 extremities, no focal deficits, strength improved, moderately globally decreased. Psychiatric: affect appears improved, normal, no acute evidence of depressive or anxiety feelings. Vitals/I&O's: Vital Signs Temp Pulse Resp BP Pulse Ox 97.6 F L 84 16 104/61 95 06/14/18 02:27 06/14/18 02:27 06/14/18 02:27 06/14/18 02:27 06/14/18 02:27 Oxygen Delivery Method Room Air Weight: 124 lb 6.404 oz Body Mass Index (BMI) 21.0 Intake and Output for Last 24 Hours 06/12/18 06/13/18 06/14/18 23:59 23:59 23:59 Intake Total 2221 / 2221 5321 / 5321 1300 / 1300 Output Total 2450 / 2450 6060 / 6060 4100 / 4100 Balance -229 / -229 -739 / -739 -2800 / -2800 Microbiology Past 72 Hours 06/11/18 16:43 Stool Enteric Bacteriology - Final Laboratory Results 06/13/18 07:15: Sodium 125 L, Potassium 3.6, Chloride 93 L, Carbon Dioxide 19.0 L, Anion Gap 13, BUN 34 H, Creatinine 1.24 H, Estim Creat Clear Calc 39.06, Est GFR (MDRD) Af Amer 56 L, Est GFR (MDRD) Non-Af 46 L, BUN/Creatinine Ratio 27.4 H, Glucose 126 H, Calcium 8.3 L 06/13/18 07:20: WBC 14.2 H, RBC 4.78, Hgb 14.8, Hct 41.8, MCV 87.4, MCH 31.0, MCHC 35.4, RDW 11.8, RDW Differential 37.8, Plt Count 332, MPV 9.6 06/13/18 11:35: Sodium 122 L, Potassium 3.8, Chloride 95 L, Carbon Dioxide 17.0 L, Anion Gap 10, BUN 32 H, Creatinine 1.19 H, Estim Creat Clear Calc 40.70, Est GFR (MDRD) Af Amer 58 L, Est GFR (MDRD) Non-Af 48 L, BUN/Creatinine Ratio 26.9 H, Glucose 155 H, Calcium 7.9 L 06/13/18 11:35: Phosphorus 2.7, Magnesium 2.3 06/13/18 15:34: Sodium 123 L, Potassium 3.9, Chloride 99, Carbon Dioxide 14.0 L, Anion Gap 10, BUN 29 H, Creatinine 1.19 H, Estim Creat Clear Calc 40.70, Est GFR (MDRD) Af Amer 58 L, Est GFR (MDRD) Non-Af 48 L, BUN/Creatinine Ratio 24.4 H, Glucose 125 H, Calcium 7.9 L 06/13/18 19:32: Sodium 123 L, Potassium 3.5, Chloride 99, Carbon Dioxide 15.0 L, Anion Gap 9, BUN 28 H, Creatinine 1.20 H, Estim Creat Clear Calc 40.36, Est GFR (MDRD) Af Amer 58 L, Est GFR (MDRD) Non-Af 48 L, BUN/Creatinine Ratio 23.3 H, Glucose 134 H, Calcium 7.9 L 06/13/18 23:38: Sodium 124 L, Potassium 3.5, Chloride 101, Carbon Dioxide 13.0 L, Anion Gap 10, BUN 29 H, Creatinine 1.22 H, Estim Creat Clear Calc 39.70, Est GFR (MDRD) Af Amer 57 L, Est GFR (MDRD) Non-Af 47 L, BUN/Creatinine Ratio 23.8 H, Glucose 143 H, Calcium 8.1 L 06/14/18 05:30: WBC Pending, RBC Pending, Hgb Pending, Hct Pending, MCV Pending, MCH Pending, MCHC Pending, RDW Pending, RDW Differential Pending, Plt Count Pending 06/14/18 05:30: Sodium Pending, Potassium Pending, Chloride Pending, Carbon Dioxide Pending, Anion Gap Pending, BUN Pending, Creatinine Pending, Est GFR (MDRD) Af Amer Pending, Est GFR (MDRD) Non-Af Pending, BUN/Creatinine Ratio Pending, Glucose Pending, Calcium Pending Current Medications Acetaminophen (Tylenol) 650 mg PO Q6H PRN PRN PRN Reason: Mild Pain (1-3)/Temp > 100.7 F Last Admin: 06/14/18 02:36 Dose: 650 mg Acetaminophen/Codeine Phosphate (Tylenol#3) 2 tablet PO BID@0800,2000 [facility] Last Admin: 06/13/18 20:11 Dose: 2 tablet Albuterol Sulfate (Ventolin Aerosols) 2.5 mg INHALATION Q2H PRN PRN PRN Reason: dyspnea, wheezing Albuterol/Ipratropium (Duoneb) 3 ml INHALATION Q6HWA.RT [facility] Last Admin: 06/14/18 06:37 Dose: 3 ml Citalopram Hydrobromide (Celexa) 20 mg PO DAILY [facility] Last Admin: 06/13/18 10:10 Dose: 20 mg Cyanocobalamin (Vitamin B12) 100 mcg IM QWEEK [facility] Diphenoxylate HCl/Atropine (Lomotil) 1 tablet PO 4X/DAY [facility] Last Admin: 10/06/18 21:34 Dose: 1 tablet Heparin Sodium (Porcine) (Heparin Na) 5,000 unit SC Q12 [facility] Last Admin: 06/13/18 21:35 Dose: 5,000 unit Sodium Chloride () 1,000 mls @ 150 mls/hr IV .Q6H40M [facility] Last Admin: 06/14/18 06:15 Dose: 150 mls/hr Levothyroxine Sodium (Synthroid) 100 mcg PO DAILY@0600 [facility] Last Admin: 06/14/18 06:15 Dose: 100 mcg Magnesium Hydroxide (Milk Of Magnesia) 30 ml PO DAILY PRN PRN PRN Reason: Constipation Octreotide Acetate (Sandostatin) 0.05 mg SC TID [facility] Last Admin: 06/14/18 06:15 Dose: 0.05 mg Ondansetron HCl (Zofran) 4 mg IV Q8H PRN PRN PRN Reason: NAUSEA Last Admin: 06/13/18 19:37 Dose: 4 mg Pancrelipase (Creon Dr 3,000 Unit Capsule) 1 capsule PO TIDCM [facility] Last Admin: 06/13/18 17:59 Dose: 1 capsule Sodium Chloride () 5 - 30 ml IV UD PRN PRN Reason: SALINE FLUSH Last Admin: 06/13/18 19:37 Dose: 10 ml Medical Necessity - Tobacco Use Smoking Status: Current some day smoker Tobacco Use: Cigarettes Assessment/Plan All Active Problems (Last Updated 06/10/18 @ 14:02 by Willy Steve DO) COPD with acute exacerbation (Acute) Acute viral syndrome (Acute) Hyponatremia (Acute) AMAURY (acute kidney injury) (Acute) Pancreatitis (Acute) Shiga toxin-producing Escherichia coli infection (Acute) The patient is a 67 y/o F w/ PMHx: Chronic COPD, Tobacco use, History of Colorectal Cancer s/p colectomy w/ ostomy, Hypothyroidism who presents to the [facility] ED on 06/04/18 with history of 4-5-day history of dyspnea, cough with mild sputum production, congestion, nausea as well as occasional dry heaving, abdominal cramps and poor intake with increased ostomy output progressively worsening especially over the last 24 hours. (1) Acute Recurrent Severe Hyponatremia, Suspect Recurrent Hypovolemic w/ Recurrent AMAURY secondary to High Ostomy Output: Admission Na 114, similar to recent presentation but corrected upon recent discharge following treatment for #1, admission BUN/Cr 81/2.14, hydrated, nephrotoxic regimen held, repeat 06/11/18 BUN/Cr 45/1.01, Na 126, patient is on citalopram and given recurrent hyponatremia with patient reported appropriate intake and normalized ostomy output but upon measurements initially feel likely still ongoing high ostomy output. TSH 4.52, free T4 pending, Cortisol initial 28.40 (normal level prior), repeat 51.50 and 59.90 (does not appear to have glucocorticoid deficiency given response and initial), S [id number], U Osm 589 (limited usage), U Na 6 (more consistent w/ hypovolemic presentation), abdominal US w/ until pancreas scattered by bowel gas, head of pancreas unremarkable, prior cholecystectomy, no sign of bile duct obstruction, severe right pelvocaliectasis or less likely a number of large addition renal parenchymal cyst new since 2009. Given atypical findings and recurrent issues Nephrology consulted. 06/12/18 repeat Na following improvement 114-->126-->119, reviewed outpatient and patient has been discarding her ostomy output prior to measurement and from discussions feel likely still high output. Changed BMP to q 4 with increased supplementation. Repeat U Na 5, similar per Nephrology. ID consulted to assure no interventions for recent Shiga gastroenteritis and agreed with current management. 06/12/18 added scheduled lomotil without marked effect, 06/13/18 added sandostatin SC regimen. 06/13/18 Na 123-->06/14/18 Na 125. Ongoing notable ostomy output, but appetite has been improving she notes. Still negative fluid balance. Will increase IVFs w/ bolus also, surgery consulted for assistance to attempt to correct high out w/ plan for evaluation on Friday per Dr. Salcedo who is familiar with patient also. Currently surgery recommendation for continued sandostatin and if worsens may need to consider transfer to tertiary medical facility with on-site GI support. (2) Elevated Lipase c/w Acute Pancreatitis: Asymptomatic. Unclear specific etiology, recent malaise, fatigue, admission lipase 1043, repeat 1208 following overnight hydration. Abdominal US w/ until pancreas scattered by bowel gas, head of pancreas unremarkable, prior cholecystectomy, no sign of bile duct obstruction, severe right pelvocaliectasis or less likely a number of large addition renal parenchymal cyst new since 2009. Clears tolerated, transitioned to regular diet w/ diet intake alterations per patient discretion given s/p colectomy status. (3) Recent N/V/Increased ostomy output secondary to E. Coli Induced Gastroenteritis: Recent admission w/ AMAURY, increased ostomy output w/ + shiga toxin on evaluation. She notes upon current admission output had improved, however, upon recent measurements concern for etiology of ongoing hyponatremia. Per Nephrology they noted intention for repeat stool function studies which was negative. ID consulted, agreed with current management. Adding lactobacillus regimen. (4) Chronic COPD: Recent acute exacerbation treatment, continue ATC duonebs, PRN albuterol, HOB, IS parameters. CXR without acute process. (5) Tobacco Abuse: Encouraged cessation, inpatient consultation per RT, NR if desired. (6) Anxiety and Depression: Given presentation, likely acute hypovolemic hyponatremia as noted, Nephrology consulted given recurrence #1, will continue patient SSRI but again may need to discontinue. (7) Hypothyroidism: Continue home synthroid regimen, TSH mildly elevated, FT4 normal 1.25. Repeat once clinically improved given recent acute presentation. 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 (9) Hypokalemia: Admission K+ 3.5, supplementation given, mag 2.4. 06/14/18 K 3.8. (10) DVT Prophylaxis: SCDs, heparin. Code Visit Inpatient E&M: 59260 Subs Hosp L2
--- NOTE | 2018-06-14 06:55 | PN_ITS ---
Patient Problems: Active and Suspected Problems (Last Updated 06/10/18 @ 14:02 by Willy Steve DO) Pancreatitis (Acute) Shiga toxin-producing Escherichia coli infection (Acute) Subjective: Patient with continued increased ostomy output and decreased urine output but has prior to this been taking little food intake. She did state that finally this morning she feels an improvement in her appetite and states she nearly all of her breakfast. Encouraged her to continue appropriate oral intake with food as continuation of only liquids would contribute to her high ostomy output. Discussed plan of care which includes evaluation per Dr. Salcedo on Friday with continued Sandostatin and Lomotil regimen. Patient understands that if she does improve she will still be encouraged to follow-up with Dr. Salcedo outpatient and possibly gastroenterology. Patient did have some wheezing but this resolved with aerosols. Patient denies fevers, chills, nausea, emesis, abdominal pain, chest pain or dyspnea. Objective: Physical Examination: General: awake, alert, oriented x 3 and cooperative, seated upright in bed in no apparent distress, hard of hearing. Skin: normal color, turgor, no icterus, cyanosis. HEENT: AT/NC, EOMI, PERRLA, MMM. Lungs: CTA bilaterally, moderate effort, mild decrease BL bases, no rales, ronchi or wheezing. Heart: Regular rate and rhythm; no gallop, rub audible. Abdomen: soft, ostomy RLQ in place, NTTP, ND, improved, more normal BS. Extremities: no cyanosis, clubbing, or edema. Neurological: patient awake, alert, oriented x 3; cognitive function intact; pupils equally reactive to light and accomodation; cranial nerves II-XII grossly normal, moving all 4 extremities, no focal deficits, strength improved, moderately globally decreased. Psychiatric: affect appears improved, normal, no acute evidence of depressive or anxiety feelings. Vitals/I&O's: Vital Signs Temp Pulse Resp BP Pulse Ox 97.6 F L 84 16 104/61 95 06/14/18 02:27 06/14/18 02:27 06/14/18 02:27 06/14/18 02:27 06/14/18 02:27 Oxygen Delivery Method Room Air Weight: 124 lb 6.404 oz Body Mass Index (BMI) 21.0 Intake and Output for Last 24 Hours 06/12/18 06/13/18 06/14/18 23:59 23:59 23:59 Intake Total 2221 / 2221 5321 / 5321 1300 / 1300 Output Total 2450 / 2450 6060 / 6060 4100 / 4100 Balance -229 / -229 -739 / -739 -2800 / -2800 Microbiology Past 72 Hours 06/11/18 16:43 Stool Enteric Bacteriology - Final Laboratory Results 06/13/18 07:15: Sodium 125 L, Potassium 3.6, Chloride 93 L, Carbon Dioxide 19.0 L, Anion Gap 13, BUN 34 H, Creatinine 1.24 H, Estim Creat Clear Calc 39.06, Est GFR (MDRD) Af Amer 56 L, Est GFR (MDRD) Non-Af 46 L, BUN/Creatinine Ratio 27.4 H , Glucose 126 H, Calcium 8.3 L 06/13/18 07:20: WBC 14.2 H, RBC 4.78, Hgb 14.8, Hct 41.8, MCV 87.4, MCH 31.0, MCHC 35.4, RDW 11.8, RDW Differential 37.8, Plt Count 332, MPV 9.6 06/13/18 11:35: Sodium 122 L, Potassium 3.8, Chloride 95 L, Carbon Dioxide 17.0 L, Anion Gap 10, BUN 32 H, Creatinine 1.19 H, Estim Creat Clear Calc 40.70, Est GFR (MDRD) Af Amer 58 L, Est GFR (MDRD) Non-Af 48 L, BUN/Creatinine Ratio 26.9 H , Glucose 155 H, Calcium 7.9 L 06/13/18 11:35: Phosphorus 2.7, Magnesium 2.3 06/13/18 15:34: Sodium 123 L, Potassium 3.9, Chloride 99, Carbon Dioxide 14.0 L, Anion Gap 10, BUN 29 H, Creatinine 1.19 H, Estim Creat Clear Calc 40.70, Est GFR (MDRD) Af Amer 58 L, Est GFR (MDRD) Non-Af 48 L, BUN/Creatinine Ratio 24.4 H, Glucose 125 H, Calcium 7.9 L 06/13/18 19:32: Sodium 123 L, Potassium 3.5, Chloride 99, Carbon Dioxide 15.0 L, Anion Gap 9, BUN 28 H, Creatinine 1.20 H, Estim Creat Clear Calc 40.36, Est GFR (MDRD) Af Amer 58 L, Est GFR (MDRD) Non-Af 48 L, BUN/Creatinine Ratio 23.3 H, Glucose 134 H, Calcium 7.9 L 06/13/18 23:38: Sodium 124 L, Potassium 3.5, Chloride 101, Carbon Dioxide 13.0 L , Anion Gap 10, BUN 29 H, Creatinine 1.22 H, Estim Creat Clear Calc 39.70, Est GFR (MDRD) Af Amer 57 L, Est GFR (MDRD) Non-Af 47 L, BUN/Creatinine Ratio 23.8 H , Glucose 143 H, Calcium 8.1 L 06/14/18 05:30: WBC Pending, RBC Pending, Hgb Pending, Hct Pending, MCV Pending, MCH Pending, MCHC Pending, RDW Pending, RDW Differential Pending, Plt Count Pending 06/14/18 05:30: Sodium Pending, Potassium Pending, Chloride Pending, Carbon Dioxide Pending, Anion Gap Pending, BUN Pending, Creatinine Pending, Est GFR (MDRD) Af Amer Pending, Est GFR (MDRD) Non-Af Pending, BUN/Creatinine Ratio Pending, Glucose Pending, Calcium Pending Current Medications Acetaminophen (Tylenol) 650 mg PO Q6H PRN PRN PRN Reason: Mild Pain (1-3)/Temp > 100.7 F Last Admin: 06/14/18 02:36 Dose: 650 mg Acetaminophen/Codeine Phosphate (Tylenol#3) 2 tablet PO BID@0800,2000 [facility] Last Admin: 06/13/18 20:11 Dose: 2 tablet Albuterol Sulfate (Ventolin Aerosols) 2.5 mg INHALATION Q2H PRN PRN PRN Reason: dyspnea, wheezing Albuterol/Ipratropium (Duoneb) 3 ml INHALATION Q6HWA.RT [facility] Last Admin: 06/14/18 06:37 Dose: 3 ml Citalopram Hydrobromide (Celexa) 20 mg PO DAILY [facility] Last Admin: 06/13/18 10:10 Dose: 20 mg Cyanocobalamin (Vitamin B12) 100 mcg IM QWEEK [facility] Diphenoxylate HCl/Atropine (Lomotil) 1 tablet PO 4X/DAY [facility] Last Admin: 10/06/18 21:34 Dose: 1 tablet Heparin Sodium (Porcine) (Heparin Na) 5,000 unit SC Q12 [facility] Last Admin: 06/13/18 21:35 Dose: 5,000 unit Sodium Chloride () 1,000 mls @ 150 mls/hr IV .Q6H40M [facility] Last Admin: 06/14/18 06:15 Dose: 150 mls/hr Levothyroxine Sodium (Synthroid) 100 mcg PO DAILY@0600 [facility] Last Admin: 06/14/18 06:15 Dose: 100 mcg Magnesium Hydroxide (Milk Of Magnesia) 30 ml PO DAILY PRN PRN PRN Reason: Constipation Octreotide Acetate (Sandostatin) 0.05 mg SC TID [facility] Last Admin: 06/14/18 06:15 Dose: 0.05 mg Ondansetron HCl (Zofran) 4 mg IV Q8H PRN PRN PRN Reason: NAUSEA Last Admin: 06/13/18 19:37 Dose: 4 mg Pancrelipase (Creon Dr 3,000 Unit Capsule) 1 capsule PO TIDCM [facility] Last Admin: 06/13/18 17:59 Dose: 1 capsule Sodium Chloride () 5 - 30 ml IV UD PRN PRN Reason: SALINE FLUSH Last Admin: 06/13/18 19:37 Dose: 10 ml Medical Necessity - Tobacco Use Smoking Status: Current some day smoker Tobacco Use: Cigarettes Assessment/Plan All Active Problems (Last Updated 06/10/18 @ 14:02 by Willy Steve DO) COPD with acute exacerbation (Acute) Acute viral syndrome (Acute) Hyponatremia (Acute) AMAURY (acute kidney injury) (Acute) Pancreatitis (Acute) Shiga toxin-producing Escherichia coli infection (Acute) The patient is a 67 y/o F w/ PMHx: Chronic COPD, Tobacco use, History of Colorectal Cancer s/p colectomy w/ ostomy, Hypothyroidism who presents to the [facility] ED on 06/04/18 with history of 4-5-day history of dyspnea, cough with mild sputum production, congestion, nausea as well as occasional dry heaving, abdominal cramps and poor intake with increased ostomy output progressively w orsening especially over the last 24 hours. (1) Acute Recurrent Severe Hyponatremia, Suspect Recurrent Hypovolemic w/ Recurrent AMAURY secondary to High Ostomy Output: Admission Na 114, similar to rece nt presentation but corrected upon recent discharge following treatment for #1, admission BUN/Cr 81/2.14, hydrated, nephrotoxic regimen held, repeat 06/11/18 BUN/Cr 45/1.01, Na 126, patient is on citalopram and given recurrent hyponatremia with patient reported appropriate intake and normalized ostomy output but upon measurements initially feel likely still ongoing high ostomy output. TSH 4.52, free T4 pending, Cortisol initial 28.40 (normal level prior), repeat 51.50 and 59.90 (does not appear to have glucocorticoid deficiency given response and initial), S [id number], U Osm 589 (limited usage), U Na 6 (more consistent w/ hypovolemic presentation), abdominal US w/ until pancreas scattered by bowel gas, head of pancreas unremarkable, prior cholecystectomy, no sign of bile duct obstruction, severe right pelvocaliectasis or less likely a number of large addition renal parenchymal cyst new since 2009. Given atypical findings and recurrent issues Nephrology consulted. 06/12/18 repeat Na following improvement 114-->126-->119, reviewed outpatient and patient has been discarding her ostomy output prior to measurement and from discussions feel likely still high output. Changed BMP to q 4 with increased supplementation. Repeat U Na 5, similar per Nephrology. ID consulted to assure no interventions for recent Shiga gastroenteritis and agreed with current management. 06/12/18 added scheduled lom otil without marked effect, 06/13/18 added sandostatin SC regimen. 06/13/18 Na 123-->06/14/18 Na 125. Ongoing notable ostomy output, but appetite has been improving she notes. Still negative fluid balance. Will increase IVFs w/ bolus also, surgery consulted for assistance to attempt to correct high out w/ plan for evaluation on Friday per Dr. Salcedo who is familiar with patient also. Currently surgery recommendation for continued sandostatin and if worsens may need to consider transfer to tertiary medical facility with on-site GI support. (2) Elevated Lipase c/w Acute Pancreatitis: Asymptomatic. Unclear specific etiology, recent malaise, fatigue, admission lipase 1043, repeat 1208 following overnight hydration. Abdominal US w/ until pancreas scattered by bowel gas, head of pancreas unremarkable, prior cholecystectomy, no sign of bile duct obstruction, severe right pelvocaliectasis or less likely a number of large addition renal parenchymal cyst new since 2009. Clears tolerated, transitioned to regular diet w/ diet intake alterations per patient discretion given s/p colectomy status. (3) Recent N/V/Increased ostomy output secondary to E. Coli Induced Gastroenteritis: Recent admission w/ AMAURY, increased ostomy output w/ + shiga toxin on evaluation. She notes upon current admission output had improved, however, upon recent measurements concern for etiology of ongoing hyponatremia. Per Nephrology they noted intention for repeat stool function studies which was negative. ID consulted, agreed with current management. Adding lactobacillus regimen. (4) Chronic COPD: Recent acute exacerbation treatment, continue ATC duonebs, PRN albuterol, HOB, IS parameters. CXR without acute process. (5) Tobacco Abuse: Encouraged cessation, inpatient consultation per RT, NR if desired. (6) Anxiety and Depression: Given presentation, likely acute hypovolemic hyponatremia as noted, Nephrology consulted given recurrence #1, will continue patient SSRI but again may need to discontinue. (7) Hypothyroidism: Continue home synthroid regimen, TSH mildly elevated, FT4 normal 1.25. Repeat once clinically improved given recent acute presentation. 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 (9) Hypokalemia: Admission K+ 3.5, supplementation given, mag 2.4. 06/14/18 K 3.8. (10) DVT Prophylaxis: SCDs, heparin. Code Visit Inpatient E&M: 30038 Subs Hosp L2
[2018-06-14 06:57] LABS: Scan Indicated on CBC? Y/N NO
[2018-06-14 07:05] LABS: Anion Gap 8 (5-15); BUN 24 mg/dL (7-18); BUN/Creat Ratio 20.9 RATIO (10-20); Calcium,Total 8.3 mg/dL (8.5-10.1); Chloride 99 mmol/L (98-107); Creatinine, Serum 1.15 mg/dL (0.55-1.02); EST Glomerular Filtration Rate 50 mL/min (>60); Est Glom Filt Rate - Afr Amer 61 mL/min (>60); Estimated Creatinine Clearance 42.12 ml/min; Glucose 113 mg/dL (74-106); Potassium 3.8 mmol/L (3.5-5.1); Sodium Level 125 mmol/L (136-145)
[2018-06-14] MEDS: 0.9% Normal Saline 1,000 ML 999 ML IV (07:32)
[2018-06-14] MEDS: Acetaminophen/Codeine #3 Tablet 2 TABLET PO ×2 (07:38→20:49)
[2018-06-14] MEDS: Creon 3,000 unit DR Capsule 1 CAP PO ×3 (07:39→17:03)
--- NOTE | 2018-06-14 08:05 | RAD_ITS ---
STUDY: X-RAY CHEST REASON FOR EXAM: Female, 67 years old. Shortness of breath, dyspnea TECHNIQUE: Frontal and lateral views COMPARISON: June 04, 2018 FINDINGS: The lungs are clear and expanded. There is no demonstrated pleural abnormality. Normal size heart. Normal mediastinum and jonathon. Normal visualized pulmonary arteries. Normal visualized aortic arch and descending thoracic aorta. Mild degenerative changes of the thoracic spine. Normal visualized ribs, clavicles, and shoulders. There is no demonstrated abnormality of the visualized soft tissue structures of the upper abdomen. RAD/Chest PA and Lateral IMPRESSION: Normal x-ray examination of the chest. Electronically Signed: Gentry Junior DO at 9:21 EDT Tel [phone], Service support ,
[2018-06-14] MEDS: Diphenoxylate/Atrop 1 Tablet PO ×4 (10:29→22:26)
[2018-06-14] MEDS: Citalopram 20 MG Tablet PO (10:29)
[2018-06-14] MEDS: Heparin Injection (Vial) 5,000 UNIT/ML VIAL 5000 UNIT SC ×2 (10:30→22:26)
[2018-06-14 12:43] LABS: Mucous, Urine 0 SEEN /hpf (<or=2+)
[2018-06-14 12:51] LABS: Color, Urine Yellow (Yellow); Glucose, Dipstick Normal (Normal); Ketone-Dipstick Negative (Negative); Leukocyte Esterase-Dipstick 500 /ul (Negative); Nitrite-Dipstick Negative (Negative); Occult Blood-Urine 50 /ul (Negative); Protein-Dipstick 30 mg/dl (Negative); Specific Gravity, Urine 1.015 (1.002-1.030); Urine Bilirubin Dipstick Negative (Negative); Urine Clarity Sl. Cloudy (Clear); Urine Urobilinogen Normal (Normal); Urine pH 6.5 (5.0 - 8.0)
[2018-06-14 13:02] LABS: Bacteria 1+ /hpf (None Seen); Red Blood Cells-Urine 0-5 SEEN /hpf (0-5); Squamous Epithelial Cells - UA 0-5 SEEN /hpf (5-10); White Blood Cells 5-10 SEEN /hpf (0-5)
[2018-06-15] VITALS (7 sets, daily range): BP systolic 103–111; BP diastolic 60–72; PULSE 61–86; RESP 16–20; TEMP 36.6–36.8; O2SAT 97–99
[2018-06-15] MEDS: 0.9% Normal Saline 1,000 ML 150 ML IV ×2 (03:19→09:56)
[2018-06-15 05:41] LABS: Hematocrit 34.7 % (37-47); Hemoglobin 12.6 g/dl (12.0-15.0); Mean Corp Hgb Conc 36.3 g/gl (32-36); Mean Corpuscular Hgb 31.9 pg (27.0-32.0); Mean Corpuscular Volume 87.8 fL (81-99); Mean Platelet Vol. 9.2 fl (6.2-12.0); Platelet Count 255 K/mm3 (150-450); RBC Distribution Width CV 11.7 % (11.6-14.6); RBC Distribution Width SD 37.6 fl (35.1-43.9); Red Blood Count 3.95 M/mm3 (4.2-5.4)
[2018-06-15] MEDS: Levothyroxine 100 MCG Tablet PO (05:48)
[2018-06-15] MEDS: Octreotide 0.1 MG/ML ML 0.05 MG SC ×2 (05:48→08:28)
[2018-06-15 05:49] LABS: Scan Indicated on CBC? Y/N NO
[2018-06-15 05:55] LABS: Anion Gap 9 (5-15); BUN 14 mg/dL (7-18); Calcium,Total 7.6 mg/dL (8.5-10.1); Chloride 104 mmol/L (98-107); Creatinine, Serum 0.87 mg/dL (0.55-1.02); EST Glomerular Filtration Rate 69 mL/min (>60); Est Glom Filt Rate - Afr Amer 83 mL/min (>60); Estimated Creatinine Clearance 55.67 ml/min; Glucose 108 mg/dL (74-106); Potassium 3.5 mmol/L (3.5-5.1); Sodium Level 128 mmol/L (136-145)
[2018-06-15] MEDS: Ipratropium/Albuterol Sulfate 3 ML AMPUL.NEB INHALATION ×3 (07:17→19:07)
[2018-06-15] MEDS: Creon 3,000 unit DR Capsule 1 CAP PO ×3 (08:23→16:06)
[2018-06-15] MEDS: Diphenoxylate/Atrop 1 Tablet 2 TABLET PO ×4 (08:28→22:45)
[2018-06-15] MEDS: Acetaminophen/Codeine #3 Tablet 2 TABLET PO ×2 (08:29→20:36)
[2018-06-15] MEDS: Citalopram 20 MG Tablet PO (08:30)
[2018-06-15] MEDS: Heparin Injection (Vial) 5,000 UNIT/ML VIAL 5000 UNIT SC ×2 (08:30→22:41)
--- NOTE | 2018-06-15 09:11 | PCM.PN.HOSP ---
Patient Problems: Active and Suspected Problems (Last Updated 06/10/18 @ 14:02 by Willy Steve DO) Pancreatitis (Acute) Shiga toxin-producing Escherichia coli infection (Acute) Subjective: Patient notes feeling improved and states that she has been eating more foods specifically more solids and states that she does eat frequent small meals. Discussed recommendations per Dr. Salcedo which included increasing Lomotil as well as Sandostatin to which patient was amenable. Noted to patient that her ostomy output was still high and these interventions were necessary to attempt to decrease the output. Patient denies fevers, chills, nausea, emesis, abdominal pain, chest pain or dyspnea. Objective: Physical Examination: General: awake, alert, oriented x 3 and cooperative, walking in the room initially, NAD, hard of hearing. Skin: normal color, turgor, no icterus, cyanosis. HEENT: AT/NC, EOMI, PERRLA, MMM. Lungs: CTA bilaterally, moderate effort, mild decrease BL bases, no rales, ronchi or wheezing. Heart: Regular rate and rhythm; no gallop, rub audible. Abdomen: soft, ostomy RLQ in place, NTTP, ND, improved, more normal BS. Extremities: no cyanosis, clubbing, or edema. Neurological: patient awake, alert, oriented x 3; cognitive function intact; pupils equally reactive to light and accomodation; cranial nerves II-XII grossly normal, moving all 4 extremities, no focal deficits, strength improved, mildly globally decreased. Psychiatric: affect appears normal, no acute evidence of depressive or anxiety feelings. Vitals/I&O's: Vital Signs Temp Pulse Resp BP Pulse Ox 98.1 F 77 18 104/67 98 06/15/18 08:21 06/15/18 08:21 06/15/18 08:21 06/15/18 08:21 06/15/18 08:21 Oxygen Delivery Method Room Air Weight: 124 lb 6.404 oz Body Mass Index (BMI) 21.0 Intake and Output for Last 24 Hours 06/13/18 06/14/18 06/15/18 23:59 23:59 23:59 Intake Total 5321 / 5321 4900 / 4900 1944 / 1944 Output Total 6060 / 6060 7400 / 7400 3200 / 3200 Balance -739 / -739 -2500 / -2500 -1256 / -1256 Microbiology Past 72 Hours 06/11/18 16:43 Stool Enteric Bacteriology - Final Laboratory Results 06/14/18 11:30: Urine Color Yellow, Urine Clarity Sl. Cloudy, Urine pH 6.5, Ur Specific [place] 1.015, Urine Protein 30 H, Urine Glucose (UA) Normal, Urine Ketones Negative, Urine Occult Blood 50 H, Urine Nitrite Negative, Urine Bilirubin Negative, Urine Urobilinogen Normal, Ur Leukocyte Esterase 500 H, Urine RBC 0-5 SEEN, Urine WBC 5-10 SEEN, Ur Squamous Epith Cells 0-5 SEEN, Urine Bacteria 1+, Urine Mucus 0 SEEN 06/15/18 05:15: WBC 11.0, RBC 3.95 L, Hgb 12.6, Hct 34.7 L, MCV 87.8, MCH 31.9, MCHC 36.3 H, RDW 11.7, RDW Differential 37.6, Plt Count 255, MPV 9.2 06/15/18 05:15: Sodium 128 L, Potassium 3.5, Chloride 104, Carbon Dioxide 15.0 L, Anion Gap 9, BUN 14, Creatinine 0.87, Estim Creat Clear Calc 55.67, Est GFR (MDRD) Af Amer 83, Est GFR (MDRD) Non-Af 69, BUN/Creatinine Ratio 16.0, Glucose 108 H, Calcium 7.6 L Current Medications Acetaminophen (Tylenol) 650 mg PO Q6H PRN PRN PRN Reason: Mild Pain (1-3)/Temp > 100.7 F Last Admin: 06/14/18 02:36 Dose: 650 mg Acetaminophen/Codeine Phosphate (Tylenol#3) 2 tablet PO BID@0800,1999 [facility] Last Admin: 06/15/18 08:29 Dose: 2 tablet Albuterol Sulfate (Ventolin Aerosols) 2.5 mg INHALATION Q2H PRN PRN PRN Reason: dyspnea, wheezing Albuterol/Ipratropium (Duoneb) 3 ml INHALATION Q6HWA.RT [facility] Last Admin: 06/15/18 07:17 Dose: 3 ml Citalopram Hydrobromide (Celexa) 20 mg PO DAILY [facility] Last Admin: 06/15/18 08:30 Dose: 20 mg Cyanocobalamin (Vitamin B12) 100 mcg IM QWEEK [facility] Diphenoxylate HCl/Atropine (Lomotil) 2 tablet PO 4X/DAY [facility] Last Admin: 06/15/18 08:28 Dose: 2 tablet Heparin Sodium (Porcine) (Heparin Na) 5,000 unit SC Q12 [facility] Last Admin: 06/15/18 08:30 Dose: 5,000 unit Sodium Chloride () 1,000 mls @ 150 mls/hr IV .Q6H40M [facility] Last Admin: 06/15/18 03:19 Dose: 150 mls/hr Lactobacillus Acidophilus (Acidophilus) 1 tablet PO 4X/DAY [facility] Last Admin: 06/15/18 08:23 Dose: 1 tablet Levothyroxine Sodium (Synthroid) 100 mcg PO DAILY@0600 [facility] Last Admin: 06/15/18 05:48 Dose: 100 mcg Magnesium Hydroxide (Milk Of Magnesia) 30 ml PO DAILY PRN PRN PRN Reason: Constipation Octreotide Acetate (Sandostatin) 0.1 mg SC TID [facility] Ondansetron HCl (Zofran) 4 mg IV Q8H PRN PRN PRN Reason: NAUSEA Last Admin: 06/13/18 19:37 Dose: 4 mg Pancrelipase (Creon Dr 3,000 Unit Capsule) 1 capsule PO TIDCM [facility] Last Admin: 06/15/18 08:23 Dose: 1 capsule Sodium Chloride () 5 - 30 ml IV UD PRN PRN Reason: SALINE FLUSH Last Admin: 06/13/18 19:37 Dose: 10 ml Medical Necessity - Tobacco Use Smoking Status: Current some day smoker Tobacco Use: Cigarettes Assessment/Plan All Active Problems (Last Updated 06/10/18 @ 14:02 by Willy Steve DO) COPD with acute exacerbation (Acute) Acute viral syndrome (Acute) Hyponatremia (Acute) AMAURY (acute kidney injury) (Acute) Pancreatitis (Acute) Shiga toxin-producing Escherichia coli infection (Acute) The patient is a 67 y/o F w/ PMHx: Chronic COPD, Tobacco use, History of Colorectal Cancer s/p colectomy w/ ostomy, Hypothyroidism who presents to the [facility] ED on 06/04/18 with history of 4-5-day history of dyspnea, cough with mild sputum production, congestion, nausea as well as occasional dry heaving, abdominal cramps and poor intake with increased ostomy output progressively worsening especially over the last 24 hours. (1) Acute Recurrent Severe Hyponatremia, Suspect Recurrent Hypovolemic w/ Recurrent AMAURY secondary to High Ostomy Output: Admission Na 114, similar to recent presentation but corrected upon recent discharge following treatment for #1, admission BUN/Cr 81/2.14, hydrated, nephrotoxic regimen held, repeat 06/11/18 BUN/Cr 45/1.01, Na 126, patient is on citalopram and given recurrent hyponatremia with patient reported appropriate intake and normalized ostomy output but upon measurements initially feel likely still ongoing high ostomy output. TSH 4.52, free T4 pending, Cortisol initial 28.40 (normal level prior), repeat 51.50 and 59.90 (does not appear to have glucocorticoid deficiency given response and initial), S [id number], U Osm 589 (limited usage), U Na 6 (more consistent w/ hypovolemic presentation), abdominal US w/ until pancreas scattered by bowel gas, head of pancreas unremarkable, prior cholecystectomy, no sign of bile duct obstruction, severe right pelvocaliectasis or less likely a number of large addition renal parenchymal cyst new since 2009. Given atypical findings and recurrent issues Nephrology consulted. 06/12/18 repeat Na following improvement 114-->126-->119, reviewed outpatient and patient has been discarding her ostomy output prior to measurement and from discussions feel likely still high output. Changed BMP to q 4 with increased supplementation. Repeat U Na 5, similar per Nephrology. ID consulted to assure no interventions for recent Shiga gastroenteritis and agreed with current management. 06/12/18 added scheduled lomotil without marked effect, 06/13/18 added sandostatin SC regimen. 06/13/18 Na 123-->06/14/18 Na 125-->06/15/18 Na 130, improving but still ongoing notable ostomy output. Surgery following, discussed 06/15/[address] Salcedo and he recommended increase of both sandostatin and lomotril in addition to frequent at least 5x/day small meals. Slowly improving BMP, but still increased output. If does not improve per discussion also with Nephrology would consider transfer to Tertiary facility w/ GI availability. (2) Hypokalemia w/ NAG Metabolic Acidosis secondary to #1: Admission K+ 3.5, supplementation given, mag 2.4. 06/15/18 K 3.1, will given additional K supplementation w/ IVFs. Additionally per discussion w/ Nephrology patient initiated on bicarb supplementation. (3) Elevated Lipase c/w Acute Pancreatitis: Asymptomatic. Unclear specific etiology, recent malaise, fatigue, admission lipase 1043, repeat 1208 following overnight hydration. Abdominal US w/ until pancreas scattered by bowel gas, head of pancreas unremarkable, prior cholecystectomy, no sign of bile duct obstruction, severe right pelvocaliectasis or less likely a number of large addition renal parenchymal cyst new since 2009. Clears tolerated, transitioned to regular diet w/ diet intake alterations per patient discretion given s/p colectomy status. (4) Recent N/V/Increased ostomy output secondary to E. Coli Induced Gastroenteritis: Recent admission w/ AMAURY, increased ostomy output w/ + shiga toxin on evaluation. She notes upon current admission output had improved, however, upon recent measurements concern for etiology of ongoing hyponatremia. Per Nephrology they noted intention for repeat stool function studies which was negative. ID consulted, agreed with current management. Added lactobacillus regimen. (5) Chronic COPD: Recent acute exacerbation treatment, continue ATC duonebs, PRN albuterol, HOB, IS parameters. CXR without acute process. (6) Tobacco Abuse: Encouraged cessation, inpatient consultation per RT, NR if desired. (7) Anxiety and Depression: Given presentation, likely acute hypovolemic hyponatremia as noted, Nephrology consulted given recurrence #1, will continue patient SSRI but again may need to discontinue. (8) Hypothyroidism: Continue home synthroid regimen, TSH mildly elevated, FT4 normal 1.25. Repeat once clinically improved given recent acute presentation. 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 (10) DVT Prophylaxis: SCDs, heparin. Code Visit Inpatient E&M: 05700 Subs Hosp L2
--- NOTE | 2018-06-15 12:29 | PN.RENAL_ITS ---
Patient Problems: Active and Suspected Problems (Last Updated 06/10/18 @ 14:02 by Willy Steve DO) Pancreatitis (Acute) Shiga toxin-producing Escherichia coli infection (Acute) Subjective: still with high ostomy output. Has been eating small amounts of solids over weekend. Denies nausea, vomiting. - Physical Exam General: Alert, Oriented x3, Cooperative Lungs: Clear to auscultation Cardiovascular: Regular rate Abdomen: Bowel Sounds Present, Soft, Non Tender, Non-Distended, - - ostomy with liquid greenish fluid Extremities: No edema Neurological: Cranial nerves II-XII grossly intact Psych/Mental Status: Normal Affect, Appropriate, Alert and oriented to time, place, person, mood and affect Vital Signs Temp Pulse Resp BP Pulse Ox 98.1 F 77 18 104/67 98 06/15/18 08:21 06/15/18 08:21 06/15/18 08:21 06/15/18 08:21 06/15/18 08:21 Oxygen Delivery Method Room Air Weight: 56.427 kg Body Mass Index (BMI) 21.0 Intake and Output for Last 24 Hours 06/13/18 06/14/18 06/15/18 23:59 23:59 23:59 Intake Total 5321 / 5321 4900 / 4900 3155 / 3155 Output Total 6060 / 6060 7400 / 7400 4650 / 4650 Balance -739 / -739 -2500 / -2500 -1495 / -1495 Microbiology Past 72 Hours 06/14/18 11:30 Urine Culture - Final Urine, Midstream Mixed Gram Pos & Gram Neg Org 06/11/18 16:43 Enteric Bacteriology - Final Stool Laboratory Tests Past 24 Hrs 06/14/18 06/15/18 06/15/18 11:30 05:15 05:15 WBC 11.0 RBC 3.95 L Hgb 12.6 Hct 34.7 L MCV 87.8 MCH 31.9 MCHC 36.3 H RDW 11.7 RDW Differential 37.6 Plt Count 255 MPV 9.2 Sodium 128 L Potassium 3.5 Chloride 104 Carbon Dioxide 15.0 L Anion Gap 9 BUN 14 Creatinine 0.87 Estim Creat Clear Calc 55.67 Est GFR (MDRD) Af Amer 83 Est GFR (MDRD) Non-Af 69 BUN/Creatinine Ratio 16.0 Glucose 108 H Calcium 7.6 L Urine Color Yellow Urine Clarity Sl. Cloudy Urine pH 6.5 Ur Specific [place] 1.015 Urine Protein 30 H Urine Glucose (UA) Normal Urine Ketones Negative Urine Occult Blood 50 H Urine Nitrite Negative Urine Bilirubin Negative Urine Urobilinogen Normal Ur Leukocyte Esterase 500 H Urine RBC 0-5 SEEN Urine WBC 5-10 SEEN Ur Squamous Epith Cells 0-5 SEEN Urine Bacteria 1+ Urine Mucus 0 SEEN Medical Necessity - Tobacco Use Smoking Status: Current some day smoker Tobacco Use: Cigarettes Assessment/Plan All Active Problems (Last Updated 06/10/18 @ 14:02 by Willy Steve DO) COPD with acute exacerbation (Acute) Acute viral syndrome (Acute) Hyponatremia (Acute) AMAURY (acute kidney injury) (Acute) Pancreatitis (Acute) Shiga toxin-producing Escherichia coli infection (Acute) 1.AMAURY likely due to dehydration from liquid stools, poor intake. Creatinine improved with ivf. Still with high ostomy output. continue to support with iv fluids. 2. Hyponatremia improving with saline. Increase NSS rate. . 3. Shigella diarrhea in May 2018. Repeat stool for shiga toxin negative. Continues to have diarrhea. Consider antidiarrheal agent. 4. Hx colorectal cancer s/p ileostomy converted to colostomy. 5. Hypokalemia, NAG metabolic acidosis likely due to GI loss. Replaced as needed. 6. 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
[2018-06-15 13:59] LABS: Anion Gap 11 (5-15); BUN 11 mg/dL (7-18); BUN/Creat Ratio 11.9 RATIO (10-20); Calcium,Total 7.7 mg/dL (8.5-10.1); Chloride 106 mmol/L (98-107); Creatinine, Serum 0.93 mg/dL (0.55-1.02); EST Glomerular Filtration Rate 64 mL/min (>60); Est Glom Filt Rate - Afr Amer 78 mL/min (>60); Estimated Creatinine Clearance 52.08 ml/min; Glucose 130 mg/dL (74-106); Potassium 3.1 mmol/L (3.5-5.1); Sodium Level 130 mmol/L (136-145)
[2018-06-15] MEDS: Octreotide 0.1 MG/ML ML SC ×2 (15:10→22:47)
[2018-06-15] MEDS: Ondansetron 4 MG/2 ML Vial IV (15:18)
--- NOTE | 2018-06-15 15:19 | PCM.PN.ID ---
Patient Problems: Active and Suspected Problems (Last Updated 06/10/18 @ 14:02 by Willy Steve DO) Pancreatitis (Acute) Shiga toxin-producing Escherichia coli infection (Acute) Subjective: Feeling better, no fever, some abd soreness. Thinks output is improving. - Physical Exam General: Alert, Cooperative, No apparent distress Lungs: Clear to auscultation, Normal air movement Cardiovascular: Regular rate, Regular Rhythm Abdomen: Soft, Non Tender, Non-Distended Skin: No rashes Vital Signs Temp Pulse Resp BP Pulse Ox 98.1 F 72 20 H 104/67 98 06/15/18 08:21 06/15/18 13:12 06/15/18 13:12 06/15/18 08:21 06/15/18 08:21 Oxygen Delivery Method Room Air Weight: 56.427 kg Body Mass Index (BMI) 21.0 Intake and Output for Last 24 Hours 06/13/18 06/14/18 06/15/18 23:59 23:59 23:59 Intake Total 5321 / 5321 4900 / 4900 3155 / 3155 Output Total 6060 / 6060 7400 / 7400 4650 / 4650 Balance -739 / -739 -2500 / -2500 -1495 / -1495 Microbiology Past 72 Hours 06/14/18 11:30 Urine Culture - Final Urine, Midstream Mixed Gram Pos & Gram Neg Org Laboratory Tests Past 24 Hrs 06/15/18 06/15/18 06/15/18 05:15 05:15 13:20 WBC 11.0 RBC 3.95 L Hgb 12.6 Hct 34.7 L MCV 87.8 MCH 31.9 MCHC 36.3 H RDW 11.7 RDW Differential 37.6 Plt Count 255 MPV 9.2 Sodium 128 L 130 L Potassium 3.5 3.1 L Chloride 104 106 Carbon Dioxide 15.0 L 13.0 L Anion Gap 9 11 BUN 14 11 Creatinine 0.87 0.93 Estim Creat Clear Calc 55.67 52.08 Est GFR (MDRD) Af Amer 83 78 Est GFR (MDRD) Non-Af 69 64 BUN/Creatinine Ratio 16.0 11.9 Glucose 108 H 130 H Calcium 7.6 L 7.7 L Medical Necessity - Tobacco Use Smoking Status: Current some day smoker Tobacco Use: Cigarettes Route of nutrition/ use of supplements: [] Nutritional Intake: [] IV Site: [] Campos Catheter: [] - Assessment/Plan Antibiotics: [] Assessment/Plan: [] Active and Suspected Problems (Last Updated 06/10/18 @ 14:02 by Willy Steve DO) Pancreatitis (Acute) Shiga (+) ecoli diarrhea - repeat pcr was neg. No role for abx for this infection, will likely take time to resolve completely. Cr improved. (+) Ucx - mixed shre, minimal inflammation on UA. Cont to monitor off of abx. Will follow as needed,
[2018-06-15] MEDS: Potassium Chloride 40 MEQ in 0.9% Normal Saline 1,000 ML 100 MEQ IV (16:05)
[2018-06-15 20:51] LABS: Anion Gap 10 (5-15); BUN 10 mg/dL (7-18); BUN/Creat Ratio 10.4 RATIO (10-20); Chloride 101 mmol/L (98-107); Creatinine, Serum 0.96 mg/dL (0.55-1.02); EST Glomerular Filtration Rate 61 mL/min (>60); Est Glom Filt Rate - Afr Amer 74 mL/min (>60); Estimated Creatinine Clearance 50.45 ml/min; Glucose 128 mg/dL (74-106); Sodium Level 129 mmol/L (136-145)
[2018-06-16] VITALS (7 sets, daily range): BP systolic 105–111; BP diastolic 55–62; PULSE 57–73; RESP 14–18; TEMP 36.4–36.7; O2SAT 95–100
[2018-06-16] MEDS: Potassium Chloride 40 MEQ in 0.9% Normal Saline 1,000 ML 100 MEQ IV ×2 (03:50→14:54)
[2018-06-16] MEDS: Levothyroxine 100 MCG Tablet PO (05:31)
[2018-06-16] MEDS: Octreotide 0.1 MG/ML ML SC ×3 (05:31→21:47)
[2018-06-16] MEDS: Ipratropium/Albuterol Sulfate 3 ML AMPUL.NEB INHALATION ×3 (05:48→19:26)
[2018-06-16 06:12] LABS: Hematocrit 36.4 % (37-47); Mean Corp Hgb Conc 35.7 g/gl (32-36); Mean Corpuscular Hgb 31.6 pg (27.0-32.0); Mean Corpuscular Volume 88.3 fL (81-99); Mean Platelet Vol. 8.9 fl (6.2-12.0); Platelet Count 275 K/mm3 (150-450); RBC Distribution Width CV 11.9 % (11.6-14.6); RBC Distribution Width SD 37.8 fl (35.1-43.9); Red Blood Count 4.12 M/mm3 (4.2-5.4); White Blood Count 10.1 K/mm3 (4.4-11.0)
[2018-06-16 06:28] LABS: Anion Gap 8 (5-15); BUN 9 mg/dL (7-18); BUN/Creat Ratio 9.9 RATIO (10-20); Calcium,Total 8.1 mg/dL (8.5-10.1); Chloride 103 mmol/L (98-107); Creatinine, Serum 0.91 mg/dL (0.55-1.02); EST Glomerular Filtration Rate 66 mL/min (>60); Est Glom Filt Rate - Afr Amer 80 mL/min (>60); Estimated Creatinine Clearance 53.22 ml/min; Glucose 80 mg/dL (74-106); Potassium 3.3 mmol/L (3.5-5.1); Sodium Level 130 mmol/L (136-145)
[2018-06-16 06:36] LABS: Scan Indicated on CBC? Y/N NO
--- NOTE | 2018-06-16 06:59 | PN_ITS ---
Patient Problems: Active and Suspected Problems (Last Updated 06/10/18 @ 14:02 by Willy Steve DO) Pancreatitis (Acute) Shiga toxin-producing Escherichia coli infection (Acute) Subjective: Patient states she feels as though she continues to improve and appetite is also improving. She states that she is attempting to eat at least 5 small meals per day however nursing notes report that she has been declining certain meals and still partaking of mostly liquids as opposed also solids which has been recommended. Patient is maintained on the higher dose of Sandostatin and Lomotil which was again discussed. Noted plan of care to continue fluids until sodium improved and ostomy output decreased with at that time discontinuation of IV fluids and BMP trending and if sodium stable at that time would allow discharge to home. Discussed again with patient that this is a very slow process given her underlying status with status post colectomy and ostomy with recent sugar toxin infection. Patient denies fevers, chills, nausea, emesis, abdominal pain, chest pain or dyspnea. Objective: Physical Examination: General: awake, alert, oriented x 3 and cooperative, seated upright in bed, eating breakfast, NAD, hard of hearing. Skin: normal color, turgor, no icterus, cyanosis. HEENT: AT/NC, EOMI, PERRLA, MMM. Lungs: CTA bilaterally, moderate effort, mild decrease BL bases, no rales, ronchi or wheezing. Heart: Regular rate and rhythm; no gallop, rub audible. Abdomen: soft, ostomy RLQ in place, NTTP, ND, improved, more normal BS. Extremities: no cyanosis, clubbing, or edema. Neurological: patient awake, alert, oriented x 3; cognitive function intact; pupils equally reactive to light and accomodation; cranial nerves II-XII grossly normal, moving all 4 extremities, no focal deficits, strength improved, mildly globally decreased. Psychiatric: affect appears normal, no acute evidence of depressive or anxiety feelings. Vitals/I&O's: Vital Signs Temp Pulse Resp BP Pulse Ox 97.6 F L 65 18 111/55 L 99 06/16/18 03:00 06/16/18 05:49 06/16/18 05:49 06/16/18 03:00 06/16/18 03:00 Oxygen Delivery Method Room Air Weight: 124 lb 6.404 oz Body Mass Index (BMI) 21.0 Intake and Output for Last 24 Hours 06/14/18 06/15/18 06/16/18 23:59 23:59 23:59 Intake Total 4900 / 4900 4418 / 4418 1268 / 1268 Output Total 7400 / 7400 7350 / 7350 1950 / 1950 Balance -2500 / -2500 -2932 / -2932 -682 / -682 Microbiology Past 72 Hours 06/14/18 11:30 Urine, Midstream Urine Culture - Final Mixed Gram Pos & Gram Neg Org Laboratory Results 06/15/18 13:20: Sodium 130 L, Potassium 3.1 L, Chloride 106, Carbon Dioxide 13.0 L, Anion Gap 11, BUN 11, Creatinine 0.93, Estim Creat Clear Calc 52.08, Est GFR (MDRD) Af Amer 78, Est GFR (MDRD) Non-Af 64, BUN/Creatinine Ratio 11.9, Glucose 130 H, Calcium 7.7 L 06/15/18 20:05: Sodium 129 L, Potassium 3.0 L, Chloride 101, Carbon Dioxide 18.0 L, Anion Gap 10, BUN 10, Creatinine 0.96, Estim Creat Clear Calc 50.45, Est GFR (MDRD) Af Amer 74, Est GFR (MDRD) Non-Af 61, BUN/Creatinine Ratio 10.4, Glucose 128 H, Calcium 9.0 06/16/18 05:46: WBC 10.1, RBC 4.12 L, Hgb 13.0, Hct 36.4 L, MCV 88.3, MCH 31.6, MCHC 35.7, RDW 11.9, RDW Differential 37.8, Plt Count 275, MPV 8.9 06/16/18 05:46: Sodium 130 L, Potassium 3.3 L, Chloride 103, Carbon Dioxide 19.0 L, Anion Gap 8, BUN 9, Creatinine 0.91, Estim Creat Clear Calc 53.22, Est GFR (MDRD) Af Amer 80, Est GFR (MDRD) Non-Af 66, BUN/Creatinine Ratio 9.9 L, Glucose 80, Calcium 8.1 L Current Medications Acetaminophen (Tylenol) 650 mg PO Q6H PRN PRN PRN Reason: Mild Pain (1-3)/Temp > 100.7 F Last Admin: 06/14/18 02:36 Dose: 650 mg Acetaminophen/Codeine Phosphate (Tylenol#3) 2 tablet PO BID@0800,1999 [facility] Last Admin: 06/15/18 20:36 Dose: 2 tablet Albuterol Sulfate (Ventolin Aerosols) 2.5 mg INHALATION Q2H PRN PRN PRN Reason: dyspnea, wheezing Albuterol/Ipratropium (Duoneb) 3 ml INHALATION Q6HWA.RT [facility] Last Admin: 06/16/18 05:48 Dose: 3 ml Citalopram Hydrobromide (Celexa) 20 mg PO DAILY [facility] Last Admin: 06/15/18 08:30 Dose: 20 mg Cyanocobalamin (Vitamin B12) 100 mcg IM QWEEK [facility] Diphenoxylate HCl/Atropine (Lomotil) 2 tablet PO 4X/DAY [facility] Last Admin: 06/15/18 22:45 Dose: 2 tablet Heparin Sodium (Porcine) (Heparin Na) 5,000 unit SC Q12 [facility] Last Admin: 06/15/18 22:41 Dose: 5,000 unit Potassium Chloride 40 meq/ (Sodium Chloride) 1,020 mls @ 100 mls/hr IV .[id number] [facility] Last Admin: 06/16/18 03:50 Dose: 100 mls/hr Sodium Bicarbonate 150 meq/ (Dextrose) 1,150 mls @ 50 mls/hr IV .Q23H [facility] Last Admin: 06/15/18 15:10 Dose: 50 mls/hr Sodium Chloride () 500 mls @ 999 mls/hr IV .Q31M ONE Stop: 06/16/18 07:00 Last Admin: 06/16/18 06:44 Dose: 999 mls/hr Lactobacillus Acidophilus (Acidophilus) 1 tablet PO 4X/DAY [facility] Last Admin: 06/15/18 22:41 Dose: 1 tablet Levothyroxine Sodium (Synthroid) 100 mcg PO DAILY@0600 [facility] Last Admin: 06/16/18 05:31 Dose: 100 mcg Magnesium Hydroxide (Milk Of Magnesia) 30 ml PO DAILY PRN PRN PRN Reason: Constipation Octreotide Acetate (Sandostatin) 0.1 mg SC TID [facility] Last Admin: 06/16/18 05:31 Dose: 0.1 mg Ondansetron HCl (Zofran) 4 mg IV Q8H PRN PRN PRN Reason: NAUSEA Last Admin: 06/15/18 15:18 Dose: 4 mg Pancrelipase (Creon Dr 3,000 Unit Capsule) 1 capsule PO TIDCM [facility] Last Admin: 06/15/18 16:06 Dose: 1 capsule Sodium Chloride () 5 - 30 ml IV UD PRN PRN Reason: SALINE FLUSH Last Admin: 06/13/18 19:37 Dose: 10 ml Medical Necessity - Tobacco Use Smoking Status: Current some day smoker Tobacco Use: Cigarettes Assessment/Plan All Active Problems (Last Updated 06/10/18 @ 14:02 by Willy Steve, ) COPD with acute exacerbation (Acute) Acute viral syndrome (Acute) Hyponatremia (Acute) AMAURY (acute kidney injury) (Acute) Pancreatitis (Acute) Shiga toxin-producing Escherichia coli infection (Acute) The patient is a 67 y/o F w/ PMHx: Chronic COPD, Tobacco use, History of Color ectal Cancer s/p colectomy w/ ostomy, Hypothyroidism who presents to the [facility] ED on 06/04/18 with history of 4-5-day history of dyspnea, cough with mild sputum production, congestion, nausea as well as occasional dry heaving, abdominal cramps and poor intake with increased ostomy output progressively worsening especially over the last 24 hours. (1) Acute Recurrent Severe Hyponatremia, Suspect Recurrent Hypovolemic w/ Recurrent AMAURY secondary to High Ostomy Output: Admission Na 114, similar to recent presentation but corrected upon recent discharge following treatment for #1, admission BUN/Cr 81/2.14, hydrated, nephrotoxic regimen held, repeat 06/11/18 BUN/Cr 45/1.01, Na 126, patient is on citalopram and given recurrent hyponatremia with patient reported appropriate intake and normalized ostomy output but upon measurements initially feel likely still ongoing high ostomy output. TSH 4.52, free T4 pending, Cortisol initial 28.40 (normal level prior), repeat 51.50 and 59.90 (does not appear to have glucocorticoid deficiency given response and initial), S [id number], U Osm 589 (limited usage), U Na 6 (more consistent w/ hypovolemic presentation), abdominal US w/ until pancreas scattered by bowel gas, head of pancreas unremarkable, prior cholecystectomy, no sign of bile duct obstruction, severe right pelvocaliectasis or less likely a number of large addition renal parenchymal cyst new since 2009. Given atypical findings and recurrent issues Nephrology consulted. 06/12/18 repeat Na following improvement 114-->126-->119, reviewed outpatient and patient has been discarding her ostomy output prior to measurement and from discussions feel likely still high output. Changed BMP to q 4 with increased supplementation. Repeat U Na 5, similar per Nephrology. ID consulted to assure no interventions for recent Shiga gastroenteritis and agreed with current management. 06/12/18 added scheduled lomotil without marked effect, 06/13/18 added sandostatin SC regimen. 06/13/18 Na 123-->06/16/18 Na 130, improving but still ongoing notable ostomy output. Surgery following, discussed 06/15/[address] Salcedo and he recommended increase of both sandostatin and lomotril in addition to frequent at least 5x/day small meals. Slowly improving BMP, but still increased output. If does not improve per discussion also with Nephrology would consider transfer to Tertiary facility w/ GI availability. Since current admission weight 130 lb-->124 lb. Likely will only take time for improvement given shiga infection; however, may need to consider transfer to Tertiary or facility with GI access. (2) Hypokalemia w/ NAG Metabolic Acidosis secondary to #1: Admission K+ 3.5, supplementation given, mag 2.4. 06/16/18 K 3.3, will given additional K supplementation w/ IVFs and oral supplementation. Additionally per discussion w/ Nephrology patient initiated on bicarb supplementation. (3) Elevated Lipase c/w Acute Pancreatitis: Asymptomatic. Unclear specific etiology, recent malaise, fatigue, admission lipase 1043, repeat 1208 following overnight hydration. Abdominal US w/ until pancreas scattered by bowel gas, head of pancreas unremarkable, prior cholecystectomy, no sign of bile duct obstruction, severe right pelvocaliectasis or less likely a number of large addition renal parenchymal cyst new since 2009. Clears tolerated, transitioned to regular diet w/ diet intake alterations per patient discretion given s/p colectomy status. (4) Recent N/V/Increased ostomy output secondary to E. Coli Induced Gastroenteritis: Recent admission w/ AMAURY, increased ostomy output w/ + shiga toxin on evaluation. She notes upon current admission output had improved, however, upon recent measurements concern for etiology of ongoing hyponatremia. Per Nephrology they noted intention for repeat stool function studies which was negative. ID consulted, agreed with current management. Added lactobacillus regimen. (5) Chronic COPD: Recent acute exacerbation treatment, continue ATC duonebs, PRN albuterol, HOB, IS parameters. CXR without acute process. (6) Tobacco Abuse: Encouraged cessation, inpatient consultation per RT, NR if desired. (7) Anxiety and Depression: Given presentation, likely acute hypovolemic hyponatremia as noted, Nephrology consulted given recurrence #1, will continue patient SSRI but again may need to discontinue. (8) Hypothyroidism: Continue home synthroid regimen, TSH mildly elevated, FT4 normal 1.25. Repeat once clinically improved given recent acute presentation. (9) History of Colorectal Cancer: s/p colectomy w/ ostomy, closely monitor ostomy output given now suspected recurrent high output, change room attendant consultation. (10) DVT Prophylaxis: SCDs, heparin. Code Visit Inpatient E&M: 88408 Subs Hosp L2
[2018-06-16] MEDS: Acetaminophen/Codeine #3 Tablet 2 TABLET PO ×2 (08:29→21:41)
[2018-06-16] MEDS: Diphenoxylate/Atrop 1 Tablet 2 TABLET PO ×4 (08:29→21:41)
[2018-06-16] MEDS: Creon 3,000 unit DR Capsule 1 CAP PO ×3 (08:30→17:25)
[2018-06-16] MEDS: Citalopram 20 MG Tablet PO (08:30)
[2018-06-16] MEDS: Cyanocobalamin (B12) 1,000 MCG/ML Vial 100 MCG IM (08:31)
[2018-06-16] MEDS: Heparin Injection (Vial) 5,000 UNIT/ML VIAL 5000 UNIT SC ×2 (08:31→21:42)
[2018-06-16 13:22] LABS: Anion Gap 9 (5-15); BUN 9 mg/dL (7-18); BUN/Creat Ratio 9.7 RATIO (10-20); Calcium,Total 7.9 mg/dL (8.5-10.1); Chloride 106 mmol/L (98-107); Creatinine, Serum 0.93 mg/dL (0.55-1.02); EST Glomerular Filtration Rate 64 mL/min (>60); Est Glom Filt Rate - Afr Amer 78 mL/min (>60); Estimated Creatinine Clearance 52.08 ml/min; Glucose 100 mg/dL (74-106); Potassium 3.4 mmol/L (3.5-5.1); Sodium Level 133 mmol/L (136-145)
[2018-06-16 16:59] LABS: Anion Gap 8 (5-15); BUN 9 mg/dL (7-18); BUN/Creat Ratio 9.8 RATIO (10-20); Calcium,Total 7.8 mg/dL (8.5-10.1); Chloride 106 mmol/L (98-107); Creatinine, Serum 0.92 mg/dL (0.55-1.02); EST Glomerular Filtration Rate 65 mL/min (>60); Est Glom Filt Rate - Afr Amer 79 mL/min (>60); Estimated Creatinine Clearance 52.64 ml/min; Glucose 152 mg/dL (74-106); Potassium 3.5 mmol/L (3.5-5.1); Sodium Level 132 mmol/L (136-145)
[2018-06-16] MEDS: Calcium Carbonate 500 MG Tablet PO (17:28)
[2018-06-16 20:39] LABS: Anion Gap 8 (5-15); BUN 8 mg/dL (7-18); BUN/Creat Ratio 9.2 RATIO (10-20); Calcium,Total 8.6 mg/dL (8.5-10.1); Chloride 102 mmol/L (98-107); Creatinine, Serum 0.87 mg/dL (0.55-1.02); EST Glomerular Filtration Rate 69 mL/min (>60); Est Glom Filt Rate - Afr Amer 84 mL/min (>60); Estimated Creatinine Clearance 55.67 ml/min; Glucose 121 mg/dL (74-106); Potassium 3.4 mmol/L (3.5-5.1); Sodium Level 129 mmol/L (136-145)
[2018-06-17] VITALS (7 sets, daily range): BP systolic 86–103; BP diastolic 45–61; PULSE 61–87; RESP 14–20; TEMP 36.4–37.7; O2SAT 98–100
[2018-06-17] MEDS: Potassium Chloride 40 MEQ in 0.9% Normal Saline 1,000 ML 100 MEQ IV ×2 (04:18→14:53)
[2018-06-17 06:18] LABS: Hemoglobin 12.6 g/dl (12.0-15.0); Mean Corpuscular Hgb 32.1 pg (27.0-32.0); Mean Corpuscular Volume 89.1 fL (81-99); Mean Platelet Vol. 9.2 fl (6.2-12.0); Platelet Count 280 K/mm3 (150-450); RBC Distribution Width CV 12.3 % (11.6-14.6); RBC Distribution Width SD 39.1 fl (35.1-43.9); Red Blood Count 3.93 M/mm3 (4.2-5.4); White Blood Count 9.5 K/mm3 (4.4-11.0)
[2018-06-17 06:23] LABS: Scan Indicated on CBC? Y/N NO
[2018-06-17 06:28] LABS: Anion Gap 5 (5-15); BUN 7 mg/dL (7-18); BUN/Creat Ratio 7.7 RATIO (10-20); Calcium,Total 8.1 mg/dL (8.5-10.1); Chloride 104 mmol/L (98-107); EST Glomerular Filtration Rate 66 mL/min (>60); Est Glom Filt Rate - Afr Amer 80 mL/min (>60); Estimated Creatinine Clearance 53.81 ml/min; Glucose 98 mg/dL (74-106); Potassium 4.8 mmol/L (3.5-5.1); Sodium Level 130 mmol/L (136-145)
[2018-06-17] MEDS: Octreotide 0.1 MG/ML ML SC ×3 (06:50→21:39)
[2018-06-17] MEDS: Levothyroxine 100 MCG Tablet PO (06:50)
[2018-06-17 06:56] LABS: Phosphorus 0.9 mg/dL (2.5-4.9)
[2018-06-17] MEDS: Ipratropium/Albuterol Sulfate 3 ML AMPUL.NEB INHALATION ×3 (07:25→19:56)
[2018-06-17 07:49] LABS: Magnesium 1.8 mg/dL (1.6-2.6)
[2018-06-17] MEDS: Creon 3,000 unit DR Capsule 1 CAP PO ×3 (08:09→17:44)
[2018-06-17] MEDS: Calcium Carbonate 500 MG Tablet PO ×2 (08:10→17:44)
[2018-06-17] MEDS: Acetaminophen/Codeine #3 Tablet 2 TABLET PO ×2 (08:12→21:31)
--- NOTE | 2018-06-17 08:54 | PCM.PN.HOSP ---
Patient Problems: Active and Suspected Problems (Last Updated 06/10/18 @ 14:02 by Willy Steve DO) Pancreatitis (Acute) Shiga toxin-producing Escherichia coli infection (Acute) Subjective: The patient is a 67 y/o F w/ PMHx: Chronic COPD, Tobacco use, History of Colorectal Cancer s/p colectomy w/ ostomy, Hypothyroidism who presents to the [facility] ED on 06/04/18 with history of 4-5-day history of dyspnea, cough with mild sputum production, congestion, nausea as well as occasional dry heaving, abdominal cramps and poor intake with increased ostomy output progressively worsening especially over the last 24 hours. Admission Na 114, similar to recent presentation but corrected upon recent discharge following treatment for #1, admission BUN/Cr 81/2.14, hydrated, nephrotoxic regimen held, repeat 06/11/18 BUN/Cr 45/1.01, Na 126, patient is on citalopram and given recurrent hyponatremia with patient reported appropriate intake and normalized ostomy output but upon measurements initially feel likely still ongoing high ostomy output. TSH 4.52, free T4 pending, Cortisol initial 28.40 (normal level prior), repeat 51.50 and 59.90 (does not appear to have glucocorticoid deficiency given response and initial), S [id number], U Osm 589 (limited usage), U Na 6 (more consistent w/ hypovolemic presentation), abdominal US w/ until pancreas scattered by bowel gas, head of pancreas unremarkable, prior cholecystectomy, no sign of bile duct obstruction, severe right pelvocaliectasis or less likely a number of large addition renal parenchymal cyst new since 2009. Given atypical findings and recurrent issues Nephrology consulted. 06/12/18 repeat Na following improvement 114-->126-->119, reviewed outpatient and patient has been discarding her ostomy output prior to measurement and from discussions feel likely still high output. Changed BMP to q 4 with increased supplementation. Repeat U Na 5, similar per Nephrology. ID consulted to assure no interventions for recent Shiga gastroenteritis and agreed with current management. 06/12/18 added scheduled lomotil without marked effect, 06/13/18 added sandostatin SC regimen. 06/13/18 Na 123-->06/17/18 Na 130, improving and slowly ostomy output has been decreasing. Maintained on high dose sandostatin and lomotril in addition to frequent at least 5x/day small meals. Per discussion with Nephrology and ID, likely will only take time for improvement given shiga infection complicated by colectomy status. Will discuss with nephrology today and may need to consider hold on IVFs either today or tomorrow with continued BMP trending to assess if patient able to maintain an appropriate stable sodium level. If remains stable would then be able to discharge to home w/ close repeat BMP and close follow-u-p with PCP and Nephrology; however, if has recurrent severe drop as prior, may need to consider transfer to Tertiary or facility with GI access. Admission K+ 3.5, supplementation given, mag 2.4. 06/16/18 K 3.3-->06/17/18 K 4.8, will decrease prior added scheduled BID K supplementation, also ongoing IV K w/ IVFs supplementation. Maintained on also bicarb low dose IV, as noted improving labs and very slowly decreased high output ostomy reduction, will need to consider trial off IVFs, possible in the next 24-48 hours but will need to discuss with Nephrology. Patient with no acute events overnight per self and per nursing report. She states that output has slowly been decreasing and she does state that she is eating small frequent meals but had declined to eat more than 5 small meals per day. Patient again notes that her appetite has continued to improve and she is again eating this morning upon evaluation. Discussed plan of care with patient which would include discussion with nephrology today and consideration of discontinuation of IV fluids either today or tomorrow and continued BMP trending to assess if able to discharge to home safely. Given patient ostomy output suspect that she does chronically have mild hyponatremia. Patient denies fevers, chills, nausea, emesis, abdominal pain, chest pain or dyspnea. Objective: Physical Examination: General: awake, alert, oriented x 3 and cooperative, seated upright in bed, eating breakfast, NAD, more interactive and continues to appear improved. Skin: normal color, turgor, no icterus, cyanosis. HEENT: AT/NC, EOMI, PERRLA, MMM. Lungs: CTA bilaterally, moderate effort, mild decrease BL bases, no rales, ronchi or wheezing. Heart: Regular rate and rhythm; no gallop, rub audible. Abdomen: soft, ostomy RLQ in place, NTTP, ND, normal BS. Extremities: no cyanosis, clubbing, or edema. Neurological: patient awake, alert, oriented x 3; cognitive function intact; pupils equally reactive to light and accomodation; cranial nerves II-XII grossly normal, moving all 4 extremities, no focal deficits, strength improved, preserved. Psychiatric: affect appears normal, no acute evidence of depressive or anxiety feelings. Vitals/I&O's: Vital Signs Temp Pulse Resp BP Pulse Ox 98.2 F 61 16 98/52 L 98 06/17/18 06:46 06/17/18 06:46 06/17/18 06:46 06/17/18 06:46 06/17/18 06:46 Oxygen Delivery Method Room Air Weight: 124 lb 6.404 oz Body Mass Index (BMI) 21.0 Intake and Output for Last 24 Hours 06/15/18 06/16/18 06/17/18 23:59 23:59 23:59 Intake Total 4418 / 4418 4786 / 4786 2664 / 2664 Output Total 7350 / 7350 6050 / 6050 1900 / 1900 Balance -2932 / -2932 -1264 / -1264 764 / 764 Microbiology Past 72 Hours 06/14/18 11:30 Urine, Midstream Urine Culture - Final Mixed Gram Pos & Gram Neg Org Laboratory Results 06/16/18 12:45: Sodium 133 L, Potassium 3.4 L, Chloride 106, Carbon Dioxide 18.0 L, Anion Gap 9, BUN 9, Creatinine 0.93, Estim Creat Clear Calc 52.08, Est GFR (MDRD) Af Amer 78, Est GFR (MDRD) Non-Af 64, BUN/Creatinine Ratio 9.7 L, Glucose 100, Calcium 7.9 L 06/16/18 16:00: Sodium 132 L, Potassium 3.5, Chloride 106, Carbon Dioxide 18.0 L, Anion Gap 8, BUN 9, Creatinine 0.92, Estim Creat Clear Calc 52.64, Est GFR (MDRD) Af Amer 79, Est GFR (MDRD) Non-Af 65, BUN/Creatinine Ratio 9.8 L, Glucose 152 H, Calcium 7.8 L 06/16/18 20:10: Sodium 129 L, Potassium 3.4 L, Chloride 102, Carbon Dioxide 19.0 L, Anion Gap 8, BUN 8, Creatinine 0.87, Estim Creat Clear Calc 55.67, Est GFR (MDRD) Af Amer 84, Est GFR (MDRD) Non-Af 69, BUN/Creatinine Ratio 9.2 L, Glucose 121 H, Calcium 8.6 06/17/18 05:40: WBC 9.5, RBC 3.93 L, Hgb 12.6, Hct 35.0 L, MCV 89.1, MCH 32.1 H, MCHC 36.0, RDW 12.3, RDW Differential 39.1, Plt Count 280, MPV 9.2 06/17/18 05:40: Sodium 130 L, Potassium 4.8, Chloride 104, Carbon Dioxide 21.0, Anion Gap 5, BUN 7, Creatinine 0.90, Estim Creat Clear Calc 53.81, Est GFR (MDRD) Af Amer 80, Est GFR (MDRD) Non-Af 66, BUN/Creatinine Ratio 7.7 L, Glucose 98, Calcium 8.1 L 06/17/18 05:40: Phosphorus 0.9 L* 06/17/18 05:40: Magnesium 1.8 Current Medications Acetaminophen (Tylenol) 650 mg PO Q6H PRN PRN PRN Reason: Mild Pain (1-3)/Temp > 100.7 F Last Admin: 06/14/18 02:36 Dose: 650 mg Acetaminophen/Codeine Phosphate (Tylenol#3) 2 tablet PO BID@0800,1999 [facility] Last Admin: 06/17/18 08:12 Dose: 2 tablet Albuterol Sulfate (Ventolin Aerosols) 2.5 mg INHALATION Q2H PRN PRN PRN Reason: dyspnea, wheezing Albuterol/Ipratropium (Duoneb) 3 ml INHALATION Q6HWA.RT [facility] Last Admin: 06/17/18 07:25 Dose: 3 ml Calcium Carbonate (Tums) 500 mg PO BIDCM [facility] Last Admin: 06/17/18 08:10 Dose: 500 mg Citalopram Hydrobromide (Celexa) 20 mg PO DAILY [facility] Last Admin: 06/16/18 08:30 Dose: 20 mg Cyanocobalamin (Vitamin B12) 100 mcg IM QWEEK [facility] Last Admin: 06/16/18 08:31 Dose: 100 mcg Diphenoxylate HCl/Atropine (Lomotil) 2 tablet PO 4X/DAY [facility] Last Admin: 10/09/18 21:41 Dose: 2 tablet Heparin Sodium (Porcine) (Heparin Na) 5,000 unit SC Q12 [facility] Last Admin: 06/16/18 21:42 Dose: 5,000 unit Potassium Chloride 40 meq/ (Sodium Chloride) 1,020 mls @ 100 mls/hr IV .[id number] [facility] Last Admin: 06/17/18 04:18 Dose: 100 mls/hr Sodium Bicarbonate 150 meq/ (Dextrose) 1,150 mls @ 50 mls/hr IV .Q23H [facility] Last Admin: 06/16/18 11:40 Dose: 50 mls/hr Sodium Phosphate 21 mm/ Sodium (Chloride) 257 mls @ 84 mls/hr IV X1 ONE Stop: 06/17/18 11:33 Lactobacillus Acidophilus (Acidophilus) 1 tablet PO 4X/DAY [facility] Last Admin: 06/17/18 08:10 Dose: 1 tablet Levothyroxine Sodium (Synthroid) 100 mcg PO DAILY@0600 [facility] Last Admin: 06/17/18 06:50 Dose: 100 mcg Magnesium Hydroxide (Milk Of Magnesia) 30 ml PO DAILY PRN PRN PRN Reason: Constipation Octreotide Acetate (Sandostatin) 0.1 mg SC TID [facility] Last Admin: 06/17/18 06:50 Dose: 0.1 mg Ondansetron HCl (Zofran) 4 mg IV Q8H PRN PRN PRN Reason: NAUSEA Last Admin: 06/15/18 15:18 Dose: 4 mg Pancrelipase (Creon Dr 3,000 Unit Capsule) 1 capsule PO TIDCM [facility] Last Admin: 06/17/18 08:09 Dose: 1 capsule Potassium Chloride (K-Dur) 20 meq PO BIDCM [facility] Last Admin: 06/17/18 08:10 Dose: 20 meq Potassium Phos/Sodium Phos (Neutra-Phos Packet) 1 packet PO 4X/DAYCM [facility] Sodium Chloride () 5 - 30 ml IV UD PRN PRN Reason: SALINE FLUSH Last Admin: 06/13/18 19:37 Dose: 10 ml Medical Necessity - Tobacco Use Smoking Status: Current some day smoker Tobacco Use: Cigarettes Assessment/Plan All Active Problems (Last Updated 06/10/18 @ 14:02 by Willy Steve DO) COPD with acute exacerbation (Acute) Acute viral syndrome (Acute) Hyponatremia (Acute) AMAURY (acute kidney injury) (Acute) Pancreatitis (Acute) Shiga toxin-producing Escherichia coli infection (Acute) The patient is a 67 y/o F w/ PMHx: Chronic COPD, Tobacco use, History of Colorectal Cancer s/p colectomy w/ ostomy, Hypothyroidism who presents to the [facility] ED on 06/04/18 with history of 4-5-day history of dyspnea, cough with mild sputum production, congestion, nausea as well as occasional dry heaving, abdominal cramps and poor intake with increased ostomy output progressively worsening especially over the last 24 hours. (1) Acute Recurrent Severe Hyponatremia, Recurrent Hypovolemic w/ Recurrent AMAURY secondary to High Ostomy Output, Suspect Likely Underlying Chronic Hyponatremic component also, no comparison labs aside admission labs: Admission Na 114, similar to recent presentation but corrected upon recent discharge following treatment for #1, admission BUN/Cr 81/2.14, hydrated, nephrotoxic regimen held, repeat 06/11/18 BUN/Cr 45/1.01, Na 126, patient is on citalopram and given recurrent hyponatremia with patient reported appropriate intake and normalized ostomy output but upon measurements initially feel likely still ongoing high ostomy output. TSH 4.52, free T4 pending, Cortisol initial 28.40 (normal level prior), repeat 51.50 and 59.90 (does not appear to have glucocorticoid deficiency given response and initial), S [id number], U Osm 589 (limited usage), U Na 6 (more consistent w/ hypovolemic presentation), abdominal US w/ until pancreas scattered by bowel gas, head of pancreas unremarkable, prior cholecystectomy, no sign of bile duct obstruction, severe right pelvocaliectasis or less likely a number of large addition renal parenchymal cyst new since 2009. Given atypical findings and recurrent issues Nephrology consulted. 06/12/18 repeat Na following improvement 114-->126-->119, reviewed outpatient and patient has been discarding her ostomy output prior to measurement and from discussions feel likely still high output. Changed BMP to q 4 with increased supplementation. Repeat U Na 5, similar per Nephrology. ID consulted to assure no interventions for recent Shiga gastroenteritis and agreed with current management. 06/12/18 added scheduled lomotil without marked effect, 06/13/18 added sandostatin SC regimen. 06/13/18 Na 123-->06/17/18 Na 130, improving and slowly ostomy output has been decreasing. Maintained on high dose sandostatin and lomotril in addition to frequent at least 5x/day small meals. Per discussion with Nephrology and ID, likely will only take time for improvement given shiga infection complicated by colectomy status. Will discuss with nephrology today and may need to consider hold on IVFs either today or tomorrow with continued BMP trending to assess if patient able to maintain an appropriate stable sodium level. If remains stable would then be able to discharge to home w/ close repeat BMP and close follow-u-p with PCP and Nephrology; however, if has recurrent severe drop as prior, may need to consider transfer to Tertiary or facility with GI access. (2) Hypokalemia w/ NAG Metabolic Acidosis secondary to #1: Admission K+ 3.5, supplementation given, mag 2.4. 06/16/18 K 3.3-->06/17/18 K 4.8, will decrease prior added scheduled BID K supplementation, also ongoing IV K w/ IVFs supplementation. Maintained on also bicarb low dose IV, as noted improving labs and very slowly decreased high output ostomy reduction, will need to consider trial off IVFs, possible in the next 24-48 hours but will need to discuss with Nephrology. (3) Elevated Lipase c/w Acute Pancreatitis: Asymptomatic. Unclear specific etiology, recent malaise, fatigue, admission lipase 1043, repeat 1208 following overnight hydration. Abdominal US w/ until pancreas scattered by bowel gas, head of pancreas unremarkable, prior cholecystectomy, no sign of bile duct obstruction, severe right pelvocaliectasis or less likely a number of large addition renal parenchymal cyst new since 2009. Clears tolerated, transitioned to regular diet w/ diet intake alterations per patient discretion given s/p colectomy status. (4) Recent N/V/Increased ostomy output secondary to E. Coli Induced Gastroenteritis: Recent admission w/ AMAURY, increased ostomy output w/ + shiga toxin on evaluation. She notes upon current admission output had improved, however, upon recent measurements concern for etiology of ongoing hyponatremia. Per Nephrology they noted intention for repeat stool function studies which was negative. ID consulted, agreed with current management. Very slow improvement secondary to her infection recently complicated by s/p colectomy. Continue lactobacillus regimen. (5) Chronic COPD: Recent acute exacerbation treatment, continue ATC duonebs, PRN albuterol, HOB, IS parameters. CXR without acute process. (6) Tobacco Abuse: Encouraged cessation, inpatient consultation per RT, NR if desired. (7) Anxiety and Depression: Given presentation, likely acute hypovolemic hyponatremia as noted, Nephrology consulted given recurrence #1, will continue patient SSRI but again may need to discontinue. (8) Hypothyroidism: Continue home synthroid regimen, TSH mildly elevated, FT4 normal 1.25. Repeat once clinically improved given recent acute presentation. 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 (10) DVT Prophylaxis: SCDs, heparin. Code Visit Inpatient E&M: 94276 Subs Hosp L2
--- NOTE | 2018-06-17 09:03 | PN_ITS ---
Patient Problems: Active and Suspected Problems (Last Updated 06/10/18 @ 14:02 by Willy Steve DO) Pancreatitis (Acute) Shiga toxin-producing Escherichia coli infection (Acute) Subjective: The patient is a 67 y/o F w/ PMHx: Chronic COPD, Tobacco use, History of Colorectal Cancer s/p colectomy w/ ostomy, Hypothyroidism who presents to the [facility] ED on 06/04/18 with history of 4-5-day history of dyspnea, cough with mild sputum production, congestion, nausea as well as occasional dry heaving, abdominal cramps and poor intake with increased ostomy output progressively worsening especially over the last 24 hours. Admission Na 114, similar to recent presentation but corrected upon recent discharge following treatment for #1, admission BUN/Cr 81/2.14, hydrated, nephrotoxic regimen held, repeat 06/11/18 BUN/Cr 45/1.01, Na 126, patient is on citalopram and given recurrent hyponatremia with patient reported appropriate intake and normalized ostomy output but upon measurements initially feel likely still ongoing high ostomy output. TSH 4.52, free T4 pending, Cortisol initial 28.40 (normal level prior), repeat 51.50 and 59.90 (does not appear to have glucocorticoid deficiency given response and initial), S [id number], U Osm 589 (limited usage), U Na 6 (more consistent w/ hypovolemic presentation), abdominal US w/ until pancreas s cattered by bowel gas, head of pancreas unremarkable, prior cholecystectomy, no sign of bile duct obstruction, severe right pelvocaliectasis or less likely a number of large addition renal parenchymal cyst new since 2009. Given atypical findings and recurrent issues Nephrology consulted. 06/12/18 repeat Na following improvement 114-->126-->119, reviewed outpatient and patient has been discarding her ostomy output prior to measurement and from discussions feel likely still high output. Changed BMP to q 4 with increased supplementation. Repeat U Na 5, similar per Nephrology. ID consulted to assure no interventions for recent Shiga gastroenteritis and agreed with current management. 06/12/18 added scheduled lomotil without marked effect, 06/13/18 added sandostatin SC regimen. 06/13/18 Na 123-->06/17/18 Na 130, improving and slowly ostomy output has been decreasing. Maintained on high dose sandostatin and lomotril in addition to frequent at least 5x/day small meals. Per discussion with Nephrology and ID, likely will only take time for improvement given shiga infection complicated by colectomy status. Will discuss with nephrology today and may need to consider hold on IVFs either today or tomorrow with continued BMP trending to assess if patient able to maintain an appropriate stable sodium level. If remains stable would then be able to discharge to home w/ close repeat BMP and close follow-u-p with PCP and Nephrology; however, if has recurrent severe drop as prior, may need to consider transfer to Tertiary or facility with GI access. Admission K+ 3.5, supplementation given, mag 2.4. 06/16/18 K 3.3-->06/17/18 K 4.8, will decrease prior added scheduled BID K supplementation, also ongoing IV K w/ IVFs supplementation. Maintained on also bicarb low dose IV, as noted improving labs and very slowly decreased high output ostomy reduction, will need to consider trial off IVFs, possible in the next 24-48 hours but will need to discuss with Nephrology. Patient with no acute events overnight per self and per nursing report. She states that output has slowly been decreasing and she does state that she is eating small frequent meals but had declined to eat more than 5 small meals per day. Patient again notes that her appetite has continued to improve and she is again eating this morning upon evaluation. Discussed plan of care with patient which would include discussion with nephrology today and consideration of discontinuation of IV fluids either today or tomorrow and continued BMP trending to assess if able to discharge to home safely. Given patient ostomy output suspect that she does chronically have mild hyponatremia. Patient denies fevers, chills, nausea, emesis, abdominal pain, chest pain or dyspnea. Objective: Physical Examination: General: awake, alert, oriented x 3 and cooperative, seated upright in bed, eating breakfast, NAD, more interactive and continues to appear improved. Skin: normal color, turgor, no icterus, cyanosis. HEENT: AT/NC, EOMI, PERRLA, MMM. Lungs: CTA bilaterally, moderate effort, mild decrease BL bases, no rales, ronchi or wheezing. Heart: Regular rate and rhythm; no gallop, rub audible. Abdomen: soft, ostomy RLQ in place, NTTP, ND, normal BS. Extremities: no cyanosis, clubbing, or edema. Neurological: patient awake, alert, oriented x 3; cognitive function intact; pupils equally reactive to light and accomodation; cranial nerves II-XII grossly normal, moving all 4 extremities, no focal deficits, strength improved, preserved. Psychiatric: affect appears normal, no acute evidence of depressive or anxiety feelings. Vitals/I&O's: Vital Signs Temp Pulse Resp BP Pulse Ox 98.2 F 61 16 98/52 L 98 06/17/18 06:46 06/17/18 06:46 06/17/18 06:46 06/17/18 06:46 06/17/18 06:46 Oxygen Delivery Method Room Air Weight: 124 lb 6.404 oz Body Mass Index (BMI) 21.0 Intake and Output for Last 24 Hours 06/15/18 06/16/18 06/17/18 23:59 23:59 23:59 Intake Total 4418 / 4418 4786 / 4786 2664 / 2664 Output Total 7350 / 7350 6050 / 6050 1900 / 1900 Balance -2932 / -2932 -1264 / -1264 764 / 764 Microbiology Past 72 Hours 06/14/18 11:30 Urine, Midstream Urine Culture - Final Mixed Gram Pos & Gram Neg Org Laboratory Results 06/16/18 12:45: Sodium 133 L, Potassium 3.4 L, Chloride 106, Carbon Dioxide 18.0 L, Anion Gap 9, BUN 9, Creatinine 0.93, Estim Creat Clear Calc 52.08, Est GFR (MDRD) Af Amer 78, Est GFR (MDRD) Non-Af 64, BUN/Creatinine Ratio 9.7 L, Glucose 100, Calcium 7.9 L 06/16/18 16:00: Sodium 132 L, Potassium 3.5, Chloride 106, Carbon Dioxide 18.0 L , Anion Gap 8, BUN 9, Creatinine 0.92, Estim Creat Clear Calc 52.64, Est GFR (MDRD) Af Amer 79, Est GFR (MDRD) Non-Af 65, BUN/Creatinine Ratio 9.8 L, Glucose 152 H, Calcium 7.8 L 06/16/18 20:10: Sodium 129 L, Potassium 3.4 L, Chloride 102, Carbon Dioxide 19.0 L, Anion Gap 8, BUN 8, Creatinine 0.87, Estim Creat Clear Calc 55.67, Est GFR (MDRD) Af Amer 84, Est GFR (MDRD) Non-Af 69, BUN/Creatinine Ratio 9.2 L, Glucose 121 H, Calcium 8.6 06/17/18 05:40: WBC 9.5, RBC 3.93 L, Hgb 12.6, Hct 35.0 L, MCV 89.1, MCH 32.1 H, MCHC 36.0, RDW 12.3, RDW Differential 39.1, Plt Count 280, MPV 9.2 06/17/18 05:40: Sodium 130 L, Potassium 4.8, Chloride 104, Carbon Dioxide 21.0, Anion Gap 5, BUN 7, Creatinine 0.90, Estim Creat Clear Calc 53.81, Est GFR (MDRD) Af Amer 80, Est GFR (MDRD) Non-Af 66, BUN/Creatinine Ratio 7.7 L, Glucose 98, Calcium 8.1 L 06/17/18 05:40: Phosphorus 0.9 L* 06/17/18 05:40: Magnesium 1.8 Current Medications Acetaminophen (Tylenol) 650 mg PO Q6H PRN PRN PRN Reason: Mild Pain (1-3)/Temp > 100.7 F Last Admin: 06/14/18 02:36 Dose: 650 mg Acetaminophen/Codeine Phosphate (Tylenol#3) 2 tablet PO BID@0800,1999 [facility] Last Admin: 06/17/18 08:12 Dose: 2 tablet Albuterol Sulfate (Ventolin Aerosols) 2.5 mg INHALATION Q2H PRN PRN PRN Reason: dyspnea, wheezing Albuterol/Ipratropium (Duoneb) 3 ml INHALATION Q6HWA.RT [facility] Last Admin: 06/17/18 07:25 Dose: 3 ml Calcium Carbonate (Tums) 500 mg PO BIDCM [facility] Last Admin: 06/17/18 08:10 Dose: 500 mg Citalopram Hydrobromide (Celexa) 20 mg PO DAILY [facility] Last Admin: 06/16/18 08:30 Dose: 20 mg Cyanocobalamin (Vitamin B12) 100 mcg IM QWEEK [facility] Last Admin: 06/16/18 08:31 Dose: 100 mcg Diphenoxylate HCl/Atropine (Lomotil) 2 tablet PO 4X/DAY [facility] Last Admin: 06/16/18 21:41 Dose: 2 tablet Heparin Sodium (Porcine) (Heparin Na) 5,000 unit SC Q12 [facility] Last Admin: 06/16/18 21:42 Dose: 5,000 unit Potassium Chloride 40 meq/ (Sodium Chloride) 1,020 mls @ 100 mls/hr IV .[id number] [facility] Last Admin: 06/17/18 04:18 Dose: 100 mls/hr Sodium Bicarbonate 150 meq/ (Dextrose) 1,150 mls @ 50 mls/hr IV .Q23H [facility] Last Admin: 06/16/18 11:40 Dose: 50 mls/hr Sodium Phosphate 21 mm/ Sodium (Chloride) 257 mls @ 84 mls/hr IV X1 ONE Stop: 06/17/18 11:33 Lactobacillus Acidophilus (Acidophilus) 1 tablet PO 4X/DAY [facility] Last Admin: 06/17/18 08:10 Dose: 1 tablet Levothyroxine Sodium (Synthroid) 100 mcg PO DAILY@0600 [facility] Last Admin: 06/17/18 06:50 Dose: 100 mcg Magnesium Hydroxide (Milk Of Magnesia) 30 ml PO DAILY PRN PRN PRN Reason: Constipation Octreotide Acetate (Sandostatin) 0.1 mg SC TID [facility] Last Admin: 06/17/18 06:50 Dose: 0.1 mg Ondansetron HCl (Zofran) 4 mg IV Q8H PRN PRN PRN Reason: NAUSEA Last Admin: 06/15/18 15:18 Dose: 4 mg Pancrelipase (Creon Dr 3,000 Unit Capsule) 1 capsule PO TIDCM [facility] Last Admin: 06/17/18 08:09 Dose: 1 capsule Potassium Chloride (K-Dur) 20 meq PO BIDCM [facility] Last Admin: 06/17/18 08:10 Dose: 20 meq Potassium Phos/Sodium Phos (Neutra-Phos Packet) 1 packet PO 4X/DAYCM [facility] Sodium Chloride () 5 - 30 ml IV UD PRN PRN Reason: SALINE FLUSH Last Admin: 06/13/18 19:37 Dose: 10 ml Medical Necessity - Tobacco Use Smoking Status: Current some day smoker Tobacco Use: Cigarettes Assessment/Plan All Active Problems (Last Updated 06/10/18 @ 14:02 by Willy Steve DO) COPD with acute exacerbation (Acute) Acute viral syndrome (Acute) Hyponatremia (Acute) AMAURY (acute kidney injury) (Acute) Pancreatitis (Acute) Shiga toxin-producing Escherichia coli infection (Acute) The patient is a 67 y/o F w/ PMHx: Chronic COPD, Tobacco use, History of Colorectal Cancer s/p colectomy w/ ostomy, Hypothyroidism who presents to the [facility] ED on 06/04/18 with history of 4-5-day history of dyspnea, cough with mild sputum production, congestion, nausea as well as occasional dry heaving, abdominal cramps and poor intake with increased ostomy output progressively worsening especially over the last 24 hours. (1) Acute Recurrent Severe Hyponatremia, Recurrent Hypovolemic w/ Recurrent AMAURY secondary to High Ostomy Output, Suspect Likely Underlying Chronic Hyponatremic component also, no comparison labs aside admission labs: Admission Na 114, similar to recent presentation but corrected upon recent discharge following treatment for #1, admission BUN/Cr 81/2.14, hydrated, nephrotoxic regimen held, repeat 06/11/18 BUN/Cr 45/1.01, Na 126, patient is on citalopram and given recurrent hyponatremia with patient reported appropriate intake and normalized ostomy output but upon measurements initially feel likely still ongoing high ostomy output. TSH 4.52, free T4 pending, Cortisol initial 28.40 (normal level prior), repeat 51.50 and 59.90 (does not appear to have glucocorticoid deficiency given response and initial), S [id number], U Osm 589 (limited usage), U Na 6 (more consistent w/ hypovolemic presentation), abdominal US w/ until pancreas scattered by bowel gas, head of pancreas unremarkable, prior cholecystectomy, no sign of bile duct obstruction, severe right pelvocaliectasis or less likely a number of large addition renal parenchymal cyst new since 2009. Given atypical findings and recurrent issues Nephrology consulted. 06/12/18 repeat Na following improvement 114-->126-->119, reviewed outpatient and patient has been discarding her ostomy output prior to measurement and from discussions feel likely still high output. Changed BMP to q 4 with increased supplementation. Repeat U Na 5, similar per Nephrology. ID consulted to assure no interventions for recent Shiga gastroenteritis and agreed with current management. 06/12/18 added scheduled lomotil without marked effect, 06/13/18 added sandostatin SC regimen. 06/13/18 Na 123-->06/17/18 Na 130, improving and slowly ostomy output has been decreasing. Maintained on high dose sandostatin and lomotril in addition to frequent at least 5x/day small meals. Per discussion with Nephrology and ID, likely will only take time for improvement given shiga infection complicated by colectomy status. Will discuss with nephrology today and may need to consider hold on IVFs either today or tomorrow with continued BMP trending to assess if patient able to maintain an appropriate stable sodium level. If remains stable would then be able to discharge to home w/ close repeat BMP and close follow-u-p with PCP and Nephrology; however, if has recurrent severe drop as prior, may need to consider transfer to Tertiary or facility with GI access. (2) Hypokalemia w/ NAG Metabolic Acidosis secondary to #1: Admission K+ 3.5, herr pplementation given, mag 2.4. 06/16/18 K 3.3-->06/17/18 K 4.8, will decrease prior added scheduled BID K supplementation, also ongoing IV K w/ IVFs supplementation. Maintained on also bicarb low dose IV, as noted improving labs and very slowly decreased high output ostomy reduction, will need to consider trial off IVFs, possible in the next 24-48 hours but will need to discuss with Nephrology. (3) Elevated Lipase c/w Acute Pancreatitis: Asymptomatic. Unclear specific etiology, recent malaise, fatigue, admission lipase 1043, repeat 1208 following overnight hydration. Abdominal US w/ until pancreas scattered by bowel gas, head of pancreas unremarkable, prior cholecystectomy, no sign of bile duct obstruction, severe right pelvocaliectasis or less likely a number of large addition renal parenchymal cyst new since 2009. Clears tolerated, transitioned to regular diet w/ diet intake alterations per patient discretion given s/p colectomy status. (4) Recent N/V/Increased ostomy output secondary to E. Coli Induced Gastroenteritis: Recent admission w/ AMAURY, increased ostomy output w/ + shiga toxin on evaluation. She notes upon current admission output had improved, however, upon recent measurements concern for etiology of ongoing hyponatremia. Per Nephrology they noted intention for repeat stool function studies which was negative. ID consulted, agreed with current management. Very slow improvement secondary to her infection recently complicated by s/p colectomy. Continue lactobacillus regimen. (5) Chronic COPD: Recent acute exacerbation treatment, continue ATC duonebs, PRN albuterol, HOB, IS parameters. CXR without acute process. (6) Tobacco Abuse: Encouraged cessation, inpatient consultation per RT, NR if desired. (7) Anxiety and Depression: Given presentation, likely acute hypovolemic hyponatremia as noted, Nephrology consulted given recurrence #1, will continue patient SSRI but again may need to discontinue. (8) Hypothyroidism: Continue home synthroid regimen, TSH mildly elevated, FT4 normal 1.25. Repeat once clinically improved given recent acute presentation. (9) History of Colorectal Cancer: s/p colectomy w/ ostomy, closely monitor ostomy output given now suspected recurrent high output, automobile mechanic consultation. (10) DVT Prophylaxis: SCDs, heparin. Code Visit Inpatient E&M: 23666 Subs Hosp L2
[2018-06-17] MEDS: Heparin Injection (Vial) 5,000 UNIT/ML VIAL 5000 UNIT SC ×2 (09:11→21:31)
[2018-06-17] MEDS: Citalopram 20 MG Tablet PO (09:11)
[2018-06-17] MEDS: Diphenoxylate/Atrop 1 Tablet 2 TABLET PO ×4 (09:12→21:32)
[2018-06-17 12:15] LABS: Anion Gap 9 (5-15); BUN 8 mg/dL (7-18); BUN/Creat Ratio 10.3 RATIO (10-20); Calcium,Total 7.6 mg/dL (8.5-10.1); Chloride 106 mmol/L (98-107); Creatinine, Serum 0.78 mg/dL (0.55-1.02); EST Glomerular Filtration Rate 79 mL/min (>60); Est Glom Filt Rate - Afr Amer 96 mL/min (>60); Estimated Creatinine Clearance 62.09 ml/min; Glucose 99 mg/dL (74-106); Potassium 4.4 mmol/L (3.5-5.1); Sodium Level 133 mmol/L (136-145)
[2018-06-17] MEDS: Na Biphos/Potassium Phosphate PACKET 1 PACKET PO ×3 (12:21→21:36)
--- NOTE | 2018-06-17 14:50 | PCM.PN.REN ---
Patient Problems: Active and Suspected Problems (Last Updated 06/10/18 @ 14:02 by Willy Steve DO) Pancreatitis (Acute) Shiga toxin-producing Escherichia coli infection (Acute) Subjective: Still with high ostomy output. Patient feels fine. Denies any abdominal pain. Tolerating diet. No new labs today. - Physical Exam General: Alert, Oriented x3 Lungs: Clear to auscultation Cardiovascular: Regular rate Abdomen: Bowel Sounds Present, Soft, Non Tender, - - Ostomy with liquid stools Extremities: No edema Vital Signs Temp Pulse Resp BP Pulse Ox 99.0 F 77 20 H 91/59 L 100 06/17/18 12:17 06/17/18 13:08 06/17/18 13:08 06/17/18 12:17 06/17/18 12:17 Oxygen Delivery Method Room Air Weight: 56.427 kg Body Mass Index (BMI) 21.0 Intake and Output for Last 24 Hours 06/15/18 06/16/18 06/17/18 23:59 23:59 23:59 Intake Total 4418 / 4418 4786 / 4786 4019 / 4019 Output Total 7350 / 7350 6050 / 6050 3700 / 3700 Balance -2932 / -2932 -1264 / -1264 319 / 319 Microbiology Past 72 Hours 06/14/18 11:30 Urine Culture - Final Urine, Midstream Mixed Gram Pos & Gram Neg Org Laboratory Tests Past 24 Hrs 06/16/18 06/16/18 06/17/18 16:00 20:10 05:40 WBC 9.5 RBC 3.93 L Hgb 12.6 Hct 35.0 L MCV 89.1 MCH 32.1 H MCHC 36.0 RDW 12.3 RDW Differential 39.1 Plt Count 280 MPV 9.2 Sodium 132 L 129 L Potassium 3.5 3.4 L Chloride 106 102 Carbon Dioxide 18.0 L 19.0 L Anion Gap 8 8 BUN 9 8 Creatinine 0.92 0.87 Estim Creat Clear Calc 52.64 55.67 Est GFR (MDRD) Af Amer 79 84 Est GFR (MDRD) Non-Af 65 69 BUN/Creatinine Ratio 9.8 L 9.2 L Glucose 152 H 121 H Calcium 7.8 L 8.6 Phosphorus Magnesium 06/17/18 06/17/18 06/17/18 05:40 05:40 05:40 WBC RBC Hgb Hct MCV MCH MCHC RDW RDW Differential Plt Count MPV Sodium 130 L Potassium 4.8 Chloride 104 Carbon Dioxide 21.0 Anion Gap 5 BUN 7 Creatinine 0.90 Estim Creat Clear Calc 53.81 Est GFR (MDRD) Af Amer 80 Est GFR (MDRD) Non-Af 66 BUN/Creatinine Ratio 7.7 L Glucose 98 Calcium 8.1 L Phosphorus 0.9 L* Magnesium 1.8 06/17/18 11:50 WBC RBC Hgb Hct MCV MCH MCHC RDW RDW Differential Plt Count MPV Sodium 133 L Potassium 4.4 Chloride 106 Carbon Dioxide 18.0 L Anion Gap 9 BUN 8 Creatinine 0.78 Estim Creat Clear Calc 62.09 Est GFR (MDRD) Af Amer 96 Est GFR (MDRD) Non-Af 79 BUN/Creatinine Ratio 10.3 Glucose 99 Calcium 7.6 L Phosphorus Magnesium Medical Necessity - Tobacco Use Smoking Status: Current some day smoker Tobacco Use: Cigarettes Assessment/Plan All Active Problems (Last Updated 06/10/18 @ 14:02 by Willy Steve DO) COPD with acute exacerbation (Acute) Acute viral syndrome (Acute) Hyponatremia (Acute) AMAURY (acute kidney injury) (Acute) Pancreatitis (Acute) Shiga toxin-producing Escherichia coli infection (Acute) 1.AMAURY likely due to dehydration from liquid stools. Renal function stable 2. Hyponatremia improving with saline. 3. Shigella diarrhea in May 2018. Repeat stool for shiga toxin negative. Continues to have diarrhea. Consider antidiarrheal agent. 4. Hx colorectal cancer s/p ileostomy with persistent high ostomy output 5. Hypokalemia, NAG metabolic acidosis likely due to GI loss. Replaced as needed. [facility] hosptalist
[2018-06-17 19:02] LABS: Anion Gap 6 (5-15); BUN 8 mg/dL (7-18); BUN/Creat Ratio 10.8 RATIO (10-20); Calcium,Total 7.6 mg/dL (8.5-10.1); Chloride 102 mmol/L (98-107); Creatinine, Serum 0.74 mg/dL (0.55-1.02); EST Glomerular Filtration Rate 84 mL/min (>60); Est Glom Filt Rate - Afr Amer 101 mL/min (>60); Estimated Creatinine Clearance 65.45 ml/min; Glucose 105 mg/dL (74-106); Sodium Level 130 mmol/L (136-145)
--- NOTE | 2018-06-17 23:23 | NURSING ---
Pt's IVs began to alarm and FIELD SUPERINTENDENT went into room. FIELD SUPERINTENDENT reported to this RN that pt began to push buttons on the IV pump trying to turn the alarm off. FIELD SUPERINTENDENT called this RN and this RN went into room. Instructed pt to call next time IV alarmed and to not push any buttons on the pump. This RN checked pumps and made sure pumps were locked.
[2018-06-18] VITALS (7 sets, daily range): BP systolic 95–111; BP diastolic 54–74; PULSE 68–84; RESP 16–18; TEMP 36.5–37.2; O2SAT 96–99
[2018-06-18] MEDS: Potassium Chloride 40 MEQ in 0.9% Normal Saline 1,000 ML 100 MEQ IV (00:37)
[2018-06-18 00:41] LABS: Anion Gap 7 (5-15); BUN 11 mg/dL (7-18); BUN/Creat Ratio 15.7 RATIO (10-20); Calcium,Total 7.6 mg/dL (8.5-10.1); Chloride 103 mmol/L (98-107); EST Glomerular Filtration Rate 89 mL/min (>60); Est Glom Filt Rate - Afr Amer 107 mL/min (>60); Estimated Creatinine Clearance 69.19 ml/min; Glucose 111 mg/dL (74-106); Potassium 4.6 mmol/L (3.5-5.1); Sodium Level 130 mmol/L (136-145)
[2018-06-18] MEDS: Octreotide 0.1 MG/ML ML SC ×3 (05:58→21:55)
[2018-06-18] MEDS: Levothyroxine 100 MCG Tablet PO (05:58)
[2018-06-18 06:23] LABS: Hematocrit 32.7 % (37-47); Hemoglobin 11.7 g/dl (12.0-15.0); Mean Corp Hgb Conc 35.8 g/gl (32-36); Mean Corpuscular Hgb 32.4 pg (27.0-32.0); Mean Corpuscular Volume 90.6 fL (81-99); Mean Platelet Vol. 8.9 fl (6.2-12.0); Platelet Count 274 K/mm3 (150-450); RBC Distribution Width CV 12.5 % (11.6-14.6); RBC Distribution Width SD 40.7 fl (35.1-43.9); Red Blood Count 3.61 M/mm3 (4.2-5.4); Scan Indicated on CBC? Y/N NO
[2018-06-18 06:41] LABS: Anion Gap 6 (5-15); BUN 10 mg/dL (7-18); BUN/Creat Ratio 13.1 RATIO (10-20); Calcium,Total 7.9 mg/dL (8.5-10.1); Chloride 106 mmol/L (98-107); Creatinine, Serum 0.76 mg/dL (0.55-1.02); EST Glomerular Filtration Rate 81 mL/min (>60); Est Glom Filt Rate - Afr Amer 98 mL/min (>60); Estimated Creatinine Clearance 63.73 ml/min; Glucose 110 mg/dL (74-106); Magnesium 1.6 mg/dL (1.6-2.6); Phosphorus 1.7 mg/dL (2.5-4.9); Potassium 5.3 mmol/L (3.5-5.1); Sodium Level 132 mmol/L (136-145)
[2018-06-18] MEDS: Ipratropium/Albuterol Sulfate 3 ML AMPUL.NEB INHALATION ×3 (07:20→19:09)
[2018-06-18] MEDS: Creon 3,000 unit DR Capsule 1 CAP PO ×3 (07:56→16:47)
[2018-06-18] MEDS: Calcium Carbonate 500 MG Tablet PO ×2 (07:57→16:50)
[2018-06-18] MEDS: Acetaminophen/Codeine #3 Tablet 2 TABLET PO ×2 (07:59→20:35)
[2018-06-18] MEDS: 0.9% NaCl Peripheral Flush Adult/Peds IV (08:00)
--- NOTE | 2018-06-18 08:35 | PCM.PN.BLA ---
Progress Note clinically stable. still with high ostomy output. Potassium elevated. Stop potassium supplements oral/iv. Renal fxn stable. Will see how she does off iv fluids. Continue with bicarb drip for NAG metabolic acidosis.
[2018-06-18] MEDS: Diphenoxylate/Atrop 1 Tablet 2 TABLET PO ×4 (09:50→22:02)
[2018-06-18] MEDS: Heparin Injection (Vial) 5,000 UNIT/ML VIAL 5000 UNIT SC ×2 (09:50→21:56)
[2018-06-18] MEDS: Na Biphos/Potassium Phosphate PACKET 1 PACKET PO ×3 (13:39→21:56)
--- NOTE | 2018-06-18 16:21 | PCM.PN.HOSP ---
Patient Problems: Active and Suspected Problems (Last Updated 06/10/18 @ 14:02 by Willy Steve DO) Pancreatitis (Acute) Shiga toxin-producing Escherichia coli infection (Acute) Subjective: Patient was seen and examined. Eager to be discharged. Denied any complaints. Output from the colostomy is reducing. Vitals/I&O's: Vital Signs Temp Pulse Resp BP Pulse Ox 97.7 F L 80 16 111/74 96 06/18/18 13:37 06/18/18 13:50 06/18/18 13:50 06/18/18 13:37 06/18/18 13:50 Oxygen Delivery Method Room Air Weight: 56.427 kg Body Mass Index (BMI) 21.0 Intake and Output for Last 24 Hours 06/16/18 06/17/18 06/18/18 23:59 23:59 23:59 Intake Total 4786 / 4786 4700 / 4700 3922 / 3922 Output Total 6050 / 6050 5400 / 5400 4370 / 4370 Balance -1264 / -1264 -700 / -700 -448 / -448 General: Alert, Oriented x3, Cooperative, No apparent distress HEENT: Atraumatic, PERRLA, EOMI, Normocephalic Oral: Moist Mucosa Neck: Supple, No JVD, Negative Carotid Bruits Lungs: Clear to auscultation, Normal air movement Cardiovascular: Regular rate, Regular Rhythm, Normal S1, Normal S2, No murmurs Abdomen: Bowel Sounds Present, Soft, Non Tender, Non-Distended, - - Left-sided colostomy bag has some dark brown liquid stool Extremities: No edema Skin: No rashes, No breakdown Musculoskeletal: No Tenderness to Palpation of Joints or Extremities Lymphatic: No Cervical, Supraclavicular, or Inguinal Adenopathy Neurological: Cranial nerves II-XII grossly intact, Neuro grossly intact Psych/Mental Status: Normal Affect, Appropriate Laboratory Results 06/17/18 18:30: Sodium 130 L, Potassium 4.0, Chloride 102, Carbon Dioxide 22.0, Anion Gap 6, BUN 8, Creatinine 0.74, Estim Creat Clear Calc 65.45, Est GFR (MDRD) Af Amer 101, Est GFR (MDRD) Non-Af 84, BUN/Creatinine Ratio 10.8, Glucose 105, Calcium 7.6 L 06/17/18 23:50: Sodium 130 L, Potassium 4.6, Chloride 103, Carbon Dioxide 20.0 L, Anion Gap 7, BUN 11, Creatinine 0.70, Estim Creat Clear Calc 69.19, Est GFR (MDRD) Af Amer 107, Est GFR (MDRD) Non-Af 89, BUN/Creatinine Ratio 15.7, Glucose 111 H, Calcium 7.6 L 06/18/18 05:54: WBC 10.0, RBC 3.61 L, Hgb 11.7 L, Hct 32.7 L, MCV 90.6, MCH 32.4 H, MCHC 35.8, RDW 12.5, RDW Differential 40.7, Plt Count 274, MPV 8.9 06/18/18 05:54: Sodium 132 L, Potassium 5.3 H, Chloride 106, Carbon Dioxide 20.0 L, Anion Gap 6, BUN 10, Creatinine 0.76, Estim Creat Clear Calc 63.73, Est GFR (MDRD) Af Amer 98, Est GFR (MDRD) Non-Af 81, BUN/Creatinine Ratio 13.1, Glucose 110 H, Calcium 7.9 L, Phosphorus 1.7 L, Magnesium 1.6 Current Medications Acetaminophen (Tylenol) 650 mg PO Q6H PRN PRN PRN Reason: Mild Pain (1-3)/Temp > 100.7 F Last Admin: 06/14/18 02:36 Dose: 650 mg Acetaminophen/Codeine Phosphate (Tylenol#3) 2 tablet PO BID@0800,2000 [facility] Last Admin: 06/18/18 07:59 Dose: 2 tablet Albuterol Sulfate (Ventolin Aerosols) 2.5 mg INHALATION Q2H PRN PRN PRN Reason: dyspnea, wheezing Albuterol/Ipratropium (Duoneb) 3 ml INHALATION Q6HWA.RT [facility] Last Admin: 06/18/18 13:50 Dose: 3 ml Calcium Carbonate (Tums) 500 mg PO BIDCM [facility] Last Admin: 06/18/18 07:57 Dose: 500 mg Cyanocobalamin (Vitamin B12) 100 mcg IM QWEEK [facility] Last Admin: 06/16/18 08:31 Dose: 100 mcg Diphenoxylate HCl/Atropine (Lomotil) 2 tablet PO 4X/DAY [facility] Last Admin: 06/18/18 13:39 Dose: 2 tablet Heparin Sodium (Porcine) (Heparin Na) 5,000 unit SC Q12 [facility] Last Admin: 06/18/18 09:50 Dose: 5,000 unit Sodium Bicarbonate 150 meq/ (Dextrose) 1,150 mls @ 50 mls/hr IV .Q23H [facility] Last Admin: 06/18/18 12:23 Dose: 50 mls/hr Lactobacillus Acidophilus (Acidophilus) 1 tablet PO 4X/DAY [facility] Last Admin: 06/18/18 13:39 Dose: 1 tablet Levothyroxine Sodium (Synthroid) 100 mcg PO DAILY@0600 [facility] Last Admin: 06/18/18 05:58 Dose: 100 mcg Magnesium Hydroxide (Milk Of Magnesia) 30 ml PO DAILY PRN PRN PRN Reason: Constipation Octreotide Acetate (Sandostatin) 0.1 mg SC TID [facility] Last Admin: 06/18/18 13:56 Dose: 0.1 mg Ondansetron HCl (Zofran) 4 mg IV Q8H PRN PRN PRN Reason: NAUSEA Last Admin: 06/15/18 15:18 Dose: 4 mg Pancrelipase (Creon Dr 3,000 Unit Capsule) 1 capsule PO TIDCM [facility] Last Admin: 06/18/18 12:24 Dose: 1 capsule Potassium Phos/Sodium Phos (Neutra-Phos Packet) 1 packet PO 4X/DAY [facility] Last Admin: 06/18/18 13:39 Dose: 1 packet Sodium Chloride () 5 - 30 ml IV UD PRN PRN Reason: SALINE FLUSH Last Admin: 06/18/18 08:00 Dose: 10 ml Medical Necessity - Tobacco Use Smoking Status: Current some day smoker Tobacco Use: Cigarettes Assessment/Plan All Active Problems (Last Updated 06/10/18 @ 14:02 by Willy Steve DO) COPD with acute exacerbation (Acute) Acute viral syndrome (Acute) Hyponatremia (Acute) AMAURY (acute kidney injury) (Acute) Pancreatitis (Acute) Shiga toxin-producing Escherichia coli infection (Acute) 57-year-old female with past medical history of colorectal RCA status post colectomy, status post colostomy, COPD, hypothyroidism comes in with complaints of shortness of breath as well as cough and found to have increased colostomy output as well as abdominal cramps. 1. Acute recurrent severe hyponatremia, hypovolemic secondary to high ostomy output, improving, sodium is 132 from 130, continue to trend 2. Hyperkalemia secondary to supplements, supplements stopped, will recheck labs in am 3. Hypophosphatemia secondary to high colostomy output, replace, recheck in a.m. 4. Non-anion gap metabolic acidosis, remains on bicarb drip, nephrology consulted, following, labs in a.m. 5. Acute kidney injury, resolved, encourage liberal oral intake 6. COPD, no signs of acute exacerbation, continue with as needed breathing treatments 7. Anxiety/depression 8. Hypothyroidism, thyroid is not 9. History of colorectal cancer status post colectomy, status post colostomy,recent shigella gastroenteritis, on Lomotil, lactobacillus, octreotide 10. Recent pancreatitis, pancreatic lipase 11. DVT Prophylaxis with heparin subcu Code Visit Inpatient E&M: 35028 Subs Hosp L2
[2018-06-19 01:55] VITALS: BP 105/71; PULSE 75; RESP 16; TEMP 36.7; O2SAT 99
[2018-06-19] MEDS: Octreotide 0.1 MG/ML ML SC (06:07)
[2018-06-19] MEDS: Levothyroxine 100 MCG Tablet PO (06:07)
[2018-06-19 06:58] VITALS: PULSE 66; RESP 20
[2018-06-19] MEDS: Ipratropium/Albuterol Sulfate 3 ML AMPUL.NEB INHALATION (06:58)
[2018-06-19 08:04] VITALS: BP 99/58; PULSE 82; RESP 18; TEMP 36.8; O2SAT 95
[2018-06-19] MEDS: Creon 3,000 unit DR Capsule 1 CAP PO ×2 (08:14→11:51)
[2018-06-19] MEDS: Calcium Carbonate 500 MG Tablet PO (08:14)
[2018-06-19] MEDS: Heparin Injection (Vial) 5,000 UNIT/ML VIAL 5000 UNIT SC (08:15)
[2018-06-19] MEDS: Diphenoxylate/Atrop 1 Tablet 2 TABLET PO (08:15)
[2018-06-19] MEDS: Na Biphos/Potassium Phosphate PACKET 1 PACKET PO (08:16)
[2018-06-19] MEDS: Acetaminophen/Codeine #3 Tablet 2 TABLET PO (08:19)
[2018-06-19 08:27] VITALS: PULSE 83
[2018-06-19 09:46] LABS: Albumin, Serum 2.8 g/dL (3.2-5.0); BUN 12 mg/dL (7-18); BUN/Creat Ratio 12.5 RATIO (10-20); Calcium,Total 7.9 mg/dL (8.5-10.1); Chloride 99 mmol/L (98-107); Creatinine, Serum 0.96 mg/dL (0.55-1.02); EST Glomerular Filtration Rate 62 mL/min (>60); Est Glom Filt Rate - Afr Amer 75 mL/min (>60); Estimated Creatinine Clearance 50.45 ml/min; Glucose 245 mg/dL (74-106); Phosphorus 1.4 mg/dL (2.5-4.9); Potassium 3.6 mmol/L (3.5-5.1); Sodium Level 130 mmol/L (136-145)
--- NOTE | 2018-06-19 11:01 | DS.PCM_ITS ---
Discharge Date and Diagnosis Date of Admission: 06/10/18 Date of Discharge: 06/19/18 - Primary Discharge Diagnosis Active and Suspected Problems (Last Updated 06/10/18 @ 14:02 by Willy Steve DO) Acute recurrent severe hyponatremia, hypovolemic Hyperkalemia Hypophosphatemia Hyponatremia Non-Anion gap metabolic acidosis Acute kidney injury Hypomagnesemia Acute pancreatitis - Secondary Discharge Diagnosis Chronic Problems (Last Updated 06/10/18 @ 14:02 by Willy Steve DO) Chronic obstructive pulmonary disease (Chronic) History of colorectal cancer (Chronic) History of creation of ostomy (Chronic) Tobacco use (Chronic) Hypothyroidism (Chronic) History of pancreatitis Recent Shigella gastroenteritis Hospital Course and Treatment Imaging Results: Clinical Impression(s) from Imaging Studies Abdomen Ultrasound 06/10/18 14:31 IMPRESSION: 1. The body and tail the pancreas were scattered by bowel gas. The head of the pancreas is unremarkable. 2. Prior cholecystectomy. No sign of bile duct obstruction. 3. Severe right pelvocaliectasis or, less likely, a number of large adjacent renal parenchymal cysts. This is new since 2009. One might consider nuclear medicine renal scan to document right renal function and/or CT urogram to identify a site of possible urinary tract obstruction. Electronically Signed: George Self MD at 16:55 EDT , Service support , Chest X-Ray 06/14/18 08:05 IMPRESSION: Normal x-ray examination of the chest. Electronically Signed: Gentry Junior DO at 9:21 EDT Tel [phone], Service support , Nephrology-Dr. Chang Operations: None Procedures: None Summary of Care Provided: The patient is a 67 year old F who was recently admitted and discharged with Shigella gastroenteritis comes in with complaints of large output from her colostomy. She was found to have electrolyte derangement with sodium of 114, creatinine of 2.1, increased from baseline of 0.87 and white cell count of 16.2. She was started on IV fluids with improvement in her sodium. Nephrology was consulted. Patient had testing that was negative for enteric bacteria. ID was consulted and no further recommendations were made. She was managed on lactobacillus, Lomotil with improvement in colostomy output. Admitting lipase was elevated suggestive for acute pancreatitis. Managed symptomatically with improvement. She had electrolyte derangement including hypokalemia and later hyperkalemia that were corrected. She was also started on sodium bicarbonate by nephrology for non-anion gap metabolic acidosis with improvement in her bic arbonate at discharge. Discharged on Neutra-Phos for persistent hypophosphatemia and would get repeat blood work in a week. Her renal function at discharge showed resolution of acute kidney injury. She would need to follow-up with a primary care doctor in 1 week as well as nephrology in 2 weeks Subjective: On the day of discharge, patient had no complaints. Was eager to be discharged. Output found her colostomy had gone down; was reported 1050mls per 24 hours, down from initial 6550 mls. Objective: General: Alert, Oriented x3, Cooperative, No apparent distress HEENT: Atraumatic, PERRLA, EOMI, Normocephalic Oral: Moist Mucosa Neck: Supple, No JVD, Negative Carotid Bruits Lungs: Clear to auscultation, Normal air movement Cardiovascular: Regular rate, Regular Rhythm, Normal S1, Normal S2, No murmurs Abdomen: Bowel Sounds Present, Soft, Non Tender, Non-Distended, - - Left-sided colostomy bag has some dark brown liquid stool Extremities: No edema Skin: No rashes, No breakdown Musculoskeletal: No Tenderness to Palpation of Joints or Extremities Lymphatic: No Cervical, Supraclavicular, or Inguinal Adenopathy Neurological: Cranial nerves II-XII grossly intact, Neuro grossly intact Psych/Mental Status: Normal Affect, Appropriate - Physical Exam Vital Signs Temp Pulse Resp BP Pulse Ox 98.3 F 83 18 99/58 L 95 06/19/18 08:04 06/19/18 08:27 06/19/18 08:04 06/19/18 08:04 06/19/18 08:04 Oxygen Delivery Method Room Air Weight: 56.427 kg Body Mass Index (BMI) 21.0 Intake and Output for Last 24 Hours 06/17/18 06/18/18 06/19/18 23:59 23:59 23:59 Intake Total 4700 / 4700 4063 / 4063 370 / 370 Output Total 5400 / 5400 5645 / 5645 800 / 800 Balance -700 / -700 -1582 / -1582 -430 / -430 Laboratory Tests Past 24 Hrs 06/19/18 09:13 Sodium 130 L Potassium 3.6 Chloride 99 Carbon Dioxide 25.0 BUN 12 Creatinine 0.96 Estim Creat Clear Calc 50.45 Est GFR (MDRD) Af Amer 75 Est GFR (MDRD) Non-Af 62 BUN/Creatinine Ratio 12.5 Glucose 245 H Calcium 7.9 L Phosphorus 1.4 L Albumin 2.8 L Discharge Diet: No Restrictions Discharge Activity: Return to Normal Activity Home Medications: Medications to take at Discharge Acetaminophen/Codeine #3 [Tylenol #3 Tablet] 1 tab PO 4X/DAY 06/04/18 Citalopram Hydrobromide [Citalopram HBr] 20 mg PO QHS 06/04/18 Cyanocobalamin [Vitamin B12] 100 mcg IM QWEEK 06/04/18 Levothyroxine [Synthroid] 100 mcg PO QHS 06/04/18 Albuterol IH (ProAir) [Proair Hfa] 1 - 2 puff INHALATION Q4H PRN PRN #1 inhaler 06/12/18 Fluticasone/Salmeterol [Advair 250-50 Diskus] 1 each IH BID #1 blst.w.dev 06/12/18 Lactobacillus Acidophilus [Acidophilus] 1 tablet PO 4X/DAY #100 tablet 06/19/18 Na Biphos/Potassium Phosphate [Neutra-Phos Packet] 1 packet PO BID #14 packet 06/19/18 Following Prescrptions Were Given to Patient: Albuterol IH (ProAir) [Proair Hfa] 1 - 2 puff INHALATION Q4H PRN PRN #1 inhaler PRN Reason: dyspnea, wheezing Fluticasone/Salmeterol [Advair 250-50 Diskus] 1 each IH BID #1 blst.w.dev Na Biphos/Potassium Phosphate [Neutra-Phos Packet] 1 packet PO BID #14 packet Lactobacillus Acidophilus [Acidophilus] 1 tablet PO 4X/DAY #100 tablet Other Amb Orders: Renal Profile Time Frame: 1 Week, Location: Laboratory Primary Care Physician: Daphne Polanco DO [Primary Care Provider] - Please follow up with your Primary Care Physician in: in 1 week Please Follow Up With: Ivett Chang, DO When: within 2 weeks Patient Instructions: What is COPD?, Chronic Lung Disease: Preventing Lung Infections, Why Do You Smoke?, Planning to Quit Smoking, Dehydration, Discharge Instructions for Hyponatremia, ED Dehydration Disposition: Home Minutes spent on discharge:: 45 Patient Condition:: Stable Medical Necessity - Tobacco Use Smoking Status: Current some day smoker Tobacco Use: Cigarettes Meaningful Use Info Meaningful Use Diagnoses (Choose all that apply): None applicable Code Visit Inpatient E&M: 66193 Disch Hosp
--- NOTE | 2018-06-19 11:01 | DCINST_ITS ---
- Discharge Diagnoses Current Active Problems: Current Active and Chronic Problems (Last Updated 06/10/18 @ 14:02 by Willy Steve DO) Pancreatitis (Acute) Shiga toxin-producing Escherichia coli infection (Acute) You will use the following diet at home:: Regular Your food should be the consistency of: Regular Your liquids should be the consistency of: Regular/Thin Discharge Activity: Return to Normal Activity Instructions: What is COPD?, Chronic Lung Disease: Preventing Lung Infections, Why Do You Smoke?, Planning to Quit Smoking, Dehydration, Discharge Instructions for Hyponatremia, ED Dehydration Allergies/Adverse Reactions: Allergies Penicillins Allergy (Verified 06/10/18 12:00) Other Medications to take at Discharge Acetaminophen/Codeine #3 [Tylenol #3 Tablet] 1 tab PO 4X/DAY 06/04/18 Citalopram Hydrobromide [Citalopram HBr] 20 mg PO QHS 06/04/18 Cyanocobalamin [Vitamin B12] 100 mcg IM QWEEK 06/04/18 Levothyroxine [Synthroid] 100 mcg PO QHS 06/04/18 Albuterol IH (ProAir) [Proair Hfa] 1 - 2 puff INHALATION Q4H PRN PRN #1 inhaler 06/12/18 Fluticasone/Salmeterol [Advair 250-50 Diskus] 1 each IH BID #1 blst.w.dev 06/12/18 Lactobacillus Acidophilus [Acidophilus] 1 tablet PO 4X/DAY #100 tablet 06/19/18 The following prescriptions were given: Albuterol IH (ProAir) [Proair Hfa] 1 - 2 puff INHALATION Q4H PRN PRN #1 inhaler PRN Reason: dyspnea, wheezing Fluticasone/Salmeterol [Advair 250-50 Diskus] 1 each IH BID #1 blst.w.dev Lactobacillus Acidophilus [Acidophilus] 1 tablet PO 4X/DAY #100 tablet Orders to be completed after discharge: Renal Profile Time Frame: 1 Week, Location: Laboratory Primary Care Physician: Daphne Polanco DO [Primary Care Provider] - Please follow up with your Primary Care Physician in: in 1 week Test Results: Test results from this visit will be discussed in further detail at your follow- up appointment, if applicable. Proposed Discharge Date: 06/19/18
[2018-06-19] MEDS: 0.9% NaCl Peripheral Flush Adult/Peds IV (11:54)
[2018-06-19 12:31] VITALS: BP 95/57; PULSE 87; RESP 18; TEMP 37; O2SAT 96
--- NOTE | 2018-06-23 15:54 | CASEMGMT ---
SHANTA POWELL Discharge Follow-up Phone Call: ARACELI: Tasha Strata: 4 Call Date: 06/23/18 Discharge Date: 06/19/18 Time of Call:1550 Duration:5 min Admitting Diagnosis: Hyponatremia SHANTA POWELL completed follow-up phone call after recent hospitalization. Patient states that she is doing much better. Patient had no questions or concerns regarding discharge instructions. Patient states that she was able to moss picker prescriptions without any problems. Patient has follow up appts with nephrology and PCP scheduled.
== END 2018-06-19 12:45 | disposition home or self-care (01) | DRG 640 ==
LOC: ED 12:36 → MS3 14:02
PROVIDERS: Family Medicine; Internal Medicine Nephrology; Surgery; Emergency Provider Emergency Medicine; Family Provider Internal Medicine; PCP Internal Medicine; Visit Provider Internal Medicine
DX: E87.1 Hypo-osmolality and hyponatremia (principal); K85.90 Acute pancreatitis without necrosis or infection, unspecified; N17.9 Acute kidney failure, unspecified; E87.2 Acidosis; E83.39 Other disorders of phosphorus metabolism; E83.42 Hypomagnesemia; E87.6 Hypokalemia; E86.0 Dehydration; J44.9 Chronic obstructive pulmonary disease, unspecified; E03.9 Hypothyroidism, unspecified; F17.200 Nicotine dependence, unspecified, uncomplicated; Z85.048 Personal history of other malignant neoplasm of rectum, rectosigmoid junction, and anus; Z90.49 Acquired absence of other specified parts of digestive tract; Z93.2 Ileostomy status; Z87.11 Personal history of peptic ulcer disease; E87.5 Hyperkalemia; A03.9 Shigellosis, unspecified; F32.9 Major depressive disorder, single episode, unspecified; F41.9 Anxiety disorder, unspecified
CPT/HCPCS: 36415; 71046; 76705; 80048; 80053; 80069; 80076; 81001; 82533; 83605; 83690; 83735; 83930; 83935; 84100; 84300; 84439; 84443; 85025; 85027; 87086; 87088; 87506; 94640; 97802; 99282; 99406; J7030; J7040; J7050; A4216; J0610; J0834; J2354; J2405; J3420

== ENCOUNTER → 2018-07-02 11:16 | Outpatient (CLI) | payer OTHER, SELFPAY ==
[2018-07-02 14:11] LABS: Albumin, Serum 3.4 g/dL (3.2-5.0); BUN 21 mg/dL (7-18); BUN/Creat Ratio 24.9 RATIO (10-20); Chloride 100 mmol/L (98-107); Creatinine, Serum 0.84 mg/dL (0.55-1.02); EST Glomerular Filtration Rate 72 mL/min (>60); Est Glom Filt Rate - Afr Amer 87 mL/min (>60); Glucose 105 mg/dL (74-106); Potassium 4.2 mmol/L (3.5-5.1); Sodium Level 135 mmol/L (136-145)
== END ==
PROVIDERS: Family Provider Internal Medicine; PCP Internal Medicine; Visit Provider Internal Medicine Nephrology
DX: N17.9 Acute kidney failure, unspecified (principal)
CPT/HCPCS: 36415; 80069

== ENCOUNTER → 2018-09-07 13:17 | Outpatient (CLI) | payer OTHER, SELFPAY ==
--- NOTE | 2018-09-07 13:25 | CT_ITS ---
STUDY: CT BRAIN WITHOUT CONTRAST REASON FOR EXAM: Female, 68 years old. Increasing memory loss. History of colorectal carcinoma and ileostomy. RADIATION DOSAGE (If Supplied By Facility): CTDIvol = ( 44.99 ) mGy, DLP = ( 745.49 ) mGycm TECHNIQUE: Transaxial CT imaging of the brain was performed without administration of intravenous contrast material. Individualized dose optimization techniques were used for this CT. COMPARISON: Comparison is made with prior study dated September 21, 2013. FINDINGS: Normal soft tissue structures. Normal calvarium. Normal size ventricles and extra-axial spaces for the patient's age. Normal white matter tracts of the cerebral hemispheres. A tiny rounded hypodensity is seen in the insular cortex of the left temporal lobe on axial image #15. Clinical correlation is recommended. Normal brainstem. Normal cerebellum. There is no intracranial hemorrhage. There are no findings of an acute ischemic infarction. Normal visualized paranasal sinuses. CT/Brain/Head without Contrast IMPRESSION: Possible tiny lacunar change is seen in the insular cortex of the left temporal lobe Electronically Signed: Donovan Aguirre MD at 14:25 EST Tel [phone], Service support ,
== END ==
LOC: CT 13:18
PROVIDERS: Family Provider Internal Medicine; PCP Internal Medicine; Referring Provider Internal Medicine; Visit Provider Internal Medicine
DX: R41.3 Other amnesia (principal)
CPT/HCPCS: 70450

== ENCOUNTER → 2018-09-11 16:00 | Outpatient (CLI) | payer OTHER, SELFPAY ==
--- NOTE | 2018-09-11 16:04 | ECHOD_ITS ---
Reason For Study: CVA Procedure This was a 2D Doppler, Color Flow transthoracic echocardiogram. The exam was of adequate technical quality. Exam performed in department. Left Ventricle Normal LV size. Left ventricular systolic function is normal. The estimated ejection fraction is 60 %. No evidence for diastolic dysfunction. No regional wall motion abnormalities noted. Right Ventricle Normal RV size. Normal systolic function. Atria Normal left atrium. Normal right atrium. No doppler evidence for ASD. Bubble contrast study negative for right to left interatrial shunt. Mitral Valve There is mild to moderate mitral annular calcification. Mild diffuse mitral valve thickening. Mild focal mitral valve calcification of the anterior leaflet. The mitral valve chordae are thickened and/or calcified. Trivial mitral valve insufficiency. Tricuspid Valve Normal tricuspid valve. Trivial tricuspid valve insufficiency. Right ventricular systolic pressure estimated to be 19 mmHg. Aortic Valve Trisinus/trileaflet aortic valve. Mild focal aortic valve calcification. Pulmonic Valve The pulmonic valve is not well visualized. Great Vessels Normal sized aortic root. Pericardium/Pleural No pericardial effusion. Medication 22 gauge I.V. with prn adaptor inserted into right arm. Performed a rapid injection of agitated mix of 9 cc saline and 1cc air to assess for atrial septal defect. MMode/2D Measurements & Calculations LVIDd: 4.2 cm IVSd: 0.97 cm Ao root diam: 2.9 cm RVDd: 3.5 cm LVPWd: 1.0 cm LAV(MOD-bp): 32.9 ml LA A4 area: 15.0 cm2 LA dimension(2D): 3.5 cm LAV(MOD-bp) Indexed: 20.6 ml/m2 LAV(MOD-sp2): 26.2 ml LAV(MOD-sp4): 39.7 ml RA A4 area: 9.1 cm2 Time Measurements MV dec time: 0.17 sec Doppler Measurements & Calculations MV E max yvan: 69.3 cm/sec Lat Peak E' Yvan: 7.7 cm/sec Med Peak E' Yvan: 5.5 cm/sec MV A max yvan: 84.5 cm/sec E/E' lat: 9.0 E/E' med: 12.6 MV E/A: 0.82 Ao V2 max: 128.4 cm/sec LV V1 max: 120.5 cm/sec TR max yvan: 197.4 cm/sec Ao max P.6 mmHg LV V1 max P.8 mmHg TR max P.6 mmHg Interpretation Summary Left ventricular systolic function is normal. The estimated ejection fraction is 60 %. There is mild to moderate mitral annular calcification. Mild diffuse mitral valve thickening. Mild focal mitral valve calcification of the anterior leaflet. The mitral valve chordae are thickened and/or calcified. Trivial mitral valve insufficiency. Trivial tricuspid valve insufficiency. Mild focal aortic valve calcification. Right ventricular systolic pressure estimated to be 19 mmHg. No evidence for diastolic dysfunction. Bubble contrast study negative for right to left interatrial shunt. Ordering Physician: Daphne Polanco Referring Physician: Daphne Polanco Performed By: Sabine Henson, JESSE, RVT
== END ==
PROVIDERS: Family Provider Internal Medicine; PCP Internal Medicine; Referring Provider Internal Medicine; Visit Provider Internal Medicine
DX: Z86.73 Personal history of transient ischemic attack (TIA), and cerebral infarction without residual deficits (principal)
CPT/HCPCS: 93306; A4216

== ENCOUNTER → 2023-08-05 | Outpatient (CLI) | payer MEDICARE, SELFPAY ==
--- NOTE | 2023-08-05 12:57 | US_ITS ---
STUDY: ULTRASOUND OF THE FEMALE PELVIS - COMPLETE REASON FOR EXAM: Female, 73 years old. ACUTE VAGINITIS LMP: Patient is postmenopausal. TECHNIQUE: Transabdominal and Transvaginal TECHNICAL QUALITY: Adequate. COMPARISON: None. FINDINGS: The uterus is anteverted and is in a midline position. The uterus measures 9.2 cm x 6.9 cm x 6 cm. Normal uterine cervix. There is evidence of a complex solid and cystic mass within the endometrium. This measures 6.7 cm x 7.3 cm x 6.2 cm. Increased vascularity is seen. The right ovary is non-visualized. The left ovary is non-visualized. There is no fluid in the cul-de-sac. The pre void volume of the bladder was 114 ml. US/Pelvic (Non ) IMPRESSION: 6.7 cm x 7.3 cm x 6.2 cm complex mass in the endometrium. Electronically Signed: Donovan Aguirre MD at 11:34 EST ,
== END | disposition home or self-care (01) ==
LOC: US 12:52
PROVIDERS: PCP Internal Medicine; Referring Provider Urology; Visit Provider Urology
DX: N76.0 Acute vaginitis (principal); Z78.0 Asymptomatic menopausal state; Z92.3 Personal history of irradiation
CPT/HCPCS: 76830; 76856

== ENCOUNTER → 2023-08-18 | Outpatient (CLI) | payer MEDICARE, SELFPAY ==
--- NOTE | 2023-08-18 11:41 | CT_ITS ---
STUDY: CT ABDOMEN AND PELVIS WITH CONTRAST REASON FOR EXAM: Female, 73 years old. PELVIC PAIN. Complex mass found in the endometrium. RADIATION DOSAGE (If Supplied By Facility): CTDIvol = ( 12.53 ) mGy, DLP = ( 854.67 ) mGycm TECHNIQUE: Transaxial images were obtained from the dome of the diaphragm to the symphysis pubis with oral contrast. Oral and amp; IV Gastrografin and amp; 100mL Isovue-300 was administered. Sagittal and coronal images were reconstructed. Individualized dose optimization techniques were used for this CT. COMPARISON: Comparison is made with prior sonogram of the pelvis dated August 05, 2023. FINDINGS: Mild scarring at the lung bases. The visualized portions of the heart are within normal limits. Mild degree of intrahepatic biliary ductal dilatation. There are surgical clips in the gallbladder fossa consistent with a prior cholecystectomy. Minimally dilated common bile duct most likely secondary to the postcholecystectomy state. Normal spleen. Normal pancreas. Normal bilateral adrenal glands. Diffuse atrophy of the right kidney with marked degree of a right hydronephrosis and hydroureter. Left parapelvic cyst. There is a small hiatal hernia. Normal small intestine. A colostomy is seen in the anterior right lower quadrant. There is non-visualization of the appendix. There is diffuse atherosclerotic calcification of the abdominal aorta, without a demonstrated aneurysm. Normal inferior vena cava. Normal retroperitoneum. Normal urinary bladder. There is a 5.7 cm x 7.4 cm complex mass in the pelvis most likely within the uterus. Small amount of free fluid is seen in the cul-de-sac. Normal abdominal wall. There are degenerative changes of the visualized lumbar spine. CT/Abdomen/Pelvis WITH Contrast IMPRESSION: 5.7 cm x 7.4 cm complex mass in the pelvis most likely within the uterus. Small amount of free fluid in the cul-de-sac. The patient is status post colostomy in the anterior right abdominal wall. Prior cholecystectomy. Mild degree of intrahepatic biliary ductal dilatation. Atrophy of the right kidney with hydronephrosis. Electronically Signed: Donovan Aguirre MD at 14:40 EST ,
[2023-08-18 14:21] LABS: CREATININE FINGERSTICK 1.2 mg/dL (0.55-1.02)
== END | disposition home or self-care (01) ==
LOC: CT 11:40
PROVIDERS: PCP Internal Medicine; Referring Provider Obstetrics & Gynecology Gynecologic Oncology; Visit Provider Obstetrics & Gynecology Gynecologic Oncology
DX: R93.89 Abnormal findings on diagnostic imaging of other specified body structures (principal)
CPT/HCPCS: 74177; Q9967